=== PATIENT | female | born 1975 | race Caucasian/White ===

== ENCOUNTER 2017-08-07 12:17 | Emergency (ER) | payer SELFPAY ==
[~2017-08-07] VITALS: Ht 152.4 cm; Wt 47.2 kg
[2017-08-07 12:29] VITALS: BP 117/61
--- NOTE | 2017-08-07 12:35 | PHYS DOC ---
Adult General Chief Complaint Chief Complaint: BACK PAIN - NO INJURY HPI HPI Patient is a 41 year old female who presents with thoracic lumbar pain. She was riding a horse yesterday and got bucked off and landed on the ground. She states she started having pain in her back between her shoulder blades. She denies any numbness or tingling or weakness in her arms or legs. She's been taking Tylenol without any relief. Review of Systems Review of Systems Constitutional: Denies fever or chills [] Eyes: Denies change in visual acuity, redness, or eye pain [] HENT: Denies nasal congestion or sore throat [] Respiratory: Denies cough or shortness of breath [] Cardiovascular: No additional information not addressed in HPI [] GI: Denies abdominal pain, nausea, vomiting, bloody stools or diarrhea [] : Denies dysuria or hematuria [] Musculoskeletal: Positive for back pain, Denies joint pain [] Integument: Denies rash or skin lesions [] Neurologic: Denies headache, focal weakness or sensory changes [] Endocrine: Denies polyuria or polydipsia [] Physical Exam Physical Exam Constitutional: Well developed, well nourished, no acute distress, non-toxic appearance. [] HENT: Normocephalic, atraumatic, bilateral external ears normal, oropharynx moist, no oral exudates, nose normal. [] Eyes: PERRLA, EOMI, conjunctiva normal, no discharge. [] Neck: Normal range of motion, no tenderness, supple, no stridor. [] Cardiovascular:Heart rate regular rhythm, no murmur [] Lungs & Thorax: Bilateral breath sounds clear to auscultation [] Abdomen: Bowel sounds normal, soft, no tenderness, no masses, no pulsatile masses. [] Skin: Warm, dry, no erythema, no rash. [] Back: Mild tenderness palpation midline to the thoracic area, no step-offs noted , no CVA tenderness. [] Extremities: No tenderness, no cyanosis, no clubbing, ROM intact, no edema. [] Neurologic: Alert and oriented X 3, normal motor function, normal sensory function, no focal deficits noted. [] Psychologic: Affect normal, judgement normal, mood normal. [] EKG EKG [] Radiology/Procedures Radiology/Procedures [address] [id number] IMAGING REPORT Signed PATIENT: SIMON AZAR ACCOUNT: [id number] : 1975 LOCATION: ER AGE: 41 SEX: F EXAM STATUS: REG ER ORD. PHYSICIAN: JEFFRY DUNNE MD REASON: pain after fall PROCEDURE: THORACIC SPINE 3V Thoracic spine, 3 views, 08/07/2017: History: Fall, back pain There is a mild right convexity thoracic scoliosis. No fracture or bony abnormality is detected. The paraspinous soft tissues are unremarkable. IMPRESSION: 1. Mild thoracic scoliosis. 2. No acute bony abnormality is detected. DICTATED AND SIGNED BY: ESPERANZA CARR MD DATE: 08/07/17 1255 CC: JEFFRY DUNNE MD; PCP,NO ~ Impressions: Back strain Course & Med Decision Making Course & Med Decision Making Pertinent Labs and Imaging studies reviewed. (See chart for details) X-rays do not show any acute abnormalities of her thoracic back. Her pain is between her shoulder blades. She has no neurological deficits. She has baclofen refill that she can obtain. She used to be on 10 mg hydrocodone before she went to retirement. She has an appointment in 3-4 days with his surgeon. I've instructed her to use [place] as instructed not to drive or drink alcohol with it. She is agreeable plan being discharged in stable condition this time. Dragon Disclaimer Dragon Disclaimer This chart was dictated in whole or in part using Voice Recognition software in a busy, high-work load, and often noisy Emergency Department environment. It may contain unintended and wholly unrecognized errors or omissions. Departure Departure: Impression: Primary Impression: Back pain Disposition: 01 HOME, SELF-CARE Condition: STABLE Referrals: PCP,NO (PCP) Patient Instructions: Back Pain, Adult Additional Instructions: The x-rays your back did not show anything broken. Your being discharged home. You can use your baclofen as instructed for discomfort and pain. You can use [place] as instructed. Do not use these medicines together. Do not drive or taking these medicines or drink alcohol. Return the ER if you have worsening pain, numbness or weakness in your arms or legs or other concerns. Scripts Hydrocodone Bit/Acetaminophen (NORCO 5-325 TABLET) 1 Each Tablet 1-2 TAB PO PRN Q6HRS Y for PAIN, #10 TAB 0 Refills Prov: JEFFRY DUNNE MD 08/07/17 Problem Qualifiers Primary Impression: Back pain Back pain location: thoracic back pain Chronicity: acute Back pain laterality: midline Qualified Codes: M54.6 - Pain in thoracic spine JEFFRY DUNNE MD Aug 07, 2017 12:35
--- NOTE | 2017-08-07 12:59 | RAD ---
Thoracic spine, 3 views, 08/07/2017: History: Fall, back pain There is a mild right convexity thoracic scoliosis. No fracture or bony abnormality is detected. The paraspinous soft tissues are unremarkable. IMPRESSION: 1. Mild thoracic scoliosis. 2. No acute bony abnormality is detected.
[2017-08-07] MEDS ORDERED: HYDR-971 PO (13:21)
== END 2017-08-07 13:31 | disposition home or self-care (01) ==
LOC: ER 12:17
DX: S29.012A Strain of muscle and tendon of back wall of thorax, initial encounter (principal); M54.5 Low back pain; V80.010A Animal-rider injured by fall from or being thrown from horse in noncollision accident, initial encounter; Y93.52 Activity, horseback riding; Y99.8 Other external cause status; Y92.89 Other specified places as the place of occurrence of the external cause
CPT/HCPCS: 72072; 99284

== ENCOUNTER 2018-08-06 17:18 | Emergency (ER) | payer SELFPAY ==
[~2018-08-06] VITALS: Ht 152.4 cm; Wt 56.7 kg
[~2018-08-06 17:18] MED LIST: HYDR-971 PO
--- NOTE | 2018-08-06 18:36 | ED.ADGEN ---
Past History Past Medical History: Other Past Surgical History: Cholecystectomy, Tubal ligation, Other Alcohol Use: Rarely Drug Use: None Adult General Chief Complaint Chief Complaint "... I tripped over my chocolate Lab... he 's 9 month old...is name is Dian.. and I feel down 15 stairs.. nga hurt my entire right side..." HPI HPI Patient is a 42 year old female who presents with the above history and complaints of fall down stairs after tripping on her dog. Patient localizes pain and right shoulder, side and back. Patient is ambulatory. Patient has had extensive surgery on her lower back previously. Pain appears to be localized in rotator cuff area. Patient is able to hold arm extended on right. But does have some give way weakness with elevation above 90. Distal neurovascular intact. DTRs are +2 at patella and brachial. Patient denies any other injury. Review of Systems Review of Systems Constitutional: Denies fever or chills [] Eyes: Denies change in visual acuity, redness, or eye pain [] HENT: Denies nasal congestion or sore throat [] Respiratory: Denies cough or shortness of breath [] Cardiovascular: No additional information not addressed in HPI [] GI: Denies abdominal pain, nausea, vomiting, bloody stools or diarrhea [] : Denies dysuria or hematuria [] Musculoskeletal: Complaints of back pain and right shoulder joint pain Integument: Denies rash or skin lesions [] Neurologic: Denies headache, focal weakness or sensory changes [] Endocrine: Denies polyuria or polydipsia [] All other systems were reviewed and found to be within normal limits, except as documented in this note. Family History Family History Noncontributory Current Medications Current Medications Current Medications Medications (Trade) Dose Ordered Sig/Geovanny Start Time Stop Time Status Last Admin Dose Admin Oxycodone/ Acetaminophen (Percocet 5/325) 2 tab 1X ONCE 08/06/18 19:00 08/06/18 19:01 DC 08/06/18 19:02 2 TAB Allergies Allergies Allergies Coded Allergies Type Severity Reaction Last Updated Verified cyclobenzaprine Allergy Unknown 08/07/17 Yes meloxicam Allergy Unknown 08/07/17 Yes naproxen Allergy Unknown 08/07/17 Yes tramadol Allergy Unknown 08/07/17 Yes Physical Exam Physical Exam Constitutional: Moderately acute distress, non-toxic appearance. [] HENT: Normocephalic, atraumatic, bilateral external ears normal, oropharynx moist, no oral exudates, nose normal. [] Eyes: PERRLA, EOMI, conjunctiva normal, no discharge. [] Neck: Normal range of motion, no tenderness, supple, no stridor. [] Cardiovascular:Heart rate regular rhythm, no murmur [] Lungs & Thorax: Bilateral breath sounds equal at apexes with a few scattered wheezes auscultation [] Abdomen: Bowel sounds normal, soft, no liver or spleen tenderness, no masses, no pulsatile masses. [] Skin: Warm, dry, no erythema, no rash. [] Back: Some paraspinal muscle tenderness tenderness, no CVA tenderness. [Has old surgery scar in the thoracic and lumbar spine.] Extremities: No tenderness, no cyanosis, no clubbing, ROM intact, no edema. Right shoulder tenderness as per HPI Neurologic: Alert and oriented X 3, normal motor function, normal sensory function, no focal deficits noted. [] Psychologic: Affect chest, judgement normal, mood normal. [] Current Patient Data Vital Signs Vital Signs Date Time Temp Pulse Resp B/P (MAP) Pulse Ox O2 Delivery O2 Flow Rate FiO2 08/06/18 19:02 16 08/06/18 18:57 75 131/73 (92) 100 Room Air 08/06/18 17:30 98.2 EKG EKG [] Radiology/Procedures Radiology/Procedures My interpretation of thoracic film shows scoliosis. No obvious fracture dislocation. My interpretation of shoulder shows no obvious displaced fracture or dislocation. No obvious fracture clavicle. Lung portion film shows no obvious pneumothorax or acute cardiopulmonary changes. See formal report when available[] Course & Med Decision Making Course & Med Decision Making Pertinent Labs and Imaging studies reviewed. (See chart for details). Patient use ice packs as needed to contusions , back and shoulder. Patient may use a sling for comfort but allow passive range of motion of right shoulder. Follow-up primary care. Consider follow-up orthopedics. Take Tylenol for pain. . Return if any concerns. [] Final Impression Final Impression 1. Fall 2. Rt shoulder, clavicle and back contusion[] 3. Rt Rotator Cuff tear / Shoulder impaction Dragfarheen Disclaimer Dragon Disclaimer This electronic medical record was generated, in whole or in part, using a voice recognition dictation system. SHAWANDA MORALES MD Aug 06, 2018 18:36
[2018-08-06 18:57] VITALS: BP 131/73
[2018-08-06] MEDS ORDERED: oxyCODONE/APAP 5/325 1 TAB TABLET PO ONE (19:00)
--- NOTE | 2018-08-07 08:21 | RAD ---
SHOULDER 2+V RIGHT, CLAVICLE RIGHT, THORACIC SPINE 3V Clinical Indication: Fall last night. Right shoulder and clavicle pain, upper back pain. Comparison: Thoracic spine, 3 views, August 07, 2017. Findings: The paravertebral stripes are smooth. Visualized lungs are clear. Cholecystectomy clips. Cardiac size normal. The vertebral body height and alignment are maintained in the thoracic spine. Cervical spine alignment is maintained on the swimmer's view. There is no acute fracture or dislocation of the right shoulder. The joint spaces are maintained. No soft tissue swelling. No acute right rib abnormality. There is no acute fracture or dislocation of the right clavicle. IMPRESSION: No acute bone abnormality. Electronically signed by: Umesh Wellington MD (08/07/2018 8:18 AM) [id number]
== END 2018-08-06 19:05 | disposition home or self-care (01) ==
LOC: ER 17:18
DX: S40.011A Contusion of right shoulder, initial encounter (principal); S10.93XA Contusion of unspecified part of neck, initial encounter; S20.221A Contusion of right back wall of thorax, initial encounter; Z88.8 Allergy status to other drugs, medicaments and biological substances; W10.8XXA Fall (on) (from) other stairs and steps, initial encounter; Y93.89 Activity, other specified; Y92.89 Other specified places as the place of occurrence of the external cause; Y99.8 Other external cause status
CPT/HCPCS: 72072; 73000; 73030; 99284

== ENCOUNTER 2019-01-05 19:13 | Emergency (ER) | payer SELFPAY ==
[~2019-01-05] VITALS: Ht 152.4 cm; Wt 43.1 kg
[~2019-01-05 19:13] MED LIST changes: +HYDR-3165 PO; -HYDR-971 PO
--- NOTE | 2019-01-05 19:33 | ED.ADGEN ---
Past History Past Medical History: Other Past Surgical History: Cholecystectomy, Tubal ligation, Other Alcohol Use: Rarely Drug Use: None Adult General Chief Complaint Chief Complaint "... I was riding 'Snowball' .. this morning.. and she got spoked.. and threw me off... .I landed on my Rt shoulder....but I am still hurting... HPI HPI Patient is a 43 year old female who presents with above hx and complaints of pain after fall from her horse " Snowball". Patient fell onto her right side. Patient localizes her pain in right shoulder clavicle and scapular area. Does have some mild tenderness to right chest wall. Injury occurred this morning however discomfort is not resolved. Patient denies any other injury. Patient is right-hand dominant. Patient normally healthy. No history immunosuppression. No specific ill contacts.. Review of Systems Review of Systems Constitutional: Denies fever or chills [] Eyes: Denies change in visual acuity, redness, or eye pain [] HENT: Denies nasal congestion or sore throat [] Respiratory: Denies cough or shortness of breath [] Cardiovascular: No additional information not addressed in HPI [] GI: Denies abdominal pain, nausea, vomiting, bloody stools or diarrhea [] : Denies dysuria or hematuria [] Musculoskeletal: Complains of right shoulder, trapezius, clavicle, and scapular pain Integument: Denies rash or skin lesions [] Neurologic: Denies headache, focal weakness or sensory changes [] Endocrine: Denies polyuria or polydipsia [] All other systems were reviewed and found to be within normal limits, except as documented in this note. Family History Family History Noncontributory Current Medications Current Medications Current Medications Medications (Trade) Dose Ordered Sig/Geovanny Start Time Stop Time Status Last Admin Dose Admin Oxycodone/ Acetaminophen (Percocet 5/325) 2 tab 1X ONCE 01/05/19 20:00 01/05/19 20:06 DC 01/05/19 20:19 2 TAB Allergies Allergies Allergies Coded Allergies Type Severity Reaction Last Updated Verified cyclobenzaprine Allergy Unknown 08/07/17 Yes meloxicam Allergy Unknown 08/07/17 Yes naproxen Allergy Unknown 08/07/17 Yes tramadol Allergy Unknown 08/07/17 Yes Physical Exam Physical Exam Constitutional: Well developed, well nourished, [id number] distress, non- toxic appearance. [] HENT: Normocephalic, atraumatic, bilateral external ears normal, oropharynx moist, no oral exudates, nose normal. [] Eyes: PRRLA, EOMI, conjunctiva normal, no discharge. 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 [] Cardiovascular:Heart rate regular rhythm, no murmur [] Lungs & Thorax: Bilateral breath sounds equal at apexes with scattered wheezes on auscultation []Mild right chest wall tenderness. Abdomen: Bowel sounds normal, soft, no tenderness, no masses, no pulsatile masses. [] Old surgery scars. Skin: Warm, dry, no erythema, no rash. [] Back: No tenderness, no CVA tenderness. [] Extremities: No tenderness, no cyanosis, no clubbing, ROM intact, no edema. [] Except findings in right shoulder. Patient has deltoid sensation in right shoulder. Does have some weakness in right shoulder when held in extension. Has obvious right trapezius spasm. Distal neurovascular does however appear intact. Neurologic: Alert and oriented X 3, normal motor function, normal sensory function, no focal deficits noted. [] Psychologic: Affect normal, judgement normal, mood normal. [] Current Patient Data Vital Signs Vital Signs Date Time Temp Pulse Resp B/P (MAP) Pulse Ox O2 Delivery O2 Flow Rate FiO2 01/05/19 20:19 Room Air 01/05/19 19:35 98.2 69 18 98 EKG EKG [] Radiology/Procedures Radiology/Procedures My interpretation chest x-ray shows no acute cardiopulmonary findings. No pneumothorax. No obvious displaced rib fractures. No obvious clavicle fracture. Right shoulder shows no obvious dislocation or fracture. Does have findings of previous surgical clips in abdomen. See formal report when available[]. Course & Med Decision Making Course & Med Decision Making Pertinent Labs and Imaging studies reviewed. (See chart for details). Patient use ice packs as needed. Patient take Tylenol and ibuprofen as needed for pain. For marked pain may take Percocet up to 4 times a day. Patient to wear sling. Patient follow-up with primary and orthopedics. Patient take arm out of sling to do passive range of motion 4 times a day. Patient return if any concerns. Patient encouraged not to smoke. [] Final Impression Final Impression 1. Contusion Rt. shoulder 2. Partial Rt Rotator cu[ff and AC tear] Dragon Disclaimer Dragon Disclaimer This electronic medical record was generated, in whole or in part, using a voice recognition dictation system. Discharge Summary Visit Information Final Diagnosis Problems Medical Problems: (1) AC separation Status: Acute (2) Animal-rider injured by fall from or being thrown from horse in noncollision accident, sequela Status: Acute (3) Rotator cuff (capsule) sprain Status: Acute Brief Hospital Course Allergies Allergies Coded Allergies Type Severity Reaction Last Updated Verified cyclobenzaprine Allergy Unknown 08/07/17 Yes meloxicam Allergy Unknown 08/07/17 Yes naproxen Allergy Unknown 08/07/17 Yes tramadol Allergy Unknown 08/07/17 Yes Vital Signs Vital Signs Date Time Temp Pulse Resp B/P (MAP) Pulse Ox O2 Delivery O2 Flow Rate FiO2 01/05/19 20:19 Room Air 01/05/19 19:35 98.2 69 18 98 Brief Hospital Course Ms. Mancini is a 43 old female who presented with hx of fall from her horse " Snow ball". Suspect partial rotatory cuff tear and ac separation. Discharge Information Condition at Discharge: Improved, Stable Disposition/Orders: D/C to Home Dischare Medications Current Medications Oxycodone/ Acetaminophen (Percocet 5/325) 2 tab 1X ONCE PO Last administered on 01/05/19at 20:19; Admin Dose 2 TAB; Start 01/05/19 at 20:00; Stop 01/05/19 at 20:06; Status DC Active Scripts Active Percocet 5-325 Mg Tablet (Oxycodone Hcl/Acetaminophen) 1 Each Tablet 1 Tab PO PRN Q6HRS PRN Ipava 5-325 Tablet (Hydrocodone Bit/Acetaminophen) 1 Each Tablet 1-2 Tab PO PRN Q6HRS PRN Dragon Disclaimer This chart was dictated in whole or in part using Voice Recognition software in a busy, high-work load, and often noisy Emergency Department environment. It may contain unintended and wholly unrecognized errors or omissions. SHAWANDA MORALES MD Jan 05, 2019 19:33
[2019-01-05 19:35] VITALS: BP 127/52
[2019-01-05] MEDS ORDERED: oxyCODONE/APAP 5/325 1 TAB TABLET PO ONE (20:00)
[2019-01-05] MEDS ORDERED: OXYC1TAB15 PO (20:05)
--- NOTE | 2019-01-05 20:17 | RAD ---
SHOULDER 2+V RIGHT, CHEST PA LATERAL History: fall from horse, right shoulder pain Comparison: None. Findings: The cardiomediastinal silhouette is normal. Pulmonary vasculature is normal. The lungs are clear. No pleural effusion or pneumothorax is seen. There is no acute bone abnormality. Right upper quadrant surgical clips are present. Three-view right shoulder x-ray exam was performed. Joint spaces are normal. No fracture or bony destruction. Soft tissues are unremarkable. IMPRESSION: No acute cardiopulmonary process. If the bony thorax fracture is a persistent concern, consider further imaging assessment. Right shoulder is unremarkable. Electronically signed by: Chuy De La Garza MD (01/05/2019 8:14 PM) [facility]
== END 2019-01-05 20:50 | disposition home or self-care (01) ==
LOC: ER 19:13
DX: S43.101A Unspecified dislocation of right acromioclavicular joint, initial encounter (principal); S43.421A Sprain of right rotator cuff capsule, initial encounter; R07.89 Other chest pain; Z88.6 Allergy status to analgesic agent; Z88.8 Allergy status to other drugs, medicaments and biological substances; V80.010A Animal-rider injured by fall from or being thrown from horse in noncollision accident, initial encounter; Y93.29 Activity, other involving ice and snow; Y92.89 Other specified places as the place of occurrence of the external cause; Y99.8 Other external cause status
CPT/HCPCS: 71046; 73030; 99284

== ENCOUNTER 2019-01-27 20:15 | Emergency (ER) | payer SELFPAY ==
[~2019-01-27] VITALS: Ht 152.4 cm; Wt 45.4 kg
[~2019-01-27 20:15] MED LIST changes: +OXYC1TAB15 PO
--- NOTE | 2019-01-27 20:53 | PHYS DOC ---
Past History Past Medical History: No Pertinent History Past Surgical History: Cholecystectomy, Alcohol Use: None Drug Use: None Adult General Chief Complaint Chief Complaint: LOWER BACK PAIN OR INJURY HPI HPI Patient is a 43-year-old female who presents with complaint of lower back and tailbone pain after falling at work. Patient rates pain to be moderate. She states that pain is worsened with movement and with palpation of the affected areas. She denies any loss of bowel or bladder function and also denies saddle anesthesia. Review of Systems Review of Systems Constitutional: Denies fever or chills [] Respiratory: Denies cough or shortness of breath [] Cardiovascular: No additional information not addressed in HPI [] : Denies dysuria or hematuria [] Musculoskeletal: Positive lower back pain [] Integument: Denies rash or skin lesions [] Neurologic: Denies headache, focal weakness or sensory changes [] Current Medications Current Medications Current Medications Medications (Trade) Dose Ordered Sig/Geovanny Start Time Stop Time Status Last Admin Dose Admin Acetaminophen/ Codeine Phosphate (Tylenol #3) 1 tab 1X ONCE 01/27/19 21:00 01/27/19 21:01 01/27/19 20:49 1 TAB Allergies Allergies Allergies Coded Allergies Type Severity Reaction Last Updated Verified cyclobenzaprine Allergy Unknown 08/07/17 Yes meloxicam Allergy Unknown 08/07/17 Yes naproxen Allergy Unknown 08/07/17 Yes tramadol Allergy Unknown 08/07/17 Yes Physical Exam Physical Exam Constitutional: Well developed, well nourished, no acute distress, non-toxic appearance. [] Cardiovascular:Heart rate regular rhythm, no murmur [] Lungs & Thorax: Bilateral breath sounds clear to auscultation [] Skin: Warm, dry, no erythema, no rash. [] Back: She reports tenderness to palpation in the mid to lower paraspinal musculature. [] Current Patient Data Vital Signs Vital Signs Date Time Temp Pulse Resp B/P (MAP) Pulse Ox O2 Delivery O2 Flow Rate FiO2 01/27/19 20:49 16 01/27/19 20:20 98.8 68 99 Room Air EKG EKG [] Radiology/Procedures Radiology/Procedures [] Course & Med Decision Making Course & Med Decision Making Pertinent Labs and Imaging studies reviewed. (See chart for details) [] Dragon Disclaimer Dragon Disclaimer This electronic medical record was generated, in whole or in part, using a voice recognition dictation system. Departure Departure: Impression: Primary Impression: Low back strain Additional Impression: Coccyx contusion Disposition: 01 HOME, SELF-CARE Condition: STABLE Referrals: PCP,NO (PCP) Patient Instructions: Form - Excuse from Work, School, or Physical Activity, Lumbosacral Strain, Tailbone Injury Scripts Orphenadrine Citrate (ORPHENADRINE CITRATE) 100 Mg Tablet.er 1 TAB PO BID PRN for MUSCLE SPASMS, #14 TAB Prov: JESS JESSICA Jr. DO 01/27/19 Acetaminophen With Codeine (TYLENOL WITH CODEINE #3 TABLET) 1 Each Tablet 1 TAB PO Q6HRS PRN for PAIN, #12 TAB Prov: JESS JESSICA Jr. DO 01/27/19 Problem Qualifiers Primary Impression: Low back strain Encounter type: initial encounter Qualified Codes: S39.012A - Strain of muscle, fascia and tendon of lower back, initial encounter Additional Impression: Coccyx contusion Encounter type: initial encounter Qualified Codes: S30.0XXA - Contusion of lower back and pelvis, initial encounter JESS JESSICA Jr. DO Jan 27, 2019 20:53
[2019-01-27] MEDS ORDERED: ACETAMINOPHEN/CODEINE 300/30MG TABLET PO ONE (21:00)
[2019-01-27 21:25] VITALS: BP 110/56
[2019-01-27] MEDS ORDERED: ACET-704 PO (21:25)
[2019-01-27] MEDS ORDERED: ORPH-16 PO (21:25)
--- NOTE | 2019-01-28 08:16 | RAD ---
SACRUM COCCYX 3V, LUMBAR SPINE 2-3V Clinical Indication: fall, hit tail bone, low back pain. Comparison: Thoracic spine, 3 views, August 06, 2018. Findings: There is spinous process fusion hardware of L4-L5. Lumbar spine vertebral body height and alignment are maintained. There is disc space narrowing, vacuum disc phenomenon, and endplate spurring and sclerosis of L1/L2. 6 other disc spaces are maintained. The mineralization is normal. The sacroiliac joints are symmetric. No diastasis of symphysis pubis. The hip joints are intact. Sacrum and coccyx alignment is maintained on the lateral view. No acute fracture is seen. There are phleboliths in the pelvis. IMPRESSION: No acute fracture or malalignment. Electronically signed by: Umesh Wellington MD (01/28/2019 8:13 AM) [id number]
== END 2019-01-27 21:30 | disposition home or self-care (01) ==
LOC: ER 20:15
DX: S39.012A Strain of muscle, fascia and tendon of lower back, initial encounter (principal); Z90.49 Acquired absence of other specified parts of digestive tract; Z98.890 Other specified postprocedural states; Z88.6 Allergy status to analgesic agent; Z88.8 Allergy status to other drugs, medicaments and biological substances; W18.39XA Other fall on same level, initial encounter; Y93.89 Activity, other specified; Y92.89 Other specified places as the place of occurrence of the external cause; Y99.0 Civilian activity done for income or pay
CPT/HCPCS: 72100; 72220; 99284

== ENCOUNTER 2019-08-27 10:05 | Emergency (ER) | payer SELFPAY ==
[~2019-08-27] VITALS: Ht 152.4 cm; Wt 47.2 kg
[~2019-08-27 10:05] MED LIST changes: +ACET-704 PO; +ORPH-16 PO
[2019-08-27] MEDS ORDERED: IV NORMAL SALINE 1,000ML 1,000 ML IV ONE (10:45)
[2019-08-27] MEDS ORDERED: ONDANSETRON PF 4 MG/2 ML VIAL. IVP ONE (10:45)
--- NOTE | 2019-08-27 10:49 | PHYS DOC ---
Past History Past Medical History: Kidney Stones, Other Past Surgical History: Cholecystectomy, , Tubal ligation, Other Additional Past Surgical Histo: Left shoulder rotator cuff x 3, L-spine fusion, R eye prosthetic, Smoking: Less than 1pk/day Additional Smoking Information: 4-5 cigs a day Alcohol Use: None Drug Use: None Adult General Chief Complaint Chief Complaint: ABDOMINAL PAIN HPI HPI Patient is a 43 y/o female with a history of kidney stones, tubal ligation, and cholecystectomy presents to the ED with RLQ abdominal pain past 3 days. Associated nausea and vomiting. States that pain stated in her right groin and radiated to her right flank. Her last kidney stnoe was 1 year ago. Denies fever, dysuria, CP and SOB. Review of Systems Review of Systems Constitutional: Denies fever or chills Eyes: Denies redness or eye pain HENT: Denies nasal congestion or sore throat Respiratory: Denies cough or shortness of breath Cardiovascular: Denies chest pain or palpitations GI: Reports RLQ abdominal pain, nausea, or vomiting : Denies dysuria or hematuria Musculoskeletal: Reports right flank pain Integument: Denies rash or skin lesions Complete systems were reviewed and found to be within normal limits, except as documented in this note. Allergies Allergies Allergies Coded Allergies Type Severity Reaction Last Updated Verified cyclobenzaprine Allergy Unknown 08/07/17 Yes meloxicam Allergy Unknown 08/07/17 Yes naproxen Allergy Unknown 08/07/17 Yes tramadol Allergy Unknown 08/07/17 Yes Physical Exam Physical Exam Constitutional: Well developed, well nourished, no acute distress, non-toxic appearance HENT: Normocephalic, atraumatic, oropharynx moist Cardiovascular: Heart rate normal, regular rhythm Lungs & Thorax: Bilateral breath sounds clear to auscultation, no wheezing Abdomen: Right lower quadrant tenderness, pain in RLQ w/ R leg raising Skin: Warm, dry, no erythema, no rash Back: Right flank pain Extremities: No tenderness, ROM intact, no edema Neurologic: Alert and oriented X 3, normal motor function, normal sensory fun ction, no focal deficits noted Psychologic: Affect normal, judgement normal, mood normal Current Patient Data Vital Signs Vital Signs Date Time Temp Pulse Resp B/P (MAP) Pulse Ox O2 Delivery O2 Flow Rate FiO2 08/27/19 10:16 98.3 71 16 98 Room Air EKG EKG [] Radiology/Procedures Radiology/Procedures PROCEDURE: CT ABDOMEN PELVIS WO CONTRAST EXAM: CT ABDOMEN/PELVIS WITHOUT CONTRAST. HISTORY: Right flank pain and hematuria. TECHNIQUE: Computed tomography of the abdomen and pelvis was performed without intravenous contrast. COMPARISON: None. FINDINGS: Lung windows through the visualized portions of the bases reveal mild atelectasis. Bone windows reveal posterior interspinous fusion at L4-5. There are no suspicious lesions. A 7 mm hypoattenuating focus in hepatic segment 2 is most likely a benign cyst. The gallbladder is surgically absent. The pancreas, adrenal glands and spleen are unremarkable. There are no pathologically enlarged lymph nodes. There are no renal or ureteral calculi. There is at least mild right renal atrophy and some urothelial thickening along the renal pelvis. There is no hydronephrosis or focal cortical scarring. No focal renal lesions are appreciated without contrast. There are changes of pelvic floor relaxation. Changes of fallopian tube closure are noted. There is no evidence of appendicitis. There is no small bowel obstruction. IMPRESSION: 1. No renal or ureteral calculi. 2. Mild right renal atrophy. Right urothelial thickening suggests ascending infection or inflammation. No hydronephrosis. *One or more of the following individualized dose reduction techniques were utilized for this examination: 1. Automated exposure control. 2. Adjustment of the mA and/or kV according to patient size. 3. Use of iterative reconstruction technique. Electronically signed by: Doris Watt MD (08/27/2019 12:12 PM) [facility] Course & Med Decision Making Course & Med Decision Making Patient is a 43-year-old female with a history of kidney stones,tubal ligation who presents with right lower quadrant abdominal pain for past 3 days. Associated nausea and vomiting. Pt states this feels like her previous kidney stones. CT abdomen showed no renal or ureteral calculi, mild right renal atroph y, right urothelial thickening suggests ascending infection or inflammation, no hydronephrosis. Will discharge with Keflex and [place]. Patient stable for discharge with outpatient follow-up with PCP. Discussed findings and plan with patient and family, who acknowledge understanding and agreement. Dragon Disclaimer Dragon Disclaimer This electronic medical record was generated, in whole or in part, using a voice recognition dictation system. Departure Departure: Impression: Primary Impression: Pyelonephritis Disposition: 01 HOME, SELF-CARE Condition: STABLE Referrals: PCP,NO (PCP) Patient Instructions: Pyelonephritis, Adult, Humz-kk-Obat Scripts Cephalexin (KEFLEX) 500 Mg Capsule 1 CAP PO TID for Pyelonephritis for 7 Days, #21 CAP 0 Refills Prov: ALISHA FRANKLIN DO 08/27/19 Hydrocodone Bit/Acetaminophen (NORCO 5-325 TABLET) 1 Each Tablet 0.5-1 TAB PO Q6HRS PRN for PAIN, #6 TAB Prov: ALISHA FRANKLIN DO 08/27/19 ALISHA FRANKLIN DO Aug 27, 2019 10:49
[2019-08-27 10:53] LABS: BASO # 0.1 x10^3/uL (0.0-0.2); BASO % 1 % (0-3); EOS # 0.2 x10^3/uL (0.0-0.7); EOS % 2 % (0-3); HEMATOCRIT 44.3 % (36.0-47.0); HEMOGLOBIN 14.7 g/dL (12.0-15.5); LYMPH # 2.5 x10^3/uL (1.0-4.8); LYMPH % 22 % (24-48); MEAN CORPUSCULAR HEMOGLOBIN 30 pg (25-35); MEAN CORPUSCULAR HGB CONC 33 g/dL (31-37); MEAN CORPUSCULAR VOLUME 91 fL (79-100); MONO # 0.8 x10^3/uL (0.0-1.1); MONO % 7 % (0-9); NEUT # 7.5 x10^3uL (1.8-7.7); NEUT % 68 % (31-73); PLATELET COUNT 351 x10^3/uL (140-400); RED BLOOD COUNT 4.89 x10^6/uL (3.50-5.40); RED CELL DISTRIBUTION WIDTH 14.6 % (11.5-14.5); WHITE BLOOD COUNT 11.1 x10^3/uL (4.0-11.0)
[2019-08-27 11:05] LABS: BACTERIA,URINE FEW /HPF (0-FEW); BILIRUBIN,URINE NEG (NEG); CLARITY,URINE HAZY; COLOR,URINE YELLOW; GLUCOSE,URINE NEG (NEG); NITRITE,URINE NEG (NEG); UROBILINOGEN,URINE 0.2 mg/dL (0.2 mg/dL)
[2019-08-27 11:06] LABS: SQUAMOUS EPITHELIAL CELL,UR MOD /LPF
[2019-08-27 11:06] LABS: ALBUMIN 3.9 g/dL (3.4-5.0); ALBUMIN/GLOBULIN RATIO 0.9 (1.0-1.7); CALCIUM 9.3 mg/dL (8.5-10.1); CREATININE 0.7 mg/dL (0.6-1.0); GFR 90.5; MAGNESIUM 2.1 mg/dL (1.8-2.4); POTASSIUM 4.1 mmol/L (3.5-5.1); TOTAL BILIRUBIN 0.5 mg/dL (0.2-1.0); TOTAL PROTEIN 8.1 g/dL (6.4-8.2)
--- NOTE | 2019-08-27 12:15 | RAD ---
EXAM: CT ABDOMEN/PELVIS WITHOUT CONTRAST. HISTORY: Right flank pain and hematuria. TECHNIQUE: Computed tomography of the abdomen and pelvis was performed without intravenous contrast. COMPARISON: None. FINDINGS: Lung windows through the visualized portions of the bases reveal mild atelectasis. Bone windows reveal posterior interspinous fusion at L4-5. There are no suspicious lesions. A 7 mm hypoattenuating focus in hepatic segment 2 is most likely a benign cyst. The gallbladder is surgically absent. The pancreas, adrenal glands and spleen are unremarkable. There are no pathologically enlarged lymph nodes. There are no renal or ureteral calculi. There is at least mild right renal atrophy and some urothelial thickening along the renal pelvis. There is no hydronephrosis or focal cortical scarring. No focal renal lesions are appreciated without contrast. There are changes of pelvic floor relaxation. Changes of fallopian tube closure are noted. There is no evidence of appendicitis. There is no small bowel obstruction. IMPRESSION: 1. No renal or ureteral calculi. 2. Mild right renal atrophy. Right urothelial thickening suggests ascending infection or inflammation. No hydronephrosis. *One or more of the following individualized dose reduction techniques were utilized for this examination: 1. Automated exposure control. 2. Adjustment of the mA and/or kV according to patient size. 3. Use of iterative reconstruction technique. Electronically signed by: Doris Watt MD (08/27/2019 12:12 PM) [facility]
[2019-08-27] MEDS ORDERED: IV NORMAL SALINE 50ML 50 ML ONE (12:27)
[2019-08-27] MEDS ORDERED: cefTRIAXone SODIUM 1 GM VIAL ONE (12:27)
[2019-08-27] MEDS ORDERED: HYDROcodone/APAP 5/325MG 1 TAB TABLET PO ONE (12:30)
[2019-08-27] MEDS ORDERED: CEPH-264 PO (12:35)
[2019-08-27] MEDS ORDERED: HYDR-3165 PO (12:35)
[2019-08-27 13:00] VITALS: BP 116/75
== END 2019-08-27 13:03 | disposition home or self-care (01) ==
LOC: ER 10:05
DX: N12 Tubulo-interstitial nephritis, not specified as acute or chronic (principal); R11.2 Nausea with vomiting, unspecified; F17.210 Nicotine dependence, cigarettes, uncomplicated; Z87.442 Personal history of urinary calculi; Z90.49 Acquired absence of other specified parts of digestive tract; Z98.890 Other specified postprocedural states; Z98.51 Tubal ligation status; Z88.8 Allergy status to other drugs, medicaments and biological substances; Z88.6 Allergy status to analgesic agent
CPT/HCPCS: 36415; 74176; 80053; 81001; 83690; 83735; 85025; 87086; 96361; 96365; 96375; 99285; J0696; J2405; J3010; J7030

== ENCOUNTER 2019-09-06 19:33 | Emergency (ER) | payer SELFPAY ==
[~2019-09-06] VITALS: Ht 152.4 cm; Wt 51.3 kg
[~2019-09-06 19:33] MED LIST changes: +CEPH-264 PO
--- NOTE | 2019-09-06 19:48 | PHYS DOC ---
Past History Past Medical History: Kidney Stones, UTI, Other Past Surgical History: Cholecystectomy, , Tubal ligation, Other Additional Past Surgical Histo: Left shoulder rotator cuff x 3, L-spine fusion, R eye prosthetic, Smoking: Less than 1pk/day Alcohol Use: None Drug Use: None Adult General Chief Complaint Chief Complaint: "... I was here a week or 2 ago and diagnosed with pyelonephritis. I have been taking my Keflex but I still having some pain...' [facility] HPI Patient is a 43 year old female who presents with above hx and complaints of pyelonephritis. Patient seen on [address] that showed right pyelonephritis. No renal stone or obstruction. Patient was discharged on Keflex 500 mg 3 times a day. Patient returns with having continued right flank tenderness. Patient does have a history of kidney stones. Does have occasional nausea. No active vomiting currently. Patient denies any fever or chills. No recent travel. No history immunosuppression. Review of CT on 1120 showed no renal or ureteral calculi. Right renal atrophy, but did have right ureter thickening suggestive of pyelonephritis. Review of Systems Review of Systems Constitutional: Denies fever or chills [] Eyes: Denies change in visual acuity, redness, or eye pain [] HENT: Denies nasal congestion or sore throat [] Respiratory: Denies cough or shortness of breath [] Cardiovascular: No additional information not addressed in HPI [] GI: Complaints of right flank abdominal pain, nausea.. Denies vomiting, bloody stools or diarrhea [] : Denies dysuria or hematuria [] Musculoskeletal: Denies back pain or joint pain [] Integument: Denies rash or skin lesions [] Neurologic: Denies headache, focal weakness or sensory changes [] Endocrine: Denies polyuria or polydipsia [] All other systems were reviewed and found to be within normal limits, except as documented in this note. Family History Family History Noncontributory Current Medications Current Medications He nursing for home meds Allergies Allergies Allergies Coded Allergies Type Severity Reaction Last Updated Verified cyclobenzaprine Allergy Unknown 08/07/17 Yes meloxicam Allergy Unknown 08/07/17 Yes naproxen Allergy Unknown 08/07/17 Yes tramadol Allergy Unknown 08/07/17 Yes Physical Exam Physical Exam Constitutional: Mild acute distress, non-toxic appearance. [] HENT: Normocephalic, atraumatic, bilateral external ears normal, oropharynx moist, no oral exudates, nose normal. [] Eyes: Lt eye pupil reactive to light and EOMI. Rt. eye is glass, , conjunctiva normal, no discharge. [] Neck: Normal range of motion, no tenderness, supple, no stridor. [] Cardiovascular:Heart rate regular rhythm, no murmur [] Lungs & Thorax: Bilateral breath sounds equal at apex with few scattered wheezes on auscultation [] Abdomen: Bowel sounds decreased,, soft, right flank tenderness, no masses, no pulsatile masses. []Old surgery scars . Mild rebound to right flank. Distended. Skin: Warm, dry, no erythema, no rash. [] Back: No tenderness, right CVA tenderness. [] Extremities: No tenderness, no cyanosis, no clubbing, ROM intact, no edema. No psoas sign. Neurologic: Alert and oriented X 3, normal motor function, normal sensory function, no focal deficits noted. [] Psychologic: Affect anxious, judgement normal, mood normal. [] EKG EKG [] Radiology/Procedures Radiology/Procedures [][place] [id number] IMAGING REPORT Signed PATIENT: SIMON AZAR ACCOUNT: [id number] : 1975 LOCATION: ER AGE: 43 SEX: F EXAM STATUS: REG ER ORD. PHYSICIAN: SHAWANDA MORALES MD REASON: abdomen pain,X 2 WEEKS, H/O DOREEN. L-SPINE SURGERY-YEARS AGO PROCEDURE: ACUTE ABDOMEN SERIES PA chest and AP upright supine abdomen x-rays HISTORY: Abdominal pain, cholecystectomy. COMPARISON: CT abdomen August 27, 2019. FINDINGS: Heart and mediastinum are unremarkable. No pulmonary opacities or pleural effusions. Cholecystectomy clips. Spinous process fusion hardware L4-L5. Moderate volume of stool. No dilated small bowel loops. No abnormal air-fluid levels in the bowel. Pelvic phleboliths. IMPRESSION: Constipation with a moderate volume of stool. No small bowel obstruction. No acute process in the chest. Electronically signed by: Lola Mo MD (09/06/2019 8:17 PM) [facility] DICTATED AND SIGNED BY: LOLA MO MD DATE: 09/06/192016 CC: SHAWANDA MORALES MD; PCP,SANTANA ~ Course & Med Decision Making Course & Med Decision Making Pertinent Labs and Imaging studies reviewed. (See chart for details) Impression: 1. Rt. Flank Abd. Pain- Renal Colic 2. Out Pt. Tx. Failure 3. Pyelonephrosis/ itis 4. Leukocytosis 5. Hx UTI 6. Constipation Pt. admitted, but before transport up the [place], decided she want discharge. Risks discussed with pt. Exhibit [employer] capacity. Will discharge on Keflex and Flagyl. Pt. informed may return at any time if she elects to be admitted. [] Dragon Disclaimer Dragon Disclaimer This electronic medical record was generated, in whole or in part, using a voice recognition dictation system. Departure Departure: Disposition: 01 HOME/RESIDENCE PRIOR TO ADM Condition: STABLE Referrals: PCP,SANTANA (PCP) Scripts Metronidazole (FLAGYL) 500 Mg Tablet 500 MG PO TID for pyleonephitis for 10 Days, #30 TAB Prov: SHAWANDA MORALES MD 09/06/19 Cephalexin (KEFLEX) 500 Mg Capsule 500 MG PO TID for pyelonephritis for 10 Days, BOTTLE Prov: SHAWANDA MORALES MD 09/06/19 Dragon Disclaimer This chart was dictated in whole or in part using Voice Recognition software in a busy, high-work load, and often noisy Emergency Department environment. It may contain unintended and wholly unrecognized errors or omissions. Dragon Disclaimer This chart was dictated in whole or in part using Voice Recognition software in a busy, high-work load, and often noisy Emergency Department environment. It may contain unintended and wholly unrecognized errors or omissions. SHAWANDA MORALES MD Sep 06, 2019 19:48
[2019-09-06] MEDS ORDERED: IV RINGERS SOLUTION,LACTATED 1,000 ML IV ONE (20:00)
[2019-09-06 20:13] LABS: BARBITURATES NEG (NEG); BENZODIAZEPINES NEG (NEG); CANNABINOIDS NEG (NEG); COCAINE NEG (NEG); METHADONE NEG (NEG); OPIATES POS (NEG); PHENCYCLIDINE NEG (NEG)
[2019-09-06 20:14] LABS: BILIRUBIN,URINE NEG (NEG); CLARITY,URINE CLEAR; COLOR,URINE YELLOW; GLUCOSE,URINE NEG (NEG); NITRITE,URINE NEG (NEG); UROBILINOGEN,URINE 2 mg/dL (0.2 mg/dL)
[2019-09-06 20:15] LABS: BACTERIA,URINE FEW /HPF (0-FEW); RBC,URINE OCC /HPF (0-2); SQUAMOUS EPITHELIAL CELL,UR MOD /LPF; WBC,URINE RARE /HPF (0-4)
[2019-09-06] MEDS ORDERED: KETOROLAC 30 MG/ML VIAL. IVP ONE (20:15)
[2019-09-06 20:18] LABS: AMPHETAMINE/METHAMPHETAMINE NEG (NEG)
--- NOTE | 2019-09-06 20:20 | RAD ---
PA chest and AP upright supine abdomen x-rays HISTORY: Abdominal pain, cholecystectomy. COMPARISON: CT abdomen August 27, 2019. FINDINGS: Heart and mediastinum are unremarkable. No pulmonary opacities or pleural effusions. Cholecystectomy clips. Spinous process fusion hardware L4-L5. Moderate volume of stool. No dilated small bowel loops. No abnormal air-fluid levels in the bowel. Pelvic phleboliths. IMPRESSION: Constipation with a moderate volume of stool. No small bowel obstruction. No acute process in the chest. Electronically signed by: Adin Riley MD (09/06/2019 8:17 PM) [facility]
[2019-09-06] MEDS ORDERED: IV NORMAL SALINE 100ML 100 ML ONE (20:21)
[2019-09-06 20:34] LABS: BASO # 0.1 x10^3/uL (0.0-0.2); BASO % 1 % (0-3); EOS # 0.2 x10^3/uL (0.0-0.7); EOS % 2 % (0-3); HEMATOCRIT 38.2 % (36.0-47.0); HEMOGLOBIN 12.8 g/dL (12.0-15.5); LYMPH # 2.8 x10^3/uL (1.0-4.8); LYMPH % 28 % (24-48); MEAN CORPUSCULAR HEMOGLOBIN 30 pg (25-35); MEAN CORPUSCULAR HGB CONC 34 g/dL (31-37); MEAN CORPUSCULAR VOLUME 90 fL (79-100); MONO # 1.1 x10^3/uL (0.0-1.1); MONO % 11 % (0-9); NEUT # 5.7 x10^3uL (1.8-7.7); NEUT % 58 % (31-73); PLATELET COUNT 365 x10^3/uL (140-400); RED BLOOD COUNT 4.26 x10^6/uL (3.50-5.40); RED CELL DISTRIBUTION WIDTH 14.3 % (11.5-14.5); WHITE BLOOD COUNT 9.8 x10^3/uL (4.0-11.0)
[2019-09-06 20:50] LABS: ALBUMIN 3.5 g/dL (3.4-5.0); ALBUMIN/GLOBULIN RATIO 0.9 (1.0-1.7); C REACTIVE PROTEIN 34.3 mg/L (0-3.3); CREATININE 0.8 mg/dL (0.6-1.0); GFR 77.6; POTASSIUM 3.6 mmol/L (3.5-5.1); TOTAL BILIRUBIN 0.7 mg/dL (0.2-1.0); TOTAL PROTEIN 7.4 g/dL (6.4-8.2)
[2019-09-06] MEDS ORDERED: ACETAMINOPHEN 325 MG TABLET PO PRN (21:15)
[2019-09-06] MEDS ORDERED: KETOROLAC 15 MG/ML VIAL. IVP PRN (21:15)
[2019-09-06] MEDS ORDERED: ONDANSETRON PF 4 MG/2 ML VIAL. IV PRN (21:15)
[2019-09-06 21:36] LABS: SEDIMENTATION RATE 35 (0-25)
[2019-09-06 22:16] VITALS: BP 105/64
[2019-09-06] MEDS ORDERED: METR500T PO (22:35)
[2019-09-06] MEDS ORDERED: CEPH-264 PO (22:35)
[2019-09-06] MEDS ORDERED: MAGNESIUM HYDROXIDE 2,400 MG/30 ML ORAL.SUSP. ONE (22:40)
[2019-09-06] MEDS ORDERED: MAGNESIUM HYDROXIDE 2,400 MG/30 ML ORAL.SUSP. PO ONE (22:45)
[2019-09-07] MEDS ORDERED: IV RINGERS SOLUTION,LACTATED 1,000 ML IV SCH (06:00)
[2019-09-07] MEDS ORDERED: IPRATRPIUM/ALBUTEROL 0.5/2.5MG 3 ML NEBU. NEB SCH (08:00)
== END 2019-09-06 22:42 | disposition home or self-care (01) ==
LOC: ER 19:33
DX: N23 Unspecified renal colic (principal); N12 Tubulo-interstitial nephritis, not specified as acute or chronic; D72.829 Elevated white blood cell count, unspecified; K59.00 Constipation, unspecified; Z87.440 Personal history of urinary (tract) infections; Z87.442 Personal history of urinary calculi; Z90.49 Acquired absence of other specified parts of digestive tract; Z98.890 Other specified postprocedural states; Z98.51 Tubal ligation status; F17.200 Nicotine dependence, unspecified, uncomplicated; Z88.8 Allergy status to other drugs, medicaments and biological substances; Z88.6 Allergy status to analgesic agent
CPT/HCPCS: 36415; 74022; 80048; 80053; 80307; 81001; 82150; 83690; 84702; 85025; 85610; 85651; 85730; 86140; 87040; 87086; 96365; 96367; 96375; 99285; J0696; J1885; J3490; J7120

== ENCOUNTER 2019-09-10 10:46 | Emergency (ER) | payer SELFPAY ==
[~2019-09-10] VITALS: Ht 152.4 cm; Wt 47.2 kg
[~2019-09-10 10:46] MED LIST changes: +METR500T PO
[2019-09-10] MEDS ORDERED: IV NORMAL SALINE 1,000ML 1,000 ML IV SCH (11:14)
[2019-09-10 11:26] LABS: BASO # 0.1 x10^3/uL (0.0-0.2); BASO % 1 % (0-3); EOS # 0.2 x10^3/uL (0.0-0.7); EOS % 2 % (0-3); HEMATOCRIT 41.7 % (36.0-47.0); HEMOGLOBIN 13.9 g/dL (12.0-15.5); LYMPH # 2.5 x10^3/uL (1.0-4.8); LYMPH % 24 % (24-48); MEAN CORPUSCULAR HEMOGLOBIN 30 pg (25-35); MEAN CORPUSCULAR HGB CONC 33 g/dL (31-37); MEAN CORPUSCULAR VOLUME 90 fL (79-100); MONO # 0.7 x10^3/uL (0.0-1.1); MONO % 7 % (0-9); NEUT # 7.2 x10^3uL (1.8-7.7); NEUT % 68 % (31-73); PLATELET COUNT 405 x10^3/uL (140-400); RED BLOOD COUNT 4.65 x10^6/uL (3.50-5.40); RED CELL DISTRIBUTION WIDTH 14.2 % (11.5-14.5); WHITE BLOOD COUNT 10.7 x10^3/uL (4.0-11.0)
--- NOTE | 2019-09-10 11:26 | PHYS DOC ---
Past History Past Medical History: Kidney Stones, UTI, Other Additional Past Medical Histor: BACK PROBLEMS Past Surgical History: Cholecystectomy, , Tubal ligation, Other Additional Past Surgical Histo: Left shoulder rotator cuff x 3, L-spine fusion, R eye prosthetic, Smoking: Less than 1pk/day Alcohol Use: Rarely Drug Use: None Adult General Chief Complaint Chief Complaint: ABDOMINAL PAIN HPI HPI Patient is a 43-year-old female who presents to the emergency department for evaluation. She states for the past 2 weeks, she has had some right-sided flank and abdominal pain, and was diagnosed with pyelonephritis during 2 prior ER visits on the and 06 of September. She did have a CT scan on her first visit, and her urine tests and lab tests have been reviewed, as have the ER notes, and her CT report. Her urine cultures did not grow any bacteria. She states that she has had persistent pain. She took the course of Keflex, but did not fill the Bactrim that was prescribed on her last visit she states. She states that she has continued to have pain, and has been getting worse, with increasing pain, and persistent vomiting for the past few days. She denies any diarrhea, or dysuria, but does report some generalized decreased urine output. She has reported some intermittent low-grade fevers. There are no other alleviating or exacerbating factors to her symptoms. She denies any dysuria, urinary frequency or hesitancy. Denies vaginal discharge, or concern for STD. Review of Systems Review of Systems Constitutional: Denies fever or chills [] Eyes: Denies change in visual acuity, redness, or eye pain [] HENT: Denies nasal congestion or sore throat [] Respiratory: Denies cough or shortness of breath [] Cardiovascular: The patient denies any shortness of breath, chest pain, palpitations, or orthopnea[] GI: As per history of present illness[] : Denies dysuria or hematuria [] Musculoskeletal: Denies back pain or joint pain [] Integument: Denies rash or skin lesions [] Neurologic: Denies headache, focal weakness or sensory changes [] Endocrine: Denies polyuria or polydipsia [] All other systems were reviewed and found to be within normal limits, except as documented in this note. Current Medications Current Medications Current Medications Medications (Trade) Dose Ordered Sig/Geovanny Start Time Stop Time Status Last Admin Dose Admin Sodium Chloride 1,000 ml @ 1,000 mls/hr Q1H 09/10/19 11:14 09/10/19 12:13 UNV Allergies Allergies Allergies Coded Allergies Type Severity Reaction Last Updated Verified cyclobenzaprine Allergy Unknown 08/07/17 Yes meloxicam Allergy Unknown 08/07/17 Yes naproxen Allergy Unknown 08/07/17 Yes tramadol Allergy Unknown 08/07/17 Yes Physical Exam Physical Exam PHYSICAL EXAM: CONSTITUTIONAL: Well developed, well nourished HEAD: normocephalic, atraumatic EENT: PERRL, EOMI. Conjunctivae normal color, sclerae non-icteric; moist mucous membranes. NECK: Supple, non-tender; no meningismus. LUNGS: Lungs CTA, breathing even and unlabored. Normal air movement. HEART: Regular rate and rhythm, no murmur CHEST: No deformity; non-tender ABDOMEN: The abdomen is soft, there is diffuse right lower quadrant tenderness to palpation, the remainder of the abdomen is soft and non-tender, no masses or bruits. EXTREM: Normal ROM; no deformity, no calf tenderness. Normal pulses palpable in all extremities. There is no pedal edema. SKIN: No rash; no diaphoresis NEURO: Alert; normal speech and cognition; CN's grossly intact; strength grossly intact without focal deficit. BACK: There is very mild right-sided CVA tenderness to palpation, there is no left-sided CVA TTP. Current Patient Data Vital Signs Vital Signs Date Time Temp Pulse Resp B/P (MAP) Pulse Ox O2 Delivery O2 Flow Rate FiO2 09/10/19 10:55 99.3 82 18 96 Room Air Lab Results Laboratory Tests Test 09/10/19 10:57 09/10/19 11:23 White Blood Count 10.7 x10^3/uL Red Blood Count 4.65 x10^6/uL Hemoglobin 13.9 g/dL Hematocrit 41.7 % Mean Corpuscular Volume 90 fL Mean Corpuscular Hemoglobin 30 pg Mean Corpuscular Hemoglobin Concent 33 g/dL Red Cell Distribution Width 14.2 % Platelet Count 405 x10^3/uL Neutrophils (%) (Auto) 68 % Lymphocytes (%) (Auto) 24 % Monocytes (%) (Auto) 7 % Eosinophils (%) (Auto) 2 % Basophils (%) (Auto) 1 % Neutrophils # (Auto) 7.2 x10^3uL Lymphocytes # (Auto) 2.5 x10^3/uL Monocytes # (Auto) 0.7 x10^3/uL Eosinophils # (Auto) 0.2 x10^3/uL Basophils # (Auto) 0.1 x10^3/uL Sodium Level 142 mmol/L Potassium Level 3.8 mmol/L Chloride Level 105 mmol/L Carbon Dioxide Level 25 mmol/L Anion Gap 12 Blood Urea Nitrogen 9 mg/dL Creatinine 0.7 mg/dL Estimated GFR (Cockcroft-Gault) 90.5 BUN/Creatinine Ratio 13 Glucose Level 103 mg/dL Calcium Level 9.4 mg/dL Total Bilirubin 0.5 mg/dL Aspartate Amino Transf (AST/SGOT) 22 U/L Alanine Aminotransferase (ALT/SGPT) 37 U/L Alkaline Phosphatase 152 U/L Total Protein 7.6 g/dL Albumin 3.6 g/dL Albumin/Globulin Ratio 0.9 Lipase 86 U/L Urine Collection Type Unknown Urine Color Yellow Urine Clarity Hazy Urine pH 5.5 Urine Specific [place] 1.025 Urine Protein Neg Urine Glucose (UA) Neg mg/dL Urine Ketones (Stick) Neg mg/dL Urine Blood Neg Urine Nitrite Neg Urine Bilirubin Neg Urine Urobilinogen Dipstick 0.2 mg/dL Urine Leukocyte Esterase Neg Urine RBC Occ /HPF Urine WBC Occ /HPF Urine Squamous Epithelial Cells Mod /LPF Urine Bacteria 0 /HPF Urine Mucus Mod /LPF Urine Yeast Present /HPF Urine Test Negative Current Medications Medications (Trade) Dose Ordered Sig/Geovanny Route PRN Reason Start Time Stop Time Status Last Admin Dose Admin Sodium Chloride 1,000 ml @ 1,000 mls/hr Q1H IV 09/10/19 11:14 09/10/19 12:13 DC 09/10/19 11:14 Iohexol (Omnipaque 300 Mg/ml) 75 ml 1X ONCE IV 09/10/19 11:45 09/10/19 11:46 DC 09/10/19 11:43 Ondansetron HCl (Zofran) 4 mg 1X ONCE IVP 09/10/19 12:15 09/10/19 12:16 DC 09/10/19 12:08 EKG EKG [] Radiology/Procedures Radiology/Procedures PROCEDURE: CT ABD PELV W/ IV CONTRST ONLY Axial CT of the abdomen and pelvis were obtained after the administration of 70 cc Isovue 370. Coronal and sagittal reformats are also available. Exposure: One or more of the following individualized dose reduction techniques were utilized for this examination: 1. Automated exposure control 2. Adjustment of the mA and/or kV according to patient size 3. Use of iterative reconstruction technique Indication: Right-sided abdominal pain. Comparison: None. Findings: The heart is not enlarged. The lung bases are clear. Patient is status post cholecystectomy. There is a small cystic lesion in segment 4A of the liver, likely benign cyst or hemangioma. Spleen, adrenals, kidneys and pancreas are unremarkable in appearance. The stomach, small and large bowel are nondistended. No evidence of pathologic wall thickening. The appendix is visualized and is unremarkable in appearance. No radiologically significant retroperitoneal or mesenteric lymphadenopathy is identified. No free air or fluid. Abdominal aorta has a few focal areas of calcification. There is posterior fusion of L4-5. Bony structures are otherwise unremarkable in appearance. IMPRESSION: 1. Patient status post cholecystectomy. Also spinous process fusion of L4-5. Examination is otherwise unremarkable.[] Course & Med Decision Making Course & Med Decision Making Pertinent Labs and Imaging studies reviewed. (See chart for details) []Patient remains stable. I discussed test results, the need for close follow- up, and return precautions. Discussed the need for possible GI follow-up for further evaluation. Dragon Disclaimer Dragon Disclaimer This electronic medical record was generated, in whole or in part, using a voice recognition dictation system. Departure Departure: Impression: Primary Impression: Flank pain Additional Impression: Nausea & vomiting Disposition: 01 HOME, SELF-CARE Condition: STABLE Referrals: ALISHA BALLESTEROS MD Patient Instructions: Abdominal Pain, Flank Pain, Nausea and Vomiting Additional Instructions: Ibuprofen 400-600 mg every 6 hours may help improve your symptoms. Applying a heating pad to the affected area may help improve your symptoms. Scripts Ondansetron (ONDANSETRON ODT) 4 Mg Tab.rapdis 1 TAB PO PRN Q6-8HRS for N/V, #15 TAB Prov: REYNA SZYMANSKI MD 09/10/19 Problem Qualifiers REYNA SZYMANSKI MD Sep 10, 2019 11:26
[2019-09-10 11:33] LABS: ALBUMIN 3.6 g/dL (3.4-5.0); ALBUMIN/GLOBULIN RATIO 0.9 (1.0-1.7); CALCIUM 9.4 mg/dL (8.5-10.1); CREATININE 0.7 mg/dL (0.6-1.0); GFR 90.5; POTASSIUM 3.8 mmol/L (3.5-5.1); TOTAL BILIRUBIN 0.5 mg/dL (0.2-1.0); TOTAL PROTEIN 7.6 g/dL (6.4-8.2)
[2019-09-10] MEDS ORDERED: IOHEXOL 300 MG/ML 75 ML VIAL. IV ONE (11:45)
[2019-09-10 12:06] LABS: BACTERIA,URINE 0 /HPF (0-FEW); BILIRUBIN,URINE NEG (NEG); CLARITY,URINE HAZY; COLOR,URINE YELLOW; GLUCOSE,URINE NEG (NEG); NITRITE,URINE NEG (NEG); RBC,URINE OCC /HPF (0-2); SQUAMOUS EPITHELIAL CELL,UR MOD /LPF; UROBILINOGEN,URINE 0.2 mg/dL (0.2 mg/dL); WBC,URINE OCC /HPF (0-4)
[2019-09-10 12:07] LABS: U PREG PATIENT NEGATIVE (NEG); YEAST,URINE PRESENT /HPF
[2019-09-10] MEDS ORDERED: ONDANSETRON PF 4 MG/2 ML VIAL. IVP ONE (12:15)
--- NOTE | 2019-09-10 12:43 | RAD ---
Axial CT of the abdomen and pelvis were obtained after the administration of 70 cc Isovue 370. Coronal and sagittal reformats are also available. Exposure: One or more of the following individualized dose reduction techniques were utilized for this examination: 1. Automated exposure control 2. Adjustment of the mA and/or kV according to patient size 3. Use of iterative reconstruction technique Indication: Right-sided abdominal pain. Comparison: None. Findings: The heart is not enlarged. The lung bases are clear. Patient is status post cholecystectomy. There is a small cystic lesion in segment 4A of the liver, likely benign cyst or hemangioma. Spleen, adrenals, kidneys and pancreas are unremarkable in appearance. The stomach, small and large bowel are nondistended. No evidence of pathologic wall thickening. The appendix is visualized and is unremarkable in appearance. No radiologically significant retroperitoneal or mesenteric lymphadenopathy is identified. No free air or fluid. Abdominal aorta has a few focal areas of calcification. There is posterior fusion of L4-5. Bony structures are otherwise unremarkable in appearance. IMPRESSION: 1. Patient status post cholecystectomy. Also spinous process fusion of L4-5. Examination is otherwise unremarkable. Electronically signed by: Devin Luu MD (09/10/2019 12:40 PM) [facility]
[2019-09-10 12:45] VITALS: BP 128/70
[2019-09-10] MEDS ORDERED: ONDA4TAB12 PO (12:47)
[2019-09-10 13:43] LABS: % ATYL 5 % (0-0); % BANDS 1 % (0-9); % BASOS 1 % (0-3); % LYMPHS 15 % (24-48); % MONOS 8 % (0-10); % SEGS 70 % (35-66)
[2019-09-10 13:45] LABS: PLT ESTIMATE INCREASED (ADEQUATE)
== END 2019-09-10 13:00 | disposition home or self-care (01) ==
LOC: ER 10:46
DX: R10.31 Right lower quadrant pain (principal); R11.2 Nausea with vomiting, unspecified; F17.200 Nicotine dependence, unspecified, uncomplicated; Z87.442 Personal history of urinary calculi; Z87.440 Personal history of urinary (tract) infections; Z90.49 Acquired absence of other specified parts of digestive tract; Z98.890 Other specified postprocedural states; Z98.51 Tubal ligation status; Z88.8 Allergy status to other drugs, medicaments and biological substances; Z88.6 Allergy status to analgesic agent
CPT/HCPCS: 36415; 74177; 80053; 81001; 81025; 83690; 85007; 85025; 96361; 96374; 99285; J2405; Q9967; J7030

== ENCOUNTER 2019-09-11 16:04 | Emergency (ER) | payer SELFPAY ==
[~2019-09-11] VITALS: Ht 152.4 cm; Wt 47.2 kg
[~2019-09-11 16:04] MED LIST changes: +ONDA4TAB12 PO
[2019-09-11 16:08] VITALS: BP 109/62
[2019-09-11] MEDS ORDERED: IV NORMAL SALINE 1,000ML 1,000 ML IV SCH (16:13)
[2019-09-11] MEDS ORDERED: ASPIRIN 81 MG TAB.CHEW PO ONE (16:15)
--- NOTE | 2019-09-11 16:20 | PHYS DOC ---
Past History Past Medical History: Kidney Stones, UTI, Other Additional Past Medical Histor: BACK PROBLEMS Past Surgical History: Cholecystectomy, , Tubal ligation, Other Additional Past Surgical Histo: Left shoulder rotator cuff x 3, L-spine fusion, R eye prosthetic, Smoking: Less than 1pk/day Alcohol Use: Rarely Drug Use: None Adult General Chief Complaint Chief Complaint: CHEST PAIN HPI HPI Patient is a 43-year-old female, who is familiar to me from an ER visit yesterday, who presents to the emergency department via EMS. She states that since 3 AM this morning, she has had constant sharp and pressure chest pain, it radiates to her back intrascapular area. She is somewhat tearful, because she is fearful that her mother had heart problems in the past, and of a heart attack. She denies any significant shortness of breath, but states that palpation of her chest and back, as well as movement and deep breathing also worsen her symptoms. She denies any shortness of breath. She does admit to a cough, which exacerbates her chest pain, and admits that she has had similar chest discomfort in the past with a cough. She has not had any dizziness or lightheadedness, numbness, or focal weakness. Other than as stated above, there are no alleviating or exacerbating factors to her symptoms. Patient was apparently at [facility] this morning for chest pain as well, and was discharged at about noon today. Assuming a negative troponin, her HEART score would be a 2. Review of Systems Review of Systems Constitutional: Denies fever or chills [] Eyes: Denies change in visual acuity, redness, or eye pain [] HENT: Denies nasal congestion or sore throat [] Respiratory: Denies shortness of breath. Reports cough and pleuritic pain. [] Cardiovascular: No additional information not addressed in HPI [] GI: Denies abdominal pain, nausea, vomiting, bloody stools or diarrhea [] : Denies dysuria or hematuria [] Musculoskeletal: Denies back pain or joint pain [] Integument: Denies rash or skin lesions [] Neurologic: Denies headache, focal weakness or sensory changes [] Endocrine: Denies polyuria or polydipsia [] All other systems were reviewed and found to be within normal limits, except as documented in this note. Current Medications Current Medications Current Medications Medications (Trade) Dose Ordered Sig/Geovanny Start Time Stop Time Status Last Admin Dose Admin Aspirin (Children'S Aspirin) 324 mg 1X ONCE 09/11/19 16:15 09/11/19 16:17 DC Sodium Chloride 1,000 ml @ 1,000 mls/hr Q1H 09/11/19 16:13 09/11/19 17:12 Allergies Allergies Allergies Coded Allergies Type Severity Reaction Last Updated Verified cyclobenzaprine Allergy Unknown 09/11/19 Yes meloxicam Allergy Unknown 09/11/19 Yes naproxen Allergy Unknown 09/11/19 Yes tramadol Allergy Unknown 09/11/19 Yes Physical Exam Physical Exam PHYSICAL EXAM: CONSTITUTIONAL: Well developed, well nourished HEAD: normocephalic, atraumatic EENT: Prosthetic right eye, Conjunctivae normal color, sclerae non-icteric; moist mucous membranes. NECK: Supple, non-tender; no meningismus. LUNGS: Lungs CTA, breathing even and unlabored. Normal air movement. HEART: Regular rate and rhythm, no murmur CHEST: No deformity; there is tenderness to palpation of the anterior chest wall. This reproduces the patient's pain. ABDOMEN: The abdomen is soft, and non-tender, no masses or bruits. EXTREM: Normal ROM; no deformity, no calf tenderness. Normal pulses palpable in all extremities. There is no pedal edema. SKIN: No rash; no diaphoresis NEURO: Alert; normal speech and cognition; CN's grossly intact; strength grossly intact without focal deficit. BACK: No CVA TTP. There is tenderness to palpation to the left parascapular muscles of the thoracic spine, there is no midline bony tenderness to palpation of the thoracic or lumbar spine. PSYCHIATRIC: The patient appears to have a moderately anxious affect. EKG EKG [] Radiology/Procedures Radiology/Procedures [] Course & Med Decision Making Course & Med Decision Making 4:30 PM: I have requested records from [facility], and requested authorization from the patient. A few minutes after this, the patient informed the staff that she wishes to be discharged from this hospital, and will sign out AGAINST MEDICAL ADVICE. Although no testing, not even an EKG, has been performed, clinical suspicion that there is acute pathology causing the patient's pain is very low. I did review her [employer] history, and she does have a history of several opiate prescriptions from different providers scattered over the past year, although not particularly egregious amount. Dragon Disclaimer Dragon Disclaimer This electronic medical record was generated, in whole or in part, using a voice recognition dictation system. Departure Departure: Impression: Primary Impression: Chest pain Disposition: 07 AGAINST MEDICAL ADVICE Condition: STABLE Referrals: PCP,NO (PCP) Patient Instructions: Chest Pain (Nonspecific) REYNA SZYMANSKI MD Sep 11, 2019 16:20
== END 2019-09-11 16:49 | disposition left against medical advice (07) ==
LOC: ER 16:04
DX: R07.89 Other chest pain (principal); F17.200 Nicotine dependence, unspecified, uncomplicated; Z87.442 Personal history of urinary calculi; Z87.440 Personal history of urinary (tract) infections; Z88.8 Allergy status to other drugs, medicaments and biological substances; Z88.6 Allergy status to analgesic agent
CPT/HCPCS: 99283

== ENCOUNTER 2019-09-25 12:47 | Emergency (ER) | payer SELFPAY ==
[~2019-09-25] VITALS: Ht 152.4 cm; Wt 49.9 kg
[2019-09-25] MEDS ORDERED: ORPH-16 PO (13:18)
--- NOTE | 2019-09-25 13:19 | PHYS DOC ---
Past History Past Medical History: Kidney Stones, UTI, Other Additional Past Medical Histor: BACK PROBLEMS Past Surgical History: Cholecystectomy, Tubal ligation, Other Additional Past Surgical Histo: Left shoulder rotator cuff x 3, L-spine fusion, R eye prosthetic, Smoking: Less than 1pk/day Alcohol Use: Rarely Drug Use: None Adult General Chief Complaint Chief Complaint: SHOULDER INJURY HPI HPI Patient is a 43-year-old female presents complaining of right shoulder discomfort. At approximately 2:00 this morning patient tripped over some cats at home. No head injury. No loss of consciousness. Increased pain with movement. She is right-hand dominant. No new numbness or tingling. No relief with home pain measures. Pain is moderate to severe in intensity.[] Review of Systems Review of Systems Constitutional: Denies fever or chills [] Eyes: Denies change in visual acuity, redness, or eye pain [] HENT: Denies nasal congestion or sore throat [] Respiratory: Denies cough or shortness of breath [] Cardiovascular: No chest pain or palpitations[] GI: Denies abdominal pain, nausea, vomiting, bloody stools or diarrhea [] : Denies dysuria or hematuria [] Musculoskeletal: Denies back pain, see history of present illness[] Integument: Denies rash or skin lesions [] Neurologic: Denies headache, focal weakness or sensory changes [] Endocrine: Denies polyuria or polydipsia [] All other systems were reviewed and found to be within normal limits, except as documented in this note. Allergies Allergies Allergies Coded Allergies Type Severity Reaction Last Updated Verified cyclobenzaprine Allergy Unknown 09/25/19 Yes meloxicam Allergy Unknown 09/25/19 Yes naproxen Allergy Unknown 09/25/19 Yes tramadol Allergy Unknown 09/25/19 Yes Physical Exam Physical Exam Constitutional: Well developed, well nourished, no acute distress, non-toxic appearance. [] HENT: Normocephalic, atraumatic, bilateral external ears normal, oropharynx moist, no oral exudates, nose normal. [] Eyes: PERRLA, EOMI, conjunctiva normal, no discharge. [] Neck: Normal range of motion, no tenderness, supple, no stridor. [] Cardiovascular:Heart rate regular rhythm, no murmur [] Lungs & Thorax: Bilateral breath sounds clear to auscultation [] Abdomen: Not examined[] Skin: Warm, dry, no erythema, no rash. [] Back: No tenderness, no CVA tenderness. [] Extremities: Right shoulder has tenderness to palpation along the trapezius. Full range of motion of the right shoulder. No pain along the clavicle. There is no step-off or crepitus in the shoulder. A joint above and joined below were evaluated and were normal. She is distally neurovascularly intact. The other 3 extremities show: No tenderness, no cyanosis, no clubbing, ROM intact, no edema. [] Neurologic: Alert and oriented X 3, normal motor function, normal sensory function, no focal deficits noted. [] Psychologic: Affect normal, judgement normal, mood normal. [] Current Patient Data Vital Signs Vital Signs Date Time Temp Pulse Resp B/P (MAP) Pulse Ox O2 Delivery O2 Flow Rate FiO2 09/25/19 12:56 98.4 86 18 100 Room Air EKG EKG [] Radiology/Procedures Radiology/Procedures [] Course & Med Decision Making Course & Med Decision Making Pertinent Labs and Imaging studies reviewed. (See chart for details) Medical decision making: There is no evidence of a fracture or dislocation based on physical exam. No evidence of neurologic or vascular compromise. ED course: Patient arrived, was placed in bed, and tolerated exam well. Findings and plan were discussed with the patient voiced understanding. All questions were answered. She was discharged in improved condition.[] Dragon Disclaimer Dragon Disclaimer This electronic medical record was generated, in whole or in part, using a voice recognition dictation system. Departure Departure: Impression: Primary Impression: Trapezius strain Disposition: 01 HOME, SELF-CARE Condition: IMPROVED Referrals: PCP,NO (PCP) Patient Instructions: Muscle Strain Additional Instructions: Follow-up with your regular doctor in 2 days. If you do not have a regular doctor list of local clinics will be provided. Take the medication as prescribed. Return to the ER if worsening pain, weakness, or any other concerns. Scripts Orphenadrine Citrate (ORPHENADRINE CITRATE) 100 Mg Tablet.er 100 MG PO BID for shoulder pain, #20 TAB.SR Prov: WANDY PATEL 09/25/19 Problem Qualifiers Primary Impression: Trapezius strain Encounter type: initial encounter Laterality: right Qualified Codes: S46.811A - Strain of other muscles, fascia and tendons at shoulder and upper arm level, right arm, initial encounter WANDY PATEL DO Sep 25, 2019 13:19
[2019-09-25 13:22] VITALS: BP 121/75
== END 2019-09-25 13:22 | disposition home or self-care (01) ==
LOC: ER 12:47
DX: S46.811A Strain of other muscles, fascia and tendons at shoulder and upper arm level, right arm, initial encounter (principal); F17.200 Nicotine dependence, unspecified, uncomplicated; Z87.442 Personal history of urinary calculi; Z87.440 Personal history of urinary (tract) infections; Z88.6 Allergy status to analgesic agent; Z88.8 Allergy status to other drugs, medicaments and biological substances; W18.49XA Other slipping, tripping and stumbling without falling, initial encounter; Y93.89 Activity, other specified; Y92.098 Other place in other non-institutional residence as the place of occurrence of the external cause; Y99.8 Other external cause status
CPT/HCPCS: 99283

== ENCOUNTER 2019-10-26 11:26 | Emergency (ER) | payer SELFPAY ==
[2019-10-26 11:38] VITALS: BP 130/80
[2019-10-26] MEDS ORDERED: IV NORMAL SALINE 1,000ML 1,000 ML IV SCH (11:48)
[2019-10-26] MEDS ORDERED: ONDANSETRON PF 4 MG/2 ML VIAL. IVP ONE (12:00)
[2019-10-26 12:17] LABS: BACTERIA,URINE MANY /HPF (0-FEW); BILIRUBIN,URINE NEG (NEG); CLARITY,URINE TURBID; COLOR,URINE YELLOW; GLUCOSE,URINE NEG (NEG); NITRITE,URINE NEG (NEG); RBC,URINE >40 /HPF (0-2); UROBILINOGEN,URINE 0.2 mg/dL (0.2 mg/dL); WBC,URINE 20-40 /HPF (0-4)
[2019-10-26 12:18] LABS: SQUAMOUS EPITHELIAL CELL,UR MOD /LPF
[2019-10-26 12:20] LABS: BASO # 0.1 x10^3/uL (0.0-0.2); BASO % 1 % (0-3); EOS # 0.1 x10^3/uL (0.0-0.7); EOS % 1 % (0-3); HEMATOCRIT 40.8 % (36.0-47.0); HEMOGLOBIN 13.6 g/dL (12.0-15.5); LYMPH # 1.8 x10^3/uL (1.0-4.8); LYMPH % 20 % (24-48); MEAN CORPUSCULAR HEMOGLOBIN 29 pg (25-35); MEAN CORPUSCULAR HGB CONC 33 g/dL (31-37); MEAN CORPUSCULAR VOLUME 88 fL (79-100); MONO # 0.5 x10^3/uL (0.0-1.1); MONO % 5 % (0-9); NEUT # 6.7 x10^3uL (1.8-7.7); NEUT % 73 % (31-73); PLATELET COUNT 385 x10^3/uL (140-400); RED BLOOD COUNT 4.63 x10^6/uL (3.50-5.40); RED CELL DISTRIBUTION WIDTH 14.2 % (11.5-14.5); WHITE BLOOD COUNT 9.2 x10^3/uL (4.0-11.0)
[2019-10-26 12:30] LABS: CREATININE 0.7 mg/dL (0.6-1.0); GFR 90.5; POTASSIUM 4.2 mmol/L (3.5-5.1)
[2019-10-26 12:33] LABS: ALBUMIN 3.5 g/dL (3.4-5.0); ALBUMIN/GLOBULIN RATIO 0.9 (1.0-1.7); TOTAL BILIRUBIN 0.4 mg/dL (0.2-1.0); TOTAL PROTEIN 7.4 g/dL (6.4-8.2)
[2019-10-26] MEDS ORDERED: IOHEXOL 300 MG/ML 75 ML VIAL. IV ONE (13:15)
--- NOTE | 2019-10-26 13:32 | RAD ---
CT scan of the abdomen and pelvis with contrast 10/26/2019 CLINICAL HISTORY: Right lower quadrant abdominal pain for 2 to 3 days. TECHNIQUE: After the intravenous administration of 75 cc of Omnipaque 300 only, contiguous, 5 mm axial sections were obtained through the abdomen and pelvis. One or more of the following individualized dose reduction techniques were utilized for this study: 1. Automated exposure control. 2. Adjustment of the mA and/or kV according to patient size. 3. Use of iterative reconstruction technique. FINDINGS: Images through the lung bases demonstrate minimal dependent subsegmental atelectasis bilaterally. A 5 mm low-attenuation lesion is seen involving the left lobe of the liver. This likely represents a hepatic cyst. The spleen, pancreas, adrenal glands and kidneys are within normal limits. The abdominal aorta tapers normally. Scattered atherosclerotic calcification of the abdominal aorta is seen. The abdominal aorta tapers normally. Surgical clips are seen within the gallbladder fossa consistent with a cholecystectomy. Air and stool are seen throughout the colon. The appendix is well-visualized and is within normal limits. No free fluid or free air is seen within the abdomen. Images through the pelvis demonstrate the urinary bladder distended with urine. Calcifications are seen within the pelvis consistent with phleboliths. No adnexal mass is seen. No free fluid is noted. Minimal S-shaped curvature of the thoracolumbar spine is seen. A interspinous process stabilizing device is seen at L4-5. Degenerative changes are seen involving the lower thoracic and scattered throughout the lumbar disc spaces. IMPRESSION: No acute abnormality is seen. Electronically signed by: Aguilar Yadav MD (10/26/2019 1:29 PM) [facility]
[2019-10-26] MEDS ORDERED: DICY20TA3 PO (13:45)
[2019-10-26] MEDS ORDERED: ONDA4TAB12 PO (13:45)
--- NOTE | 2019-10-26 13:45 | PHYS DOC ---
Past History Past Medical History: UTI, Other Additional Past Medical Histor: kidney stone Past Surgical History: Cholecystectomy, Tubal ligation Additional Past Surgical Histo: Left shoulder rotator cuff x 3, L-spine fusion, R eye prosthetic, Smoking: Less than 1pk/day Alcohol Use: None Drug Use: None Adult General Chief Complaint Chief Complaint: ABDOMINAL PAIN HPI HPI Patient is a 43-year-old female who presents with complaint of right lower quadrant abdominal pain that started on Tomas. Patient states that she has had some nausea and vomiting since onset of symptoms. She states that pain is progressively worsening over time and she rates pain at a 7 to an 8 out of 10. Patient states the pain is worsened with movement. She also indicates that she has decreased appetite since onset of pain. She denies any diarrhea. She also denies any fever. Patient denies any vaginal discharge.[] Review of Systems Review of Systems Constitutional: Denies fever or chills [] Respiratory: Denies cough or shortness of breath [] Cardiovascular: No additional information not addressed in HPI [] GI: Positive abdominal pain with nausea and vomiting. Denies diarrhea [] Integument: Denies rash or skin lesions [] Neurologic: Denies headache, focal weakness or sensory changes [] All other systems were reviewed and found to be within normal limits, except as documented in this note. Current Medications Current Medications Current Medications Medications (Trade) Dose Ordered Sig/Geovanny Start Time Stop Time Status Last Admin Dose Admin Fentanyl Citrate (Fentanyl 2ml Vial) 25 mcg PRN Q15MIN PRN 10/26/19 12:00 10/27/19 11:59 10/26/19 12:03 25 MCG Iohexol (Omnipaque 300 Mg/ml) 75 ml 1X ONCE 10/26/19 13:15 10/26/19 13:16 DC Ondansetron HCl (Zofran) 4 mg 1X ONCE 10/26/19 12:00 10/26/19 12:01 DC 10/26/19 12:03 4 MG Sodium Chloride 1,000 ml @ 1,000 mls/hr Q1H 10/26/19 11:48 10/26/19 12:47 DC 10/26/19 12:01 1,000 MLS/HR Allergies Allergies Allergies Coded Allergies Type Severity Reaction Last Updated Verified cyclobenzaprine Allergy Unknown 09/25/19 Yes meloxicam Allergy Unknown 09/25/19 Yes naproxen Allergy Unknown 09/25/19 Yes tramadol Allergy Unknown 09/25/19 Yes Physical Exam Physical Exam Constitutional: Well developed, well nourished, no acute distress, non-toxic appearance. [] HENT: Normocephalic, atraumatic, bilateral external ears normal, oropharynx moist, no oral exudates, nose normal. [] Eyes: PERRLA, EOMI, conjunctiva normal, no discharge. [] Neck: Normal range of motion, no tenderness, supple, no stridor. [] Cardiovascular:Heart rate regular rhythm, no murmur [] Lungs & Thorax: Bilateral breath sounds clear to auscultation [] Abdomen: Bowel sounds normal, soft, with right lower quadrant tenderness. [] Skin: Warm, dry, no erythema, no rash. [] Extremities: No tenderness, no cyanosis, no clubbing, ROM intact, no edema. [] Neurologic: Alert and oriented X 3, no focal deficits noted. [] Current Patient Data Vital Signs Vital Signs Date Time Temp Pulse Resp B/P (MAP) Pulse Ox O2 Delivery O2 Flow Rate FiO2 10/26/19 11:38 98.4 78 18 94 Room Air Lab Results Laboratory Tests Test 10/26/19 11:54 10/26/19 12:04 Urine Collection Type Unknown Urine Color Yellow Urine Clarity Turbid Urine pH 5.5 Urine Specific [place] 1.020 Urine Protein Neg (NEG-TRACE) Urine Glucose (UA) Neg mg/dL (NEG) Urine Ketones (Stick) Neg mg/dL (NEG) Urine Blood Large (NEG) Urine Nitrite Neg (NEG) Urine Bilirubin Neg (NEG) Urine Urobilinogen Dipstick 0.2 mg/dL (0.2 mg/dL) Urine Leukocyte Esterase Small (NEG) Urine RBC >40 /HPF (0-2) Urine WBC 20-40 /HPF (0-4) Urine Squamous Epithelial Cells Mod /LPF Urine Bacteria Many /HPF (0-FEW) Urine Mucus Mod /LPF White Blood Count 9.2 x10^3/uL (4.0-11.0) Red Blood Count 4.63 x10^6/uL (3.50-5.40) Hemoglobin 13.6 g/dL (12.0-15.5) Hematocrit 40.8 % (36.0-47.0) Mean Corpuscular Volume 88 fL (79-100) Mean Corpuscular Hemoglobin 29 pg (25-35) Mean Corpuscular Hemoglobin Concent 33 g/dL (31-37) Red Cell Distribution Width 14.2 % (11.5-14.5) Platelet Count 385 x10^3/uL (140-400) Neutrophils (%) (Auto) 73 % (31-73) Lymphocytes (%) (Auto) 20 % (24-48) L Monocytes (%) (Auto) 5 % (0-9) Eosinophils (%) (Auto) 1 % (0-3) Basophils (%) (Auto) 1 % (0-3) Neutrophils # (Auto) 6.7 x10^3uL (1.8-7.7) Lymphocytes # (Auto) 1.8 x10^3/uL (1.0-4.8) Monocytes # (Auto) 0.5 x10^3/uL (0.0-1.1) Eosinophils # (Auto) 0.1 x10^3/uL (0.0-0.7) Basophils # (Auto) 0.1 x10^3/uL (0.0-0.2) Sodium Level 141 mmol/L (136-145) Potassium Level 4.2 mmol/L (3.5-5.1) Chloride Level 105 mmol/L (98-107) Carbon Dioxide Level 26 mmol/L (21-32) Anion Gap 10 (6-14) Blood Urea Nitrogen 9 mg/dL (7-20) Creatinine 0.7 mg/dL (0.6-1.0) Estimated GFR (Cockcroft-Gault) 90.5 BUN/Creatinine Ratio 13 (6-20) Glucose Level 94 mg/dL (70-99) Calcium Level 9.0 mg/dL (8.5-10.1) Total Bilirubin 0.4 mg/dL (0.2-1.0) Aspartate Amino Transferase (AST) 19 U/L (15-37) Alanine Aminotransferase (ALT) 29 U/L (14-59) Alkaline Phosphatase 144 U/L (46-116) H Total Protein 7.4 g/dL (6.4-8.2) Albumin 3.5 g/dL (3.4-5.0) Albumin/Globulin Ratio 0.9 (1.0-1.7) L Lipase 65 U/L (73-393) L EKG EKG [] Radiology/Procedures Radiology/Procedures [] Impressions: PROCEDURE: CT ABD PELV W/ IV CONTRST ONLY CT scan of the abdomen and pelvis with contrast 10/26/2019 CLINICAL HISTORY: Right lower quadrant abdominal pain for 2 to 3 days. TECHNIQUE: After the intravenous administration of 75 cc of Omnipaque 300 only, contiguous, 5 mm axial sections were obtained through the abdomen and pelvis. One or more of the following individualized dose reduction techniques were utilized for this study: 1. Automated exposure control. 2. Adjustment of the mA and/or kV according to patient size. 3. Use of iterative reconstruction technique. FINDINGS: Images through the lung bases demonstrate minimal dependent subsegmental atelectasis bilaterally. A 5 mm low-attenuation lesion is seen involving the left lobe of the liver. This likely represents a hepatic cyst. The spleen, pancreas, adrenal glands and kidneys are within normal limits. The abdominal aorta tapers normally. Scattered atherosclerotic calcification of the abdominal aorta is seen. The abdominal aorta tapers normally. Surgical clips are seen within the gallbladder fossa consistent with a cholecystectomy. Air and stool are seen throughout the colon. The appendix is well-visualized and is within normal limits. No free fluid or free air is seen within the abdomen. Images through the pelvis demonstrate the urinary bladder distended with urine. Calcifications are seen within the pelvis consistent with phleboliths. No adnexal mass is seen. No free fluid is noted. Minimal S-shaped curvature of the thoracolumbar spine is seen. A interspinous process stabilizing device is seen at L4-5. Degenerative changes are seen involving the lower thoracic and scattered throughout the lumbar disc spaces. IMPRESSION: No acute abnormality is seen. Electronically signed by: Aguilar Yadav MD (10/26/2019 1:29 PM) [facility] Course & Med Decision Making Course & Med Decision Making Pertinent Labs and Imaging studies reviewed. (See chart for details) [] Dragon Disclaimer Dragon Disclaimer This electronic medical record was generated, in whole or in part, using a voice recognition dictation system. Departure Departure: Impression: Primary Impression: Right lower quadrant abdominal pain Disposition: 01 HOME, SELF-CARE Condition: STABLE Referrals: PCP,NO (PCP) Patient Instructions: Abdominal Pain Scripts Ondansetron (ONDANSETRON ODT) 4 Mg Tab.rapdis 1 TAB PO PRN Q6-8HRS PRN for NAUSEA, #12 TAB Prov: JESS JESSICA Jr. DO 10/26/19 Dicyclomine Hcl (DICYCLOMINE HCL) 20 Mg Tablet 1 TAB PO TID PRN for abdominal pain, #30 TAB Prov: JESS JESSICA Jr. DO 10/26/19 JESS JESSICA Jr. DO Oct 26, 2019 13:45
== END 2019-10-26 13:53 | disposition home or self-care (01) ==
LOC: ER 11:26
DX: R10.31 Right lower quadrant pain (principal); R11.2 Nausea with vomiting, unspecified; F17.200 Nicotine dependence, unspecified, uncomplicated; Z87.440 Personal history of urinary (tract) infections; Z87.442 Personal history of urinary calculi; Z90.49 Acquired absence of other specified parts of digestive tract; Z98.51 Tubal ligation status; Z88.8 Allergy status to other drugs, medicaments and biological substances; Z88.6 Allergy status to analgesic agent
CPT/HCPCS: 36415; 74177; 80053; 81001; 83690; 85025; 87086; 96361; 96374; 96375; 99285; J2405; J3010; J7030

== ENCOUNTER 2019-12-12 13:35 | Emergency (ER) | payer SELFPAY ==
[~2019-12-12] VITALS: Ht 152.4 cm; Wt 49.9 kg
[2019-12-12 13:35] VITALS: BP 105/52
[~2019-12-12 13:35] MED LIST changes: +DICY20TA3 PO
--- NOTE | 2019-12-12 14:21 | PHYS DOC ---
Past History Past Medical History: UTI, Other Additional Past Medical Histor: kidney stone Past Surgical History: Cholecystectomy, Tubal ligation Additional Past Surgical Histo: Left shoulder rotator cuff x 3, L-spine fusion, R eye prosthetic, Smoking: Cigarettes, Less than 1pk/day Alcohol Use: None Drug Use: None Adult General Chief Complaint Chief Complaint: WRIST PAIN HPI HPI 44-year-old female presents with report of right wrist pain primarily to radial aspect which is worse with range of motion about the thumb. Patient reports has had pain there before. Denies known trauma. Reports history of prior fracture to same hand. Denies fever or chills. Denies swelling. Denies numbness or tingling. Review of Systems Review of Systems Constitutional: Denies fever or chills Eyes: Denies redness or eye pain HENT: Denies nasal congestion or sore throat Respiratory: Denies cough or shortness of breath Cardiovascular: Denies chest pain or palpitations GI: Denies abdominal pain, nausea, or vomiting : Denies dysuria or hematuria Musculoskeletal: Reports right wrist pain Integument: Denies rash or skin lesions Neurologic: Denies headache, focal weakness or sensory changes Complete systems were reviewed and found to be within normal limits, except as documented in this note. Allergies Allergies Allergies Coded Allergies Type Severity Reaction Last Updated Verified cyclobenzaprine Allergy Unknown 09/25/19 Yes meloxicam Allergy Unknown 09/25/19 Yes naproxen Allergy Unknown 09/25/19 Yes tramadol Allergy Unknown 09/25/19 Yes Physical Exam Physical Exam Constitutional: Well developed, well nourished, no acute distress, non-toxic appearance HENT: Normocephalic, atraumatic, oropharynx moist Eyes: Conjunctiva normal, no discharge Neck: Normal range of motion, no tenderness, supple Cardiovascular: Heart rate normal, regular rhythm Lungs & Thorax: Bilateral breath sounds clear to auscultation, no wheezing Skin: Warm, dry, no erythema, no rash Extremities: Positive Lyla test, no deformity, right wrist with ROM intac t, no edema Neurologic: Alert and oriented X 3, no focal deficits noted Psychologic: Affect normal, judgment normal EKG EKG [] Radiology/Procedures Radiology/Procedures [] Course & Med Decision Making Course & Med Decision Making Patient presents with HPI and physical exam concerning for de Quervain's tenosynovitis. Patient advised with history of prior fracture to hand may require x-ray imaging. Patient advised would prescribe steroids to help with the inflammatory process and would provide wrist splint. [facility] report obtained. Last controlled substance filled on 12/08/19 for 12 tabs. Patient had requested pain medication. Patient self-pay insurance. Registration discussed need for co-pay for continuation of care past [facility] per [facility] guidelines. Patient elected to leave against medical advise. Patient advised to follow closely with her PCP/urgent care/free clinics/orthopedic surgeon. Dragon Disclaimer Dragon Disclaimer This electronic medical record was generated, in whole or in part, using a voice recognition dictation system. Departure Departure: Impression: Primary Impression: Right wrist pain Disposition: AGAINST MEDICAL ADVICE Condition: STABLE Referrals: PCP,SANTANA (PCP) ANDIE RUTH MD Patient Instructions: De Queral's Tenosynovitis-SportsMed, Discharge Against Medical Advice ALISHA FRANKLIN DO Dec 12, 2019 14:21
== END 2019-12-12 14:25 | disposition left against medical advice (07) ==
LOC: ER 13:35
DX: M25.531 Pain in right wrist (principal); F17.210 Nicotine dependence, cigarettes, uncomplicated; Z87.440 Personal history of urinary (tract) infections; Z87.442 Personal history of urinary calculi; Z88.6 Allergy status to analgesic agent; Z88.8 Allergy status to other drugs, medicaments and biological substances
CPT/HCPCS: 99281

== ENCOUNTER 2020-01-14 11:46 | Emergency (ER) | payer SELFPAY ==
[~2020-01-14] VITALS: Ht 152.4 cm; Wt 47.4 kg
[2020-01-14 11:46] VITALS: BP 112/43
[2020-01-14 12:21] LABS: BASO # 0.1 x10^3/uL (0.0-0.2); BASO % 1 % (0-3); EOS # 0.2 x10^3/uL (0.0-0.7); EOS % 2 % (0-3); HEMATOCRIT 41.3 % (36.0-47.0); HEMOGLOBIN 13.7 g/dL (12.0-15.5); LYMPH # 2.5 x10^3/uL (1.0-4.8); LYMPH % 26 % (24-48); MEAN CORPUSCULAR HEMOGLOBIN 30 pg (25-35); MEAN CORPUSCULAR HGB CONC 33 g/dL (31-37); MEAN CORPUSCULAR VOLUME 89 fL (79-100); MONO # 0.6 x10^3/uL (0.0-1.1); MONO % 6 % (0-9); NEUT # 6.3 x10^3uL (1.8-7.7); NEUT % 66 % (31-73); PLATELET COUNT 443 x10^3/uL (140-400); RED BLOOD COUNT 4.64 x10^6/uL (3.50-5.40); RED CELL DISTRIBUTION WIDTH 16.2 % (11.5-14.5); WHITE BLOOD COUNT 9.7 x10^3/uL (4.0-11.0)
[2020-01-14 12:31] LABS: CALCIUM 9.4 mg/dL (8.5-10.1); CREATININE 0.8 mg/dL (0.6-1.0); GFR 77.2; POTASSIUM 3.8 mmol/L (3.5-5.1)
[2020-01-14 12:38] LABS: ALBUMIN 3.8 g/dL (3.4-5.0); ALBUMIN/GLOBULIN RATIO 1.1 (1.0-1.7); TOTAL BILIRUBIN 0.4 mg/dL (0.2-1.0); TOTAL PROTEIN 7.4 g/dL (6.4-8.2)
--- NOTE | 2020-01-14 12:46 | PHYS DOC ---
Past History Past Medical History: Kidney Stones, UTI, Other Additional Past Medical Histor: low back pain Past Surgical History: Cholecystectomy, Tubal ligation Additional Past Surgical Histo: Left shoulder rotator cuff x 3, L-spine fusion, R eye prosthetic, Smoking: Cigarettes, Less than 1pk/day Alcohol Use: Occasionally Drug Use: None Adult General Chief Complaint Chief Complaint: FLANK PAIN HPI HPI Patient is a 44 year old female who presents with complaint of right-sided abdominal and flank pain. Patient states her symptoms started yesterday evening and have been persistent throughout the night into this morning. States that she has history of kidney stones and thinks that she may have another kidney stone causing her symptoms currently. Has had nausea but no vomiting. Denies fever, shortness of breath, cough, or diarrhea. Has not taken anything today for her symptoms. States that she noted what she thought was hematuria yesterday. Denies any dysuria or increased urinary frequency today. Review of Systems Review of Systems Constitutional: Denies fever or chills [] Eyes: Denies change in visual acuity, redness, or eye pain [] HENT: Denies nasal congestion or sore throat [] Respiratory: Denies cough or shortness of breath [] Cardiovascular: Denies chest pain or edema [] GI: Abdominal pain, right flank pain, nausea, denies vomiting, bloody stools or diarrhea [] : Denies dysuria or hematuria [] Musculoskeletal: Denies back pain or joint pain [] Integument: Denies rash or skin lesions [] Neurologic: Denies headache, focal weakness or sensory changes [] All other systems were reviewed and found to be within normal limits, except as documented in this note. Current Medications Current Medications Current Medications Medications (Trade) Dose Ordered Sig/Geovanny Start Time Stop Time Status Last Admin Dose Admin Fentanyl Citrate (Fentanyl 2ml Vial) 50 mcg 1X ONCE 01/14/20 12:15 01/14/20 12:16 DC Ondansetron HCl (Zofran) 4 mg 1X ONCE 01/14/20 12:15 01/14/20 12:16 DC Sodium Chloride 1,000 ml @ 1,000 mls/hr Q1H 01/14/20 12:07 01/14/20 13:06 Allergies Allergies Allergies Coded Allergies Type Severity Reaction Last Updated Verified cyclobenzaprine Allergy Unknown 09/25/19 Yes meloxicam Allergy Unknown 09/25/19 Yes naproxen Allergy Unknown 09/25/19 Yes tramadol Allergy Unknown 09/25/19 Yes Physical Exam Physical Exam Constitutional: Alert, afebrile, appears him mild to moderate discomfort. [] HENT: Normocephalic, atraumatic, bilateral external ears normal, oropharynx moist, no oral exudates, nose normal. [] Eyes: PERRLA, EOMI, conjunctiva normal, no discharge. [] Neck: Normal range of motion, no tenderness, supple, no stridor. [] Cardiovascular:Heart rate regular rhythm, no murmur [] Lungs & Thorax: Bilateral breath sounds clear to auscultation [] Abdomen: Bowel sounds normal, soft, suprapubic and right lower quadrant tenderness to palpation, no masses, no pulsatile masses. [] Skin: Warm, dry, no erythema, no rash. [] Back: No midline or CVA tenderness, right lower lumbar paraspinous muscle tenderness to palpation. [] Extremities: No tenderness, no cyanosis, no clubbing, ROM intact, no edema. [] Neurologic: Alert and oriented X 3, normal motor function, normal sensory function, no focal deficits noted. [] Current Patient Data Vital Signs Vital Signs Date Time Temp Pulse Resp B/P (MAP) Pulse Ox O2 Delivery O2 Flow Rate FiO2 01/14/20 11:46 97.9 71 18 112/43 (66) 98 Room Air Lab Results Laboratory Tests Test 01/14/20 12:00 White Blood Count 9.7 x10^3/uL (4.0-11.0) Red Blood Count 4.64 x10^6/uL (3.50-5.40) Hemoglobin 13.7 g/dL (12.0-15.5) Hematocrit 41.3 % (36.0-47.0) Mean Corpuscular Volume 89 fL (79-100) Mean Corpuscular Hemoglobin 30 pg (25-35) Mean Corpuscular Hemoglobin Concent 33 g/dL (31-37) Red Cell Distribution Width 16.2 % (11.5-14.5) H Platelet Count 443 x10^3/uL (140-400) H Neutrophils (%) (Auto) 66 % (31-73) Lymphocytes (%) (Auto) 26 % (24-48) Monocytes (%) (Auto) 6 % (0-9) Eosinophils (%) (Auto) 2 % (0-3) Basophils (%) (Auto) 1 % (0-3) Neutrophils # (Auto) 6.3 x10^3uL (1.8-7.7) Lymphocytes # (Auto) 2.5 x10^3/uL (1.0-4.8) Monocytes # (Auto) 0.6 x10^3/uL (0.0-1.1) Eosinophils # (Auto) 0.2 x10^3/uL (0.0-0.7) Basophils # (Auto) 0.1 x10^3/uL (0.0-0.2) Sodium Level 139 mmol/L (136-145) Potassium Level 3.8 mmol/L (3.5-5.1) Chloride Level 103 mmol/L (98-107) Carbon Dioxide Level 26 mmol/L (21-32) Anion Gap 10 (6-14) Blood Urea Nitrogen 7 mg/dL (7-20) Creatinine 0.8 mg/dL (0.6-1.0) Estimated GFR (Cockcroft-Gault) 77.2 BUN/Creatinine Ratio 9 (6-20) Glucose Level 102 mg/dL (70-99) H Calcium Level 9.4 mg/dL (8.5-10.1) Total Bilirubin 0.4 mg/dL (0.2-1.0) Aspartate Amino Transferase (AST) 33 U/L (15-37) Alanine Aminotransferase (ALT) 59 U/L (14-59) Alkaline Phosphatase 198 U/L (46-116) H Total Protein 7.4 g/dL (6.4-8.2) Albumin 3.8 g/dL (3.4-5.0) Albumin/Globulin Ratio 1.1 (1.0-1.7) Lipase 103 U/L (73-393) EKG EKG Not performed [] Radiology/Procedures Radiology/Procedures CT of the abdomen and pelvis without IV contrast interpreted by Sushant Pearles MD, radiologist: No renal calculi or hydronephrosis noted. Normal-appearing appendix. Multilevel degenerative disc disease and central stenosis most notab le at L4-L5 [] Course & Med Decision Making Course & Med Decision Making Pertinent Labs and Imaging studies reviewed. (See chart for details) CT imaging negative for renal calculus or appendicitis. Treated with fentanyl, Zofran, and IV fluids. Suspect acute exacerbation of low back pain. Lower abdominal symptoms may be related to source of back pain complaint. Prescribed small course of hydrocodone for outpatient treatment with recommended follow-up in 2 days with primary doctor for reevaluation. Advised return to the emergency department for any worsening symptoms. Patient voiced understanding and agreement with treatment plan. [] Dragon Disclaimer Dragon Disclaimer This electronic medical record was generated, in whole or in part, using a voice recognition dictation system. Departure Departure: Impression: Primary Impression: Acute exacerbation of chronic low back pain Additional Impression: Abdominal pain Disposition: HOME, SELF-CARE Condition: IMPROVED Referrals: PCP,SANTANA (PCP) Patient Instructions: Abdominal Pain (Nonspecific), Back Pain, Adult Additional Instructions: Follow-up with your primary doctor in the next 2 days for reevaluation. Return to the emergency department for any worsening symptoms. Scripts Hydrocodone Bit/Acetaminophen (NORCO 5-325 TABLET) 1 Each Tablet 1 TAB PO Q4-6HRS PRN for PAIN, #15 TAB Prov: ELIGIO STAUFFER MD 01/14/20 Problem Qualifiers Additional Impression: Abdominal pain Abdominal location: lower abdomen, unspecified Qualified Codes: R10.30 - Lower abdominal pain, unspecified ELIGIO STAUFFER MD Jan 14, 2020 12:46
[2020-01-14 13:02] LABS: BACTERIA,URINE 0 /HPF (0-FEW); BILIRUBIN,URINE NEG (NEG); CLARITY,URINE CLEAR; COLOR,URINE STRAW; GLUCOSE,URINE NEG (NEG); NITRITE,URINE NEG (NEG); RBC,URINE 0 /HPF (0-2); SQUAMOUS EPITHELIAL CELL,UR MOD /LPF; UROBILINOGEN,URINE 0.2 mg/dL (0.2 mg/dL); WBC,URINE OCC /HPF (0-4)
[2020-01-14] MEDS: ONDANSETRON PF 4 MG/2 ML VIAL. IVP ONE (13:10)
[2020-01-14] MEDS: IV NORMAL SALINE 1,000ML 1,000 ML IV SCH (13:10)
[2020-01-14] MEDS ORDERED: HYDR-3165 PO (13:12)
--- NOTE | 2020-01-14 15:10 | RAD ---
CT abdomen and pelvis without contrast History: Right abdomen pain, renal calculi, Technique: Computed tomographic images of abdomen and pelvis were performed. No IV contrast administered: CC PQRS Compliance Statement: One or more of the following individualized dose reduction techniques were utilized for this examination: 1. Automated exposure control 2. Adjustment of the mA and/or kV according to patient size 3. Use of iterative reconstruction technique Comparison: October 26, 2019 FINDINGS: Pleural-based tiny nodules seen along the pleural surface of the medial inferior aspect right middle lobe image #10 unchanged. Liver appears stable considering differences in technique. Gallbladder surgically absent Adrenal glands unremarkable Pancreas unremarkable Spleen unremarkable Left kidney appears dominant. No renal calculi. No hydronephrosis. Atherosclerotic calcific disease is noted. Bilateral fallopian tube clips are noted. The ovaries and uterus otherwise appears unremarkable. Bladder unremarkable. Normal-appearing appendix is noted. Posterior spinal process vertebral flecks type hardware device is seen at L4-5. There is a prominent L4-5 bulging disc that causes moderate central stenosis. Milder bulging discs at L2-3 and L5-S1 causing mild or central stenosis. And there is probably even milder disc disease seen at other levels in the visualized thoracolumbar spine. IMPRESSION: No renal calculi or hydronephrosis noted. Normal-appearing appendix Multilevel degenerative disc disease and central stenosis most notable at L4-5 Electronically signed by: Sushant Perales MD (01/14/2020 12:35 PM) [id number]
== END 2020-01-14 14:05 | disposition home or self-care (01) ==
LOC: ER 11:46
DX: G89.29 Other chronic pain (principal); M54.5 Low back pain; R10.31 Right lower quadrant pain; F17.210 Nicotine dependence, cigarettes, uncomplicated; Z87.442 Personal history of urinary calculi; Z87.440 Personal history of urinary (tract) infections; Z90.49 Acquired absence of other specified parts of digestive tract; Z98.51 Tubal ligation status; Z88.6 Allergy status to analgesic agent; Z88.8 Allergy status to other drugs, medicaments and biological substances
CPT/HCPCS: 36415; 74176; 80053; 81001; 83690; 85025; 87086; 96374; 96375; 99284; J2405; J3010; J7030

== ENCOUNTER 2020-01-19 15:38 | Emergency (ER) | payer SELFPAY ==
[~2020-01-19] VITALS: Ht 152.4 cm; Wt 47.4 kg
[2020-01-19] MEDS ORDERED: ALPR0.5T6 PO ×2 (15:58→16:00)
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
[2020-01-19 16:08] VITALS: BP 119/65
--- NOTE | 2020-01-19 16:48 | EKG ---
[address] [address] Test Date: 2020-01-19 Test Time: 15:44:05 Pat Name: SIMON AZAR Department: Room: Gender: F Boardmarker: : 1975 Requested By: LIVIER LINTON Order Number: [id number] Reading MD: William Petty Measurements Intervals [place] Rate: 71 P: 32 CO: 156 QRS: 45 QRSD: 66 T: 21 QT: 326 QTc: 354 Interpretive Statements SINUS RHYTHM Electronically Signed On 01-20-2020 11:16:58 CDT by William Petty
== END 2020-01-19 16:09 | disposition home or self-care (01) ==
LOC: ER 15:38
DX: F41.9 Anxiety disorder, unspecified (principal); R00.2 Palpitations; F17.210 Nicotine dependence, cigarettes, uncomplicated; Z87.440 Personal history of urinary (tract) infections; Z87.442 Personal history of urinary calculi; Z88.6 Allergy status to analgesic agent; Z88.8 Allergy status to other drugs, medicaments and biological substances
CPT/HCPCS: 93005; 99283

== ENCOUNTER 2020-04-07 12:01 | Emergency (ER) | payer SELFPAY ==
[~2020-04-07] VITALS: Ht 152.4 cm; Wt 47.6 kg
[~2020-04-07 12:01] MED LIST changes: +ALPR0.5T6 PO
[2020-04-07 12:05] VITALS: BP 124/84
--- NOTE | 2020-04-07 12:27 | PHYS DOC ---
Past History Past Medical History: Kidney Stones, UTI, Other Additional Past Medical Histor: low back pain Past Surgical History: Appendectomy, Cholecystectomy, Tubal ligation Additional Past Surgical Histo: Left shoulder rotator cuff x 3, L-spine fusion, R eye prosthetic, Smoking: Cigarettes, Less than 1pk/day Alcohol Use: Occasionally Drug Use: None General Adult EDM: Chief Complaint: WRIST PAIN HPI: HPI: Patient is a 44-year-old female who presents to the emergency department for evaluation of right wrist pain. She states that she has broken her scaphoid about a month ago after a fall on an outstretched hand, and was seen in [facility]. She states she was put in the splint and followed up and had her splint removed, and was told to use her wrist normal. She states she was using her wrist to help move boxes about 2 days ago, and felt something pop and had an increase in pain. She denies any numbness, weakness, or any other injuries. The patient was seen in this emergency department in December, and did have a similar story also of a prior wrist fracture. I did review her [employer] history as well. Review of Systems: Review of Systems: Constitutional: Denies fever or chills : Denies dysuria Musculoskeletal: Denies back pain or joint pain, other than as noted in the HPI Integument: Denies rash Neurologic: Denies headache, focal weakness or sensory changes Heart Score: Risk Factors: Risk Factors: DM, Current or recent (<one month) smoker, HTN, HLP, family history of CAD, obesity. Risk Scores: Score 0 - 3: 2.5% MACE over next 6 weeks - Discharge Home Score 4 - 6: 20.3% MACE over next 6 weeks - Admit for Clinical Observation Score 7 - 10: 72.7% MACE over next 6 weeks - Early Invasive Strategies Allergies: Allergies: Allergies Coded Allergies Type Severity Reaction Last Updated Verified cyclobenzaprine Allergy Unknown 04/07/20 Yes meloxicam Allergy Unknown 04/07/20 Yes naproxen Allergy Unknown 04/07/20 Yes tramadol Allergy Unknown 04/07/20 Yes Physical Exam: PE: PHYSICAL EXAM: HEENT: Atruamatic NECK: Supple, normal ROM, non-tender. CARDIAC: Regular Rate and Rhythm LUNGS: Clear Bilaterally EXTREMITIES: There is some diffuse tenderness to palpation of the right wrist in the area of the base of the right thumb, and the first metacarpal. There is no deformity or significant soft tissue swelling. Distal sensation, motor function, and range of motion of all digits is normal. The remainder the extremities are unremarkable. Current Patient Data: Vital Signs: Vital Signs Date Time Temp Pulse Resp B/P (MAP) Pulse Ox O2 Delivery O2 Flow Rate FiO2 04/07/20 12:05 98.1 66 18 124/84 (97) 98 Room Air EKG: EKG: [] Radiology/Procedures: Radiology/Procedures: PROCEDURE: WRIST 3V RIGHT Study: CR WRIST 3V RIGHT Indication: Wrist pain. Provided history of a prior scaphoid fracture. Comparison: 02/08/2020 Findings: No acute fracture. Normal scapholunate interval. Overall carpal alignment is within normal limits. Maintained joint spaces. Normal osseous mineralization. Impression: No acute osseous abnormality. No significant degenerative change or carpal malalignment. [] Course & Med Decision Making: Course & Med Decision Making Pertinent Imaging studies reviewed. (See chart for details) [] Patient remains stable. I discussed test results, the need for close follow- up, and return precautions. The patient states she has an Adonis wrap at home. Discussed use of NSAIDs and Tylenol for pain. I discussed importance of follow- up with her previously established orthopedics physician. Adry Disclaimer: Adry Disclaimer: This electronic medical record was generated, in whole or in part, using a voice recognition dictation system. Departure Departure: Impression: Primary Impression: Wrist sprain Disposition: 01 HOME/RESIDENCE PRIOR TO ADM Condition: STABLE Patient Instructions: RICE - Routine Care for Injuries, Wrist Pain Additional Instructions: Ibuprofen 400-600 mg every 6 hours may help improve your symptoms. Applying a heating pad to the affected area may help improve your symptoms. Follow-up with your previously established orthopedic physician. Justification of Admission: Justification of Admission: Justification of Admission Dx: N/A REYNA SZYMANSKI MD Apr 07, 2020 12:27
--- NOTE | 2020-04-07 12:39 | RAD ---
Study: CR WRIST 3V RIGHT Indication: Wrist pain. Provided history of a prior scaphoid fracture. Comparison: 02/08/2020 Findings: No acute fracture. Normal scapholunate interval. Overall carpal alignment is within normal limits. Maintained joint spaces. Normal osseous mineralization. Impression: No acute osseous abnormality. No significant degenerative change or carpal malalignment. Electronically signed by: KRAIG SHEA MD (04/07/2020 12:36 PM) [id number]
== END 2020-04-07 13:07 | disposition home or self-care (01) ==
LOC: ER 12:01
DX: S63.501A Unspecified sprain of right wrist, initial encounter (principal); F17.210 Nicotine dependence, cigarettes, uncomplicated; Z87.442 Personal history of urinary calculi; Z87.440 Personal history of urinary (tract) infections; Z88.6 Allergy status to analgesic agent; Z88.8 Allergy status to other drugs, medicaments and biological substances; X50.9XXA Other and unspecified overexertion or strenuous movements or postures, initial encounter; Y93.89 Activity, other specified; Y92.89 Other specified places as the place of occurrence of the external cause; Y99.8 Other external cause status
CPT/HCPCS: 73110; 99283

== ENCOUNTER 2021-02-14 21:07 | Emergency (ER) | payer SELFPAY ==
[~2021-02-14] VITALS: Ht 152.4 cm; Wt 47.6 kg
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
[2021-02-14] MEDS ORDERED: MORPHINE SULFATE 2 MG/ML DISP.SYRIN. IV ONE (22:30)
[2021-02-14] MEDS ORDERED: ONDANSETRON PF 4 MG/2 ML VIAL. IVP ONE (22:30)
[2021-02-14 22:38] LABS: BASO # 0.1 x10^3/uL (0.0-0.2); BASO % 1 % (0-3); EOS # 0.1 x10^3/uL (0.0-0.7); EOS % 1 % (0-3); HEMATOCRIT 37.8 % (36.0-47.0); HEMOGLOBIN 12.6 g/dL (12.0-15.5); LYMPH # 2.6 x10^3/uL (1.0-4.8); LYMPH % 18 % (24-48); MEAN CORPUSCULAR HEMOGLOBIN 30 pg (25-35); MEAN CORPUSCULAR HGB CONC 33 g/dL (31-37); MEAN CORPUSCULAR VOLUME 90 fL (79-100); MONO # 0.8 x10^3/uL (0.0-1.1); MONO % 6 % (0-9); NEUT # 10.3 x10^3uL (1.8-7.7); NEUT % 74 % (31-73); PLATELET COUNT 373 x10^3/uL (140-400); RED BLOOD COUNT 4.18 x10^6/uL (3.50-5.40); RED CELL DISTRIBUTION WIDTH 13.3 % (11.5-14.5); WHITE BLOOD COUNT 13.9 x10^3/uL (4.0-11.0)
[2021-02-14 22:44] LABS: CALCIUM 9.3 mg/dL (8.5-10.1); CREATININE 0.8 mg/dL (0.6-1.0); GFR 76.9; POTASSIUM 4.1 mmol/L (3.5-5.1)
[2021-02-14 22:54] LABS: ALBUMIN 4.2 g/dL (3.4-5.0); ALBUMIN/GLOBULIN RATIO 1.2 (1.0-1.7); TOTAL BILIRUBIN 0.6 mg/dL (0.2-1.0); TOTAL PROTEIN 7.7 g/dL (6.4-8.2)
--- NOTE | 2021-02-14 23:02 | RAD ---
XR CHEST 1V Clinical Indication: Reason: CHEST PAIN / Spl. Instructions: / History: Comparison: Two-view chest January 05, 2019. Findings: The cardiomediastinal silhouette is normal. Lungs are clear. There is no pneumothorax. No pleural eff usion is appreciated. No acute bone abnormality. Cholecystectomy clips. IMPRESSION: No acute cardiopulmonary process. Electronically signed by: Umesh Wellington MD (02/14/2021 10:59 PM) [facility]
[2021-02-14 23:22] LABS: BARBITURATES NEG (NEG); BENZODIAZEPINES NEG (NEG); CANNABINOIDS NEG (NEG); COCAINE NEG (NEG); METHADONE NEG (NEG); OPIATES POS (NEG); PHENCYCLIDINE NEG (NEG)
[2021-02-14 23:27] LABS: BILIRUBIN,URINE NEG (NEG); CLARITY,URINE HAZY; COLOR,URINE YELLOW; GLUCOSE,URINE NEG (NEG); NITRITE,URINE NEG (NEG); UROBILINOGEN,URINE 0.2 mg/dL (0.2 mg/dL)
[2021-02-14 23:28] LABS: BACTERIA,URINE FEW /HPF (0-FEW); RBC,URINE 0 /HPF (0-2); SQUAMOUS EPITHELIAL CELL,UR FEW /LPF
--- NOTE | 2021-02-14 23:31 | EKG ---
[address] [address] Test Date: 2021-02-14 Test Time: 21:19:45 Pat Name: SIMON AZAR Department: Room: Gender: F Rotor Winder: : 1975 Requested By: JERI OLIVAREZ Order Number: [id number] Reading MD: Measurements Intervals [place] Rate: 79 P: 41 MS: 152 QRS: 43 QRSD: 68 T: 23 QT: 324 QTc: 372 Interpretive Statements SINUS RHYTHM NORMAL ECG RI6.02 No previous ECG available for comparison
[2021-02-14 23:34] LABS: AMPHETAMINE/METHAMPHETAMINE NEG (NEG)
[2021-02-14 23:48] VITALS: BP 103/53
[2021-02-15] MEDS ORDERED: IV NORMAL SALINE 50ML 0 ML ONE (00:01)
[2021-02-15] MEDS ORDERED: NITR100C62 PO (00:02)
[2021-02-15] MEDS ORDERED: cefTRIAXone SODIUM 1 GM VIAL ONE (00:02)
[2021-02-15] MEDS ORDERED: NITROFURANTOIN MONOHYD/M-CRYST 100 MG CAPSULE. PO ONE (00:30)
== END 2021-02-15 00:10 | disposition home or self-care (01) ==
LOC: ER 21:07
DX: R07.89 Other chest pain (principal); N39.0 Urinary tract infection, site not specified; M54.5 Low back pain; Z90.49 Acquired absence of other specified parts of digestive tract; Z88.5 Allergy status to narcotic agent; Z88.6 Allergy status to analgesic agent; Z98.51 Tubal ligation status; Z87.442 Personal history of urinary calculi
CPT/HCPCS: 36415; 71045; 80053; 80307; 81001; 84484; 85025; 87086; 93005; 96374; 96375; 99285; J2270; J2405

== ENCOUNTER 2021-03-06 12:17 | Emergency (ER) | payer SELFPAY ==
[~2021-03-06] VITALS: Ht 152.4 cm; Wt 46.3 kg
[~2021-03-06 12:17] MED LIST changes: +NITR100C62 PO
[2021-03-06 12:46] VITALS: BP 112/55
[2021-03-06] MEDS: HYDROcodone/APAP 5/325MG 1 TAB TABLET PO ONE (12:56)
--- NOTE | 2021-03-06 12:56 | PHYS DOC ---
Past History Past Medical History: No Pertinent History Additional Past Medical Histor: low back pain (KALEB ARELLANO APRN) Past Surgical History: Appendectomy, Cholecystectomy, Tubal ligation Additional Past Surgical Histo: Left shoulder rotator cuff x 3, L-spine fusion, R eye prosthetic, (KALEB ARELLANO APRN) Smoking: Cigarettes, Less than 1pk/day Alcohol Use: Occasionally Drug Use: None (KALEB ARELLANO APRN) General Adult EDM: Chief Complaint: MECHANICAL FALL HPI: HPI: Patient is a 45-year-old female presents after a fall down 6 stairs at home. Patient denies is in consciousness or hitting her head. Patient is complaining of right wrist pain and right knee pain. Patient denies taking anything for pain prior to arrival. Patient is able to ambulate on her own. Patient denies health history. (KALEB ARELLANO APRN) Review of Systems: Review of Systems: Constitutional: Denies fever or chills Eyes: Denies change in visual acuity HENT: Denies nasal congestion or sore throat Respiratory: Denies cough or shortness of breath Cardiovascular: Denies chest pain or edema GI: Denies abdominal pain, nausea, vomiting, bloody stools or diarrhea : Denies dysuria Musculoskeletal: Reports lower back pain or joint pain Integument: Denies rash Neurologic: Denies headache, focal weakness or sensory changes Endocrine: Denies polyuria or polydipsia Lymphatic: Denies swollen glands Psychiatric: Denies depression or anxiety (KALEB ARELLANO APRN) Allergies: Allergies: Allergies Coded Allergies Type Severity Reaction Last Updated Verified cyclobenzaprine Allergy Unknown 04/07/20 Yes meloxicam Allergy Unknown 04/07/20 Yes naproxen Allergy Unknown 04/07/20 Yes tramadol Allergy Unknown 04/07/20 Yes (KALEB ARELLANO APRN) Physical Exam: PE: Constitutional: Well developed, well nourished, no acute distress, non-toxic appearance. [] HENT: Normocephalic, atraumatic, bilateral external ears normal, oropharynx moist, no oral exudates, nose normal. [] Eyes: PERRLA, EOMI, conjunctiva normal, no discharge. [] Neck: Normal range of motion, no tenderness, supple, no stridor. [] Cardiovascular:Heart rate regular rhythm, no murmur [] Lungs & Thorax: Bilateral breath sounds clear to auscultation [] Abdomen: Bowel sounds normal, soft, no tenderness, no masses, no pulsatile masses. [] Skin: Warm, dry, no erythema, no rash. [] Back: Lower back tenderness, no CVA tenderness. [] Extremities: Right wrist tenderness, denies no cyanosis, no clubbing, ROM intact, no edema. [] Neurologic: Alert and oriented X 3, normal motor function, normal sensory function, no focal deficits noted. [] Psychologic: Affect normal, judgement normal, mood normal. [] (KALEB ARELLANO APRN) Current Patient Data: Vital Signs: Vital Signs Date Time Temp Pulse Resp B/P (MAP) Pulse Ox O2 Delivery O2 Flow Rate FiO2 03/06/21 12:46 99.7 86 20 112/55 (74) Room Air (KALEB ARELLANO APRN) EKG: EKG: [] (KALEB ARELLANO APRN) Radiology/Procedures: Radiology/Procedures: [] XR RT WRIST 3VIEWS DATE: 03/06/2021 1:13 PM INDICATION: RIGHT WRIST PAIN COMPARISON: None. FINDINGS: Bones: There is no evidence of acute fracture or dislocation. Joints: The joint spaces are normal. Miscellaneous: None. IMPRESSION: No evidence of acute fracture. Electronically signed by: Jurgen Melgar MD (03/06/2021 1:31 PM) [id number] XR KNEE 4 VIEWS WITH PATELLA_RT DATE: 03/06/2021 1:13 PM INDICATION: PAIN COMPARISON: None. FINDINGS: Bones: There is no evidence of acute fracture or dislocation. Joints: The joint spaces are normal. There is no joint effusion. Miscellaneous: None. IMPRESSION: No evidence of acute fracture. Electronically signed by: Jurgen Melgar MD (03/06/2021 1:30 PM) [id number] (KALEB ARELLANO APRN) Heart Score: C/O Chest Pain: No Risk Factors: Risk Factors: DM, Current or recent (<one month) smoker, HTN, HLP, family history of CAD, obesity. Risk Scores: Score 0 - 3: 2.5% MACE over next 6 weeks - Discharge Home Score 4 - 6: 20.3% MACE over next 6 weeks - Admit for Clinical Observation Score 7 - 10: 72.7% MACE over next 6 weeks - Early Invasive Strategies (KALEB ARELLANO APRN) Course & Med Decision Making: Course & Med Decision Making Pertinent Labs and Imaging studies reviewed. (See chart for details) [] 45-year-old female presents after a fall down 6 stairs at home. Patient's pain of right wrist and right knee pain. X-ray of right wrist and knee ordered. Patient given hydrocodone for pain. Radial pulse, neurovascular intact. Wrist and knee x-ray was negative for fracture. Patient is having snuffbox tenderness. Injury still suspicious for scaphoid fracture. Spica splint placed. Instructed patient to follow-up with Ortho to have repeat Wrist and scaphoid X-rays to assess for fracture. Patient given hydrocodone for pain. Patient instructed to take Tylenol and ibuprofen at home for discomfort. Rice instructions given. (KALEB ARELLANO APRN) Dragon Disclaimer: Dragon Disclaimer: This electronic medical record was generated, in whole or in part, using a voice recognition dictation system. (KALEB ARELLANO APRN) Attending Co-Sign The patient was seen and interviewed as well as examined at the bedside. The chart was reviewed. The case was discussed. Agree with the plan of care. (JERI OLIVAREZ DO) Departure Departure: Impression: Primary Impression: Wrist pain, acute Qualified Codes: M25.531 - Pain in right wrist Additional Impression: Fall Qualified Codes: W19.XXXA - Unspecified fall, initial encounter Disposition: HOME / SELF CARE / HOMELESS Condition: STABLE Referrals: PCP,NO (PCP) Patient Instructions: Wrist Pain, [id number] Additional Instructions: Seen emergency room after a fall. Your wrist and knee x-ray were both negative for fracture. You need to follow-up with Ortho on Sunday to have repeat x-rays of your wrist. You can take ibuprofen and Tylenol at home for discomfort. I am giving a prescription for a few hydrocodone's until you are able to get to orthopedics. EMERGENCY DEPARTMENT GENERAL DISCHARGE INSTRUCTIONS Thank you for coming to [facility] (ED) today and trusting us with you care. We trust that you had a positivie experience in our Emergency Department. If you wish to speak to the department management, you may call the director at [phone]. YOUR FOLLOW UP INSTRUCTIONS ARE FOLLOWS: 1. Do you have a private Doctor? If you do not have a private doctor, please ask for a resource list of physicians or clinics that may be able to assist you with follow up care. 2. The Emergency Physician has interpreted your x-rays. The X-Ray specialist will also review them. If there is a change in the findings, you will be notified in 48 hours when at all possible. 3. A lab test or culture has been done, your results will be reviewed and you will be notified if you need a change in treatment. ADDITIONAL INSTRUCTIONS AND INFORMATION: 1. Your care today has been supervised by a physician who is specially trained in emergency care. Many problems require more than one evaluation for a complete diagnosis and treatment. We recommend that you schedule your follow up appointment as recommended to ensure complete treatment of you illness or injury. If you are unable to obtain follow up care and continue to have a problem, or if your condition worsens, we recommend that you return to the ED. 2. We are not able to safely determine your condition over the phone nor are we able to give sound medical advice over the phone. For these safety reasons, if you call for medical advice we will ask you to come to the ED for further evaluation. 3. If you have any questions regarding these discharge instructions please call the ED at [phone]. SAFETY INFORMATION: In the interest of safety, wellness, and injury prevention; we encourage you to wear your sealbelt, if you smoke; quite smoking, and we encourage family to use a protective helmet for bicycling and other sporting events that present an increased risk for head injury. IF YOUR SYMPTOMS WORSEN OR NEW SYMPTOMS DEVELOP, OR YOU HAVE CONCERNS ABOUT YOUR CONDITION; OR IF YOUR CONDITION WORSENS WHILE YOU ARE WAITING FOR YOUR FOLLOW UP APPOINTMENT; EITHER CONTACT YOUR PRIMARY CARE DOCTOR, THE PHYSICIAN WHOSE NAME AND NUMBER YOU WERE GIVEN, OR RETURN TO THE ED IMMEDIATELY. Scripts Hydrocodone Bit/Acetaminophen (HYDROCODONE-APAP 5-325 ) 1 Each Tablet 1 TAB PO PRN Q6HRS PRN for PAIN for 3 Days, #12 TAB 0 Refills Prov: KALEB ARELLANO APRN 03/06/21 KALEB ARELLANO APRN March 06, 2021 12:56 JERI OLIVAREZ DO Mar 08, 2021 18:33
--- NOTE | 2021-03-06 13:32 | RAD ---
XR KNEE 4 VIEWS WITH PATELLA_RT DATE: 03/06/2021 1:13 PM INDICATION: PAIN COMPARISON: None. FINDINGS: Bones: There is no evidence of acute fracture or dislocation. Joints: The joint spaces are normal. There is no joint effusion. Miscellaneous: None. IMPRESSION: No evidence of acute fracture. Electronically signed by: Jurgen Melgar MD (03/06/2021 1:30 PM) [id number]
--- NOTE | 2021-03-06 13:33 | RAD ---
XR RT WRIST 3VIEWS DATE: 03/06/2021 1:13 PM INDICATION: RIGHT WRIST PAIN COMPARISON: None. FINDINGS: Bones: There is no evidence of acute fracture or dislocation. Joints: The joint spaces are normal. Miscellaneous: None. IMPRESSION: No evidence of acute fracture. Electronically signed by: Jurgen Melgar MD (03/06/2021 1:31 PM) [id number]
[2021-03-06] MEDS ORDERED: HYDR-2155 PO (13:56)
== END 2021-03-06 13:59 | disposition home or self-care (01) ==
LOC: ER 12:17
DX: M25.531 Pain in right wrist (principal); M25.561 Pain in right knee; M54.5 Low back pain; F17.210 Nicotine dependence, cigarettes, uncomplicated; Z88.8 Allergy status to other drugs, medicaments and biological substances; W10.8XXA Fall (on) (from) other stairs and steps, initial encounter; Y93.89 Activity, other specified; Y92.89 Other specified places as the place of occurrence of the external cause; Y99.8 Other external cause status
CPT/HCPCS: 29125; 73110; 73564; 99284

== ENCOUNTER 2021-03-16 13:28 | Emergency (ER) | payer SELFPAY ==
[~2021-03-16] VITALS: Ht 152.4 cm; Wt 46.5 kg
[~2021-03-16 13:28] MED LIST changes: +HYDR-2155 PO
[2021-03-16] MEDS ORDERED: ONDANSETRON PF 4 MG/2 ML VIAL. IVP ONE (14:30)
[2021-03-16] MEDS ORDERED: MORPHINE SULFATE 4 MG/ML DISP.SYRIN. IV ONE (14:30)
[2021-03-16 14:44] LABS: BASO # 0.1 x10^3/uL (0.0-0.2); BASO % 1 % (0-3); EOS # 0.1 x10^3/uL (0.0-0.7); EOS % 1 % (0-3); HEMATOCRIT 37.6 % (36.0-47.0); HEMOGLOBIN 12.6 g/dL (12.0-15.5); LYMPH # 1.9 x10^3/uL (1.0-4.8); LYMPH % 20 % (24-48); MEAN CORPUSCULAR HEMOGLOBIN 30 pg (25-35); MEAN CORPUSCULAR HGB CONC 34 g/dL (31-37); MEAN CORPUSCULAR VOLUME 89 fL (79-100); MONO # 0.5 x10^3/uL (0.0-1.1); MONO % 6 % (0-9); NEUT # 7.1 x10^3uL (1.8-7.7); NEUT % 73 % (31-73); PLATELET COUNT 308 x10^3/uL (140-400); RED BLOOD COUNT 4.24 x10^6/uL (3.50-5.40); RED CELL DISTRIBUTION WIDTH 13.4 % (11.5-14.5); WHITE BLOOD COUNT 9.6 x10^3/uL (4.0-11.0)
[2021-03-16 15:00] LABS: CREATININE 0.7 mg/dL (0.6-1.0); GFR 89.7; POTASSIUM 3.7 mmol/L (3.5-5.1)
[2021-03-16 15:07] LABS: ALBUMIN 3.7 g/dL (3.4-5.0); TOTAL BILIRUBIN 0.4 mg/dL (0.2-1.0); TOTAL PROTEIN 7.3 g/dL (6.4-8.2)
--- NOTE | 2021-03-16 15:21 | PHYS DOC ---
Past History Past Medical History: Kidney Stones Additional Past Medical Histor: low back pain Past Surgical History: Appendectomy, Cholecystectomy, Tubal ligation Additional Past Surgical Histo: Left shoulder rotator cuff x 3, L-spine fusion, R eye prosthetic, Smoking: Cigarettes, Less than 1pk/day Alcohol Use: Rarely Drug Use: None Adult General Chief Complaint Chief Complaint: FLANK PAIN [facility] HPI Patient is a 45-year-old female who presents to the emergency department with complaints of a sudden onset of right flank pain yesterday afternoon that she states is consistent with her previous kidney stone onset. Patient reports her last kidney stone exacerbation was approximately 1 year ago. Patient reports right sided flank pain which is where she always has her kidney stones. Patient currently reports her pain at a 7 out of 10. Patient also reports seeing blood in her urine, does complain of pressure with urination however denies burning, urinary frequency, vaginal discharge, or rashes of the vaginal area. Patient denies STI concerns. Patient states she is postmenopausal and has not had a period for years, reports a past surgical history of appendectomy, cholecystectomy, tubal ligation. Patient reports an allergy to tramadol, naproxen, meloxicam, Advil, and cyclobenzaprine. Patient states she takes no prescription medications at home. Patient reports she does not have a primary care physician because she cannot afford 1 related to no insurance. Patient denies illicit drug use, denies drinking alcohol, states she quit smoking cigarettes 2 months ago. Patient denies nausea, vomiting, diarrhea, or abdominal pain. Or pelvic pain. Patient denies chest pains, rashes of the skin, headaches, patient denies any other physical complaints or physical concerns. Review of Systems Review of Systems 14 body systems of review of systems have been reviewed. See HPI for pertinent positives and negative responses, otherwise all other systems are negative, nonpertinent or noncontributory. Current Medications Current Medications Current Medications Medications (Trade) Dose Ordered Sig/Geovanny Start Time Stop Time Status Last Admin Dose Admin Morphine Sulfate (Morphine 4mg Syringe) 4 mg 1X ONCE 03/16/21 14:30 03/16/21 14:31 DC 03/16/21 14:43 4 MG Ondansetron HCl (Zofran) 4 mg 1X ONCE 03/16/21 14:30 03/16/21 14:31 DC 03/16/21 14:40 4 MG Allergies Allergies Allergies Coded Allergies Type Severity Reaction Last Updated Verified cyclobenzaprine Allergy Unknown 03/16/21 Yes meloxicam Allergy Unknown 03/16/21 Yes naproxen Allergy Unknown 03/16/21 Yes tramadol Allergy Unknown 03/16/21 Yes Physical Exam Physical Exam Constitutional: Well developed, well nourished, no acute distress, non-toxic appearance. 45-year-old female in no apparent distress. HENT: Normocephalic, atraumatic, bilateral external ears normal, oropharynx moist, no oral exudates, nose normal. Eyes: PERRLA, EOMI, conjunctiva normal, no discharge. Neck: Normal range of motion, no tenderness, supple, no stridor. Cardiovascular:Heart rate regular rhythm, no murmur, heart sounds S1-S2 to auscultation. Lungs & Thorax: Bilateral breath sounds clear to auscultation no adventitious lung sounds appreciated. Abdomen: Bowel sounds normal, soft, no tenderness, no masses, no pulsatile masses. No bruising of the abdomen appreciated, no areas of ecchymosis, old surgical scars present. Skin: Warm, dry, no erythema, no rash. Back: No midline spinal tenderness, no left-sided CVA tenderness, positive right-sided CVA tenderness. No bruising or deformities or rashes of the back. Extremities: No tenderness, no cyanosis, no clubbing, ROM intact, no edema. Neurologic: Alert and oriented X 3, normal motor function, normal sensory function, no focal deficits noted. Psychologic: Affect normal, judgement normal, mood normal. Current Patient Data Vital Signs Vital Signs Date Time Temp Pulse Resp B/P (MAP) Pulse Ox O2 Delivery O2 Flow Rate FiO2 03/16/21 14:43 16 97 03/16/21 13:37 98.3 75 123/89 (100) Room Air Lab Results Laboratory Tests Test 03/16/21 14:30 White Blood Count 9.6 x10^3/uL (4.0-11.0) Red Blood Count 4.24 x10^6/uL (3.50-5.40) Hemoglobin 12.6 g/dL (12.0-15.5) Hematocrit 37.6 % (36.0-47.0) Mean Corpuscular Volume 89 fL (79-100) Mean Corpuscular Hemoglobin 30 pg (25-35) Mean Corpuscular Hemoglobin Concent 34 g/dL (31-37) Red Cell Distribution Width 13.4 % (11.5-14.5) Platelet Count 308 x10^3/uL (140-400) Neutrophils (%) (Auto) 73 % (31-73) Lymphocytes (%) (Auto) 20 % (24-48) L Monocytes (%) (Auto) 6 % (0-9) Eosinophils (%) (Auto) 1 % (0-3) Basophils (%) (Auto) 1 % (0-3) Neutrophils # (Auto) 7.1 x10^3uL (1.8-7.7) Lymphocytes # (Auto) 1.9 x10^3/uL (1.0-4.8) Monocytes # (Auto) 0.5 x10^3/uL (0.0-1.1) Eosinophils # (Auto) 0.1 x10^3/uL (0.0-0.7) Basophils # (Auto) 0.1 x10^3/uL (0.0-0.2) EKG EKG [] Radiology/Procedures Radiology/Procedures PATIENT: SIMON AZAR ACCOUNT: [id number] : 1975 LOCATION: ER AGE: 45 SEX: F EXAM STATUS: REG ER ORD. PHYSICIAN: ALISHA ROSEN APRN REASON: RT FLANK PAIN, HEMATURIA, STONE STUDY PROCEDURE: CT ABDOMEN PELVIS WO CONTRAST EXAM: CT Abdomen and Pelvis without IV contrast CLINICAL HISTORY: Reason: RT FLANK PAIN, HEMATURIA, STONE STUDY / Spl. Instructions: / History: . COMPARISON: none TECHNIQUE: Helical CT of the abdomen and pelvis without intravenous contrast. Axial, coronal and sagittal reformatted images were generated. PQRS compliance statement - One or more of the following individualized dose reduction techniques were utilized for this study: 1. Automated exposure control 2. Adjustment of the mA and/or kV according to patient size 3. Use of iterative reconstruction technique FINDINGS: Lack of intravenous contrast limits evaluation of solid organs, vasculature, and lymph nodes. Lower chest: Lung bases are clear. Abdomen and Pelvis: Left hepatic lobe cyst is seen. Cholecystectomy clips are seen. No biliary duct dilatation. Pancreas is normal in appearance. Spleen is unremarkable. Adrenal glands are normal. No focal renal lesion. No renal tract calculus. No hydronephrosis. No hydroureter. Bladder is unremarkable. Moderate colonic stool content is seen. Appendix is not seen. No pericecal inflammatory change. No small or large bowel dilatation. No bowel obstruction. There is a segment of thickened colon in the left upper quadrant/splenic flexure, recommend correlation with colonoscopy if not previously performed to exclude underlying mass. No abdominal or pelvic ascites. No abdominal or pelvic lymphadenopathy. Bones: No aggressive osseous lesion is seen. Postsurgical changes lower lumbar spine. Degenerative changes L1-2. IMPRESSION: No renal tract calculus. No hydronephrosis or hydroureter. Bladder is unremarkable. Segment of the colon at the splenic flexure appears thickened. Although this may be related to focal contraction, underlying mass is not excluded and should be further assessed by colonoscopy. Electronically signed by: Maximo Dasilva MD (03/16/2021 3:30 PM) [facility] [place] DICTATED AND SIGNED BY: MAXIMO DASILVA MD DATE: 03/16/21 0812 CC: ALISHA ROSEN APRN; EMERGENCY,DEPARTMENT; PCP,NO ~MTH0 0 Heart Score C/O Chest Pain: No Risk Factors: Risk Factors: DM, Current or recent (<one month) smoker, HTN, HLP, family history of CAD, obesity. Risk Scores: Risk Factors: DM, Current or recent (<one month) smoker, HTN, HLP, family history of CAD, obesity. Course & Med Decision Making Course & Med Decision Making Pertinent Labs and Imaging studies reviewed. (See chart for details) 45-year-old female, vital signs reviewed, presents emergency department with complaints of kidney stone pain on the right side. Patient reports sudden onset right-sided kidney stone pain yesterday afternoon, she was unsure of exactly what time,, states she was unable to make it to the emergency department because she could not find a ride. Patient states she has a long history of kidney stones and they always seem to be on the right side. Patient's urine pink- tinged will send for urinalysis assay, start IV saline lock, 1 L normal saline, give 4 mg of morphine for pain. We will also give 4 mg Zofran for prophylaxis of nausea. Patient's primary registered nurse states that the patient was just here on 06 Mar 2021 and received 30 tablets of hydrocodone. Reviewed patient on [facility] site, patient had actually received 12 tablets from her emergency room visit here on March 062020, however patient has received a total of 58 prescriptions from 40 to separate providers from 34 separate area pharmacies, in the past month has received 4 separate prescriptions for hydrocodone and one prescription for morphine sulfate extended release. Patient has no primary care provider, it appears she is being seen at area emergency departments and having emergency room providers write her prescriptions. Patient CT abdomen pelvis nonconcerning for kidney stone, however shows abnormality in splenic flexure and recommends follow-up for colonoscopy. Will give recommendation of GI for colonoscopy. Will give recommendation of urology for abnormal urination and hematuria. The patient's urine was not infected, had red blood cells only. The patient serum lab work unremarkable. The patient's urine was not infected. Upon reevaluation of the patient, discussed findings with patient, patient states that she has had no pain relief from the morphine and is asking for a prescription for hydrocodone pills. Discussed [employer] findings with patient, patient responded could she have 6 tablets only, discussed with patient how many times she has been seen at different facilities and received narcotic medications, patient responded could she get only 3 tablets of hydrocodone. Discussed with patient we will not give any narcotic medication here in the emergency department, will recommend a follow-up care family physician for primary care to be evaluated for pain management. Patient gave verbal understanding of discharge home instructions, follow-up with GI for abnormal CT, follow-up with urology for hematuria, follow-up with primary care for ongoing pain management, return to ER precautions and concerns, patient had no further questions or concerns and was discharged home without incident. Dragon Disclaimer Dragon Disclaimer This electronic medical record was generated, in whole or in part, using a voice recognition dictation system. Departure Departure: Impression: Primary Impression: Right flank pain Additional Impressions: Hematuria Abnormal abdominal CT scan Disposition: HOME / SELF CARE / HOMELESS Condition: GOOD Referrals: PCP,NO (PCP) Additional Instructions: You are seen in the emergency department for complaints of right flank pain, the CT scan did not suggest any stone or recent stone, however there was an abnormality in your sigmoid colon that was recommended follow-up with colonoscopy, I am providing you a GI specialist to follow-up with. [facility] telephone number [phone]. You had blood in your urine without a urinary tract infection, I recommend you follow-up with a urologist. [facility] at phone number [phone]. For primary care for your ongoing pain management you may choose to use any one of the physicians or healthcare providers at the [facility], phone number . Please return to the emergency department for worsening symptoms or other concerns. EMERGENCY DEPARTMENT GENERAL DISCHARGE INSTRUCTIONS Thank you for coming to [facility] (ED) today and trusting us with you care. We trust that you had a positivie experience in our Emergency Department. If you wish to speak to the department management, you may call the director at [phone]. YOUR FOLLOW UP INSTRUCTIONS ARE FOLLOWS: 1. Do you have a private Doctor? If you do not have a private doctor, please ask for a resource list of physicians or clinics that may be able to assist you with follow up care. 2. The Emergency Physician has interpreted your x-rays. The X-Ray specialist will also review them. If there is a change in the findings, you will be notified in 48 hours when at all possible. 3. A lab test or culture has been done, your results will be reviewed and you will be notified if you need a change in treatment. ADDITIONAL INSTRUCTIONS AND INFORMATION: 1. Your care today has been supervised by a physician who is specially trained in emergency care. Many problems require more than one evaluation for a complete diagnosis and treatment. We recommend that you schedule your follow up appointment as recom mended to ensure complete treatment of you illness or injury. If you are unable to obtain follow up care and continue to have a problem, or if your condition worsens, we recommend that you return to the ED. 2. We are not able to safely determine your condition over the phone nor are we able to give sound medical advice over the phone. For these safety reasons, if you call for medical advice we will ask you to come to the ED for further evaluation. 3. If you have any questions regarding these discharge instructions please call the ED at [phone]. SAFETY INFORMATION: In the interest of safety, wellness, and injury prevention; we encourage you to wear your sealbelt, if you smoke; quite smoking, and we encourage family to use a protective helmet for bicycling and other sporting events that present an increased risk for head injury. IF YOUR SYMPTOMS WORSEN OR NEW SYMPTOMS DEVELOP, OR YOU HAVE CONCERNS ABOUT YOUR CONDITION; OR IF YOUR CONDITION WORSENS WHILE YOU ARE WAITING FOR YOUR FOLLOW UP APPOINTMENT; EITHER CONTACT YOUR PRIMARY CARE DOCTOR, THE PHYSICIAN WHOSE NAME AND NUMBER YOU WERE GIVEN, OR RETURN TO THE ED IMMEDIATELY. Problem Qualifiers Additional Impressions: Hematuria Hematuria type: unspecified type Qualified Codes: R31.9 - Hematuria, unspecified ALISHA ROSEN POST OFFICE CLERK Mar 16, 2021 15:21
--- NOTE | 2021-03-16 15:32 | RAD ---
EXAM: CT Abdomen and Pelvis without IV contrast CLINICAL HISTORY: Reason: RT FLANK PAIN, HEMATURIA, STONE STUDY / Spl. Instructions: / History: . COMPARISON: none TECHNIQUE: Helical CT of the abdomen and pelvis without intravenous contrast. Axial, coronal and sagi ttal reformatted images were generated. PQRS compliance statement - One or more of the following individualized dose reduction techniques wer e utilized for this study: 1. Automated exposure control 2. Adjustment of the mA and/or kV according to patient size 3. Use of iterative reconstruction technique FINDINGS: Lack of intravenous contrast limits evaluation of solid organs, vasculature, and lymph nodes. Lower chest: Lung bases are clear. Abdomen and Pelvis: Left hepatic lobe cyst is seen. Cholecystectomy clips are seen. No biliary duct dilatation. Pancreas is normal in appearance. Spleen is unremarkable. Adrenal glands are normal. No focal renal lesion. No renal tract calculus. No hydronephrosis. No hydroureter. Bladder is unremarkable. Moderate colonic stool content is seen. Appendix is not seen. No pericecal inflammatory change. No sm all or large bowel dilatation. No bowel obstruction. There is a segment of thickened colon in the lef t upper quadrant/splenic flexure, recommend correlation with colonoscopy if not previously performed to exclude underlying mass. No abdominal or pelvic ascites. No abdominal or pelvic lymphadenopathy. Bones: No aggressive osseous lesion is seen. Postsurgical changes lower lumbar spine. Degenerative changes L 1-2. IMPRESSION: No renal tract calculus. No hydronephrosis or hydroureter. Bladder is unremarkable. Segment of the colon at the splenic flexure appears thickened. Although this may be related to focal contraction, underlying mass is not excluded and should be further assessed by colonoscopy. Electronically signed by: Maximo Dasilva MD (03/16/2021 3:30 PM) [facility]
[2021-03-16 16:05] LABS: BILIRUBIN,URINE NEG (NEG); CLARITY,URINE HAZY; COLOR,URINE PINK; GLUCOSE,URINE NEG (NEG); NITRITE,URINE NEG (NEG); UROBILINOGEN,URINE 0.2 mg/dL (0.2 mg/dL)
[2021-03-16 16:06] LABS: BACTERIA,URINE 0 /HPF (0-FEW); RBC,URINE >40 /HPF (0-2); SQUAMOUS EPITHELIAL CELL,UR OCC /LPF; WBC,URINE 0 /HPF (0-4)
[2021-03-16 16:40] VITALS: BP 119/55
== END 2021-03-16 16:45 | disposition home or self-care (01) ==
LOC: ER 13:28
DX: R10.9 Unspecified abdominal pain (principal); R31.9 Hematuria, unspecified; R93.5 Abnormal findings on diagnostic imaging of other abdominal regions, including retroperitoneum; F17.210 Nicotine dependence, cigarettes, uncomplicated; Z87.442 Personal history of urinary calculi; Z90.49 Acquired absence of other specified parts of digestive tract; Z90.89 Acquired absence of other organs; Z98.51 Tubal ligation status; Z88.8 Allergy status to other drugs, medicaments and biological substances; Z88.6 Allergy status to analgesic agent
CPT/HCPCS: 36415; 74176; 80053; 81001; 85025; 96374; 96375; 99284; J2270; J2405

== ENCOUNTER 2021-04-09 18:41 | Emergency (ER) | payer SELFPAY ==
[~2021-04-09] VITALS: Ht 152.4 cm; Wt 46.5 kg
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
[2021-04-09 18:51] VITALS: BP 119/55
[2021-04-09] MEDS ORDERED: HYDROcodon/IBUPROFEN 7.5/200MG 1 TAB TABLET ONE (19:00)
[2021-04-09] MEDS: HYDROcodon/IBUPROFEN 7.5/200MG 1 TAB TABLET PO ONE (19:02)
[2021-04-09] MEDS ORDERED: HYDR-1179 PO (19:02)
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
== END 2021-04-09 19:23 | disposition home or self-care (01) ==
LOC: ER 18:41
DX: S80.01XA Contusion of right knee, initial encounter (principal); F17.210 Nicotine dependence, cigarettes, uncomplicated; Z88.5 Allergy status to narcotic agent; Z90.49 Acquired absence of other specified parts of digestive tract; Z98.51 Tubal ligation status; Z87.442 Personal history of urinary calculi; Z88.6 Allergy status to analgesic agent; V43.52XA Car driver injured in collision with other type car in traffic accident, initial encounter; Y93.89 Activity, other specified; Y92.89 Other specified places as the place of occurrence of the external cause; Y99.8 Other external cause status
CPT/HCPCS: 73564; 99283-25

== ENCOUNTER 2021-05-06 20:07 | Emergency (ER) | payer SELFPAY ==
[~2021-05-06] VITALS: Ht 152.4 cm; Wt 46.5 kg
[~2021-05-06 20:07] MED LIST changes: +HYDR-1179 PO
[2021-05-06] MEDS ORDERED: IV NORMAL SALINE 1,000ML 1,000 ML IV ONE (20:30)
[2021-05-06] MEDS ORDERED: ONDANSETRON PF 4 MG/2 ML VIAL. IVP ONE (20:30)
[2021-05-06] MEDS ORDERED: ONDANSETRON PF 4 MG/2 ML VIAL. ONE (20:30)
--- NOTE | 2021-05-06 20:30 | PHYS DOC ---
Past History Past Medical History: Kidney Stones Additional Past Medical Histor: low back pain (JANELL VERA APRN) Past Surgical History: Appendectomy, Cholecystectomy, Tubal ligation Additional Past Surgical Histo: Left shoulder rotator cuff x 3, L-spine fusion, R eye prosthetic, (JANELL VERA APRN) Smoking: Cigarettes, Less than 1pk/day, Quit Less Than 1 Year Alcohol Use: Rarely Drug Use: None (JANELL VERA APRN) General Adult EDM: Chief Complaint: ABDOMINAL PAIN HPI: HPI: Patient is a 45-year-old female being seen in the ER today for right lower quadrant pain that radiates into her flank and a sore throat for 3 days. Patient rates pain 8 out of 10. No treatment prior to arrival. Patient reports history of kidney stones. Patient denies dysuria, hematuria, frequency/urgency, vomiting, diarrhea, cough, shortness of breath, fever, loss of taste or smell. Patient is not vaccinated for COVID-19. (JANELL VERA APRN) Review of Systems: Review of Systems: 14 body systems of the review of systems have been reviewed. See HPI for pertinent positive and negative responses, otherwise all other systems are negative, nonpertinent or noncontributory (JANELL VERA APRN) Allergies: Allergies: Allergies Coded Allergies Type Severity Reaction Last Updated Verified cyclobenzaprine Allergy Unknown 03/16/21 Yes meloxicam Allergy Unknown 03/16/21 Yes naproxen Allergy Unknown 03/16/21 Yes tramadol Allergy Unknown 03/16/21 Yes (JANELL VERA APRN) Physical Exam: PE: Constitutional: Well developed, well nourished, no acute distress, non-toxic appearance. [] HENT: Normocephalic, atraumatic, bilateral external ears normal, oropharynx moist, no pharyngeal erythema, no tonsillar enlargement, no oral exudates, nose normal. [] Eyes: PERRL, conjunctiva normal, no discharge. [] Neck: Normal range of motion, no stridor, no cervical lymphadenopathy Cardiovascular:Heart rate regular rhythm, no murmur [] Lungs & Thorax: Bilateral breath sounds clear to auscultation [] Abdomen: Bowel sounds normal, soft, no masses, no pulsatile masses, right lower quadrant pain with palpation, no rebound tenderness. [] Skin: Warm, dry, no erythema, no rash. [] Back: Normal range of motion, right sided CVA tenderness. [] Extremities: No tenderness, no cyanosis, no clubbing, ROM intact, no edema. [] Neurologic: Alert and oriented X 3, normal motor function, normal sensory function, no focal deficits noted. [] Psychologic: Affect normal, judgement normal, mood normal. [] (JANELL VERA APRN) Current Patient Data: Vital Signs: Vital Signs Date Time Temp Pulse Resp B/P (MAP) Pulse Ox O2 Delivery O2 Flow Rate FiO2 05/06/21 20:21 99.7 74 16 115/41 97 Room Air (JANELL VERA APRN) EKG: EKG: [] (JANELL VERA APRN) Radiology/Procedures: Radiology/Procedures: PROCEDURE: CT ABDOMEN PELVIS WO CONTRAST Exam: CT of abdomen and pelvis without contrast INDICATION: Right-sided abdominal and flank pain TECHNIQUE: Sequential axial images through the abdomen and pelvis obtained without IV contrast. Sagittal and coronal reformatted images were reconstructed from the axial data and reviewed. Exposure: One or more of the following in the visualized dose reduction techniques were utilized for this examination: 1. Automated exposure control 2. Adjustment of the MA and/or KV according to patient size 3. Use of iterative of reconstructive technique Comparisons: 03/16/2021 FINDINGS: Heart size is normal. No pericardial effusion. Visualized lung bases are clear. No pleural effusion. Evaluation solid organs limited secondary to noncontrast technique. Liver, spleen, pancreas, and adrenals are unremarkable. Gallbladder surgically absent. No perinephric inflammation or hydronephrosis. No renal or ureteral calculi id entified. Bladder is decompressed not well evaluated. Uterus is nonenlarged. No abnormal adnexal mass. Large and small bowel are unremarkable. Appendix is is not identified. No free intra-abdominal air or fluid. No obstruction. Abdominal aorta has a normal course and caliber. No enlarged abdominal lymph nodes are identified. IMPRESSION: No renal or ureteral calculi. No evidence for obstructive uropathy. Electronically signed by: Ying Williamson MD (05/06/2021 8:59 PM) [facility] DICTATED AND SIGNED BY: IYNG WILLIAMSON MD DATE: 05/06/212054 CC: JANELL VERA APRN; PCP,NO ~MTH0 0 [] (JANELL VERA APRN) Heart Score: C/O Chest Pain: No Risk Factors: Risk Factors: DM, Current or recent (<one month) smoker, HTN, HLP, family history of CAD, obesity. Risk Scores: Score 0 - 3: 2.5% MACE over next 6 weeks - Discharge Home Score 4 - 6: 20.3% MACE over next 6 weeks - Admit for Clinical Observation Score 7 - 10: 72.7% MACE over next 6 weeks - Early Invasive Strategies (JANELL VERA APRN) Course & Med Decision Making: Course & Med Decision Making Pertinent Labs and Imaging studies reviewed. (See chart for details) [] Patient is a 45-year-old female being seen in the ER today for right lower quadrant pain that radiates to her right flank. Patient has a history of kidney stones and she reports that this feels like a kidney stone. Work-up in the ER consisted of blood work, UA, CT scan of abdomen. Patient was treated in the ER with saline, nausea medication, pain medication. Blood work unremarkable. CT scan of abdomen unremarkable. UA positive for UTI. Patient treated with an antibiotic. Patient given first dose in the ER and discharged home with prescription. Patient was Covid tested in the ER. She will be notified of these results when they become available. I discussed with patient all findings and diagnostic testing as well as the need to follow-up with PCP for further evaluation and treatment or return to the ER if any new or worsening symptoms. Strict return precautions were also discussed at length. Patient voiced understanding and agreement with the plan. Patient is hemodynamically stable at the time of disposition. (JANELL VERA APRN) Dragon Disclaimer: Dragon Disclaimer: This electronic medical record was generated, in whole or in part, using a voice recognition dictation system. (JANELL VERA APRN) Attending Co-Sign The patient was seen and interviewed as well as examined at the bedside. The chart was reviewed. The case was discussed. Agree with the plan of care. (JERI OLIVAREZ DO) Departure Departure: Impression: Primary Impression: Urinary tract infection Qualified Codes: N30.01 - Acute cystitis with hematuria Disposition: HOME / SELF CARE / HOMELESS Condition: GOOD Referrals: PCP,SANTANA (PCP) Patient Instructions: Urinary Tract Infection Additional Instructions: You were seen in the ER today for right lower abdominal pain that radiated to your back. Your blood work was unremarkable. CT scan of your abdomen was unremarkable. You were tested for COVID-19 in the ER today. You will receive your results in 24 to 48 hours. Please self isolate until you receive these results. Your urinalysis was positive for urinary tract infection. This is treated with an antibiotic. You were given your first dose in the ER. Please start and finish the antibiotic completely. He can take Tylenol or ibuprofen for your pain. Increase your fluids. Avoid bladder irritants like caffeine, alcohol, sugary beverages. Follow-up with your primary care provider tomorrow or soon as possible regarding your ER visit. If you develop uncontrollable nausea or vomiting, high fevers, chest pain, shortness of breath, severe abdominal pain return to the ER. EMERGENCY DEPARTMENT GENERAL DISCHARGE INSTRUCTIONS Thank you for coming to [facility] (ED) today and trusting us with you care. We trust that you had a positivie experience in our Emergency Department. If you wish to speak to the department management, you may call the director at [phone]. YOUR FOLLOW UP INSTRUCTIONS ARE FOLLOWS: 1. Do you have a private Doctor? If you do not have a private doctor, please ask for a resource list of physicians or clinics that may be able to assist you with foll ow up care. 2. The Emergency Physician has interpreted your x-rays. The X-Ray specialist will also review them. If there is a change in the findings, you will be notified in 48 hours when at all possible. 3. A lab test or culture has been done, your results will be reviewed and you will be notified if you need a change in treatment. ADDITIONAL INSTRUCTIONS AND INFORMATION: 1. Your care today has been supervised by a physician who is specially trained in emergency care. Many problems require more than one evaluation for a complete diagnosis and treatment. We recommend that you schedule your follow up appointment as re commended to ensure complete treatment of you illness or injury. If you are unable to obtain follow up care and continue to have a problem, or if your condition worsens, we recommend that you return to the ED. 2. We are not able to safely determine your condition over the phone nor are we able to give sound medical advice over the phone. For these safety reasons, if you call for medical advice we will ask you to come to the ED for further evaluation. 3. If you have any questions regarding these discharge instructions please call the ED at [phone]. SAFETY INFORMATION: In the interest of safety, wellness, and injury prevention; we encourage you to wear your sealbelt, if you smoke; quite smoking, and we encourage family to use a protective helmet for bicycling and other sporting events that present an increased risk for head injury. IF YOUR SYMPTOMS WORSEN OR NEW SYMPTOMS DEVELOP, OR YOU HAVE CONCERNS ABOUT YOUR CONDITION; OR IF YOUR CONDITION WORSENS WHILE YOU ARE WAITING FOR YOUR FOLLOW UP APPOINTMENT; EITHER CONTACT YOUR PRIMARY CARE DOCTOR, THE PHYSICIAN WHOSE NAME AND NUMBER YOU WERE GIVEN, OR RETURN TO THE ED IMMEDIATELY. Scripts Cephalexin (CEPHALEXIN) 500 Mg Tablet 1 TAB PO BID for uti for 7 Days, #14 TAB 0 Refills Prov: JANELL VERA APRN 05/06/21 JANELL VERA APRN May 06, 2021 20:30 JERI OLIVAREZ DO May 08, 2021 05:34
[2021-05-06 21:02] LABS: BASO # 0.1 x10^3/uL (0.0-0.2); BASO % 1 % (0-3); EOS # 0.3 x10^3/uL (0.0-0.7); EOS % 3 % (0-3); HEMATOCRIT 36.4 % (36.0-47.0); LYMPH # 3.4 x10^3/uL (1.0-4.8); LYMPH % 34 % (24-48); MEAN CORPUSCULAR HEMOGLOBIN 29 pg (25-35); MEAN CORPUSCULAR HGB CONC 33 g/dL (31-37); MEAN CORPUSCULAR VOLUME 88 fL (79-100); MONO # 0.8 x10^3/uL (0.0-1.1); MONO % 8 % (0-9); NEUT # 5.4 x10^3uL (1.8-7.7); NEUT % 54 % (31-73); PLATELET COUNT 344 x10^3/uL (140-400); RED BLOOD COUNT 4.14 x10^6/uL (3.50-5.40); RED CELL DISTRIBUTION WIDTH 14.9 % (11.5-14.5)
--- NOTE | 2021-05-06 21:02 | RAD ---
Exam: CT of abdomen and pelvis without contrast INDICATION: Right-sided abdominal and flank pain TECHNIQUE: Sequential axial images through the abdomen and pelvis obtained without IV contrast. Sagit mathew and coronal reformatted images were reconstructed from the axial data and reviewed. Exposure: One or more of the following in the visualized dose reduction techniques were utilized for this examination: 1. Automated exposure control 2. Adjustment of the MA and/or KV according to patient size 3. Use of iterative of reconstructive technique Comparisons: 03/16/2021 FINDINGS: Heart size is normal. No pericardial effusion. Visualized lung bases are clear. No pleural effusion. Evaluation solid organs limited secondary to noncontrast technique. Liver, spleen, pancreas, and adrenals are unremarkable. Gallbladder surgically absent. No perinephric inflammation or hydronephrosis. No renal or ureteral calculi identified. Bladder is decompressed not well evaluated. Uterus is nonenlarged. No abnormal adnexal mass. Large and small bowel are unremarkable. Appendix is is not identified. No free intra-abdominal air or fluid. No obstruction. Abdominal aorta has a normal course and caliber. No enlarged abdominal lymph nodes are identified. IMPRESSION: No renal or ureteral calculi. No evidence for obstructive uropathy. Electronically signed by: Ying Neumann MD (05/06/2021 8:59 PM) [facility]
[2021-05-06 21:13] LABS: CALCIUM 8.9 mg/dL (8.5-10.1); CREATININE 0.8 mg/dL (0.6-1.0); GFR 76.9; POTASSIUM 3.8 mmol/L (3.5-5.1)
[2021-05-06 21:19] LABS: ALBUMIN 3.5 g/dL (3.4-5.0); ALBUMIN/GLOBULIN RATIO 0.9 (1.0-1.7); TOTAL BILIRUBIN 0.3 mg/dL (0.2-1.0); TOTAL PROTEIN 7.2 g/dL (6.4-8.2)
[2021-05-06 21:32] LABS: BILIRUBIN,URINE NEG (NEG); CLARITY,URINE HAZY; COLOR,URINE YELLOW; GLUCOSE,URINE NEG (NEG); NITRITE,URINE NEG (NEG)
[2021-05-06 21:33] LABS: BACTERIA,URINE 0 /HPF (0-FEW); SQUAMOUS EPITHELIAL CELL,UR OCC /LPF
[2021-05-06] MEDS ORDERED: CEPH500T PO (21:41)
[2021-05-06 21:57] VITALS: BP 105/52
[2021-05-06] MEDS ORDERED: CEPHALEXIN 250 MG CAPSULE PO ONE (22:00)
== END 2021-05-06 21:58 | disposition home or self-care (01) ==
LOC: ER 20:07
DX: N30.01 Acute cystitis with hematuria (principal); Z20.822 Contact with and (suspected) exposure to COVID-19; Z87.442 Personal history of urinary calculi; Z87.891 Personal history of nicotine dependence; Z90.89 Acquired absence of other organs; Z90.49 Acquired absence of other specified parts of digestive tract; Z98.51 Tubal ligation status; Z88.8 Allergy status to other drugs, medicaments and biological substances
CPT/HCPCS: 36415; 74176; 80053; 81001; 83690; 85025; 87086; 96361; 96374; 96375; 99284; C9803; J2405; J3010; J7030; U0003

== ENCOUNTER 2021-05-10 18:32 | Emergency (ER) | payer SELFPAY ==
[~2021-05-10] VITALS: Ht 152.4 cm; Wt 46.5 kg
[~2021-05-10 18:32] MED LIST changes: +CEPH500T PO
[2021-05-10 20:00] VITALS: BP 126/59
[2021-05-10] MEDS ORDERED: HYDROcodone/APAP 5/325MG 1 TAB TABLET PO ONE (20:15)
--- NOTE | 2021-05-10 20:19 | PHYS DOC ---
Past History Past Medical History: Kidney Stones Additional Past Medical Histor: low back pain Past Surgical History: Appendectomy, Cholecystectomy, Tubal ligation Additional Past Surgical Histo: Left shoulder rotator cuff x 3, L-spine fusion, R eye prosthetic, Smoking: Cigarettes, Less than 1pk/day, Quit Less Than 1 Year Alcohol Use: Rarely Drug Use: None General Adult EDM: Chief Complaint: ABDOMINAL PAIN HPI: HPI: Patient is a [age] year old [sex] who presents with [] 45-year-old woman presents to the emergency department complaining of several weeks to months of right lower quadrant and right pelvic pain, the patient has a reported history of kidney stones, seen in the ED several days ago and diagnosed with a UTI, had a CT of the abdomen pelvis that was negative at that time, she also believes she may have an ovarian cyst although has not had any primary care in several months, the patient denies any fever, chills, no vaginal bleeding or discharge, no nausea/vomiting or diarrhea, she has already had her appendix and gallbladder removed. Review of Systems: Review of Systems: General: no fevers , no chills, no general weakness Eyes: no blurred vision, no diplopia Skin: no rashes Neck: no swelling, no neck stiffness, no neck pain Heme: no bleeding, no lymph node enlargement Ear/Nose/Throat: No sore throat, no runny nose, no hearing loss, no difficulty swallowing Cardiovascular: no Chest pain, no palpitations Respiratory: No dyspnea, no cough, no hemoptysis Gastrointestinal: +abdominal pain, no nausea, no vomiting, no diarrhea, no blood in stool Genitourinary: no dysuria, no hematuria Musculoskeletal: no back pain, no leg pain, no arm pain, no arthralgia Neurologic: no headaches, no dizziness, no focal numbness/tingling, no focal weakness Psych: no depression, no anxiety, no SI/HI *All review of systems are negative other than what is noted above Current Medications: Current Meds: Current Medications Medications (Trade) Dose Ordered Sig/Geovanny Start Time Stop Time Status Last Admin Dose Admin Acetaminophen/ Hydrocodone Bitart (Lortab 5/325) 1 tab 1X ONCE 05/10/21 20:15 05/10/21 20:16 UNV Allergies: Allergies: Allergies Coded Allergies Type Severity Reaction Last Updated Verified cyclobenzaprine Allergy Unknown 03/16/21 Yes meloxicam Allergy Unknown 03/16/21 Yes naproxen Allergy Unknown 03/16/21 Yes tramadol Allergy Unknown 03/16/21 Yes Physical Exam: PE: Gen-well appearing, no acute distress Head: Normocephalic/Atraumatic ENT: atraumatic, PERRLA, EOMI, oropharynx clear Neck: supple, full ROM/strength, no JVD, no nuchal rigidity Lungs: no distress, speaks in full sentences, Clear to auscultation bilaterally CV: reg rate, rhythm, no murmus/rubs/gallops, peripheral pulses equal in all extremities Abdomen: soft/nontender, no guarding/rebound tenderness, no rigidity, non distended, normoactive bowel sounds Musculoskeletal: full ROM/strength in all extremities, atraumatic, no swelling Back: full range of motion/strength Skin: intact, no rashes Lymph: no gross GOMEZ Neuro: alert and oriented x 4, CN 2-12 grossly intact, Motor strength is 5/5 in all extremities, no focal sensory deficits, no focal ataxia, ambulatory with steady gait Psych: normal mood/affect EKG: EKG: [] Radiology/Procedures: Radiology/Procedures: [] Heart Score: C/O Chest Pain: No Risk Factors: Risk Factors: DM, Current or recent (<one month) smoker, HTN, HLP, family history of CAD, obesity. Risk Scores: Score 0 - 3: 2.5% MACE over next 6 weeks - Discharge Home Score 4 - 6: 20.3% MACE over next 6 weeks - Admit for Clinical Observation Score 7 - 10: 72.7% MACE over next 6 weeks - Early Invasive Strategies Course & Med Decision Making: Course & Med Decision Making Pertinent Labs and Imaging studies reviewed. (See chart for details) [] 45-year-old female comes to the emergency department complaining of right lower quadrant abdominal pain that appears to be subacute in nature although she was here recently and had labs and a negative CT, was put on antibiotics for presumed UTI, per differential diagnosis in this patient could be not limited to a UTI/pyelonephritis, kidney stone, myofascial strain, ovarian cyst, she has had her appendix and gallbladder removed, unlikely AAA, SBO, ectopic , ovarian torsion, TOA, mesenteric ischemia unlikely, unlikely any incarcerated hernia, plan at this time is to check urine, labs, abdominal x-ray and also transvaginal ultrasound, I did advise this to the patient especially to rule out any sinister conditions like ovarian torsion, ectopic or any tubo-ovarian abscess, she stated to me that she did not wish to wait for this but will accept us doing some lab work and urine test and an x-ray, was requesting pain medicine, will reevaluate exam the patient admits of work-up and determine the best course of action is a data becomes available Reevaluation 9:08 PM: She does have mild leukocytosis, some red blood cells in the urine, nontender at time of exam, x-ray negative, I did again recommend an ultrasound but she refused and wanted to go home, believe she is stable for discharge but will need close outpatient primary care follow-up Patient was seen in the ED for several weeks of abdominal pain that improved in the emergency department, there is no apparent evidence of any emergency medical pathology at this time, patient was advised follow-up with a primary care provider /physician in the next 24 hours, she does not have 1 so I did refer to Dr. Soler, and to return to the ED before then if any new or worsening / concerning symptoms had developed. All questions and concerns were addressed at time of disposition Adry Disclaimer: Adry Disclaimer: This electronic medical record was generated, in whole or in part, using a voice recognition dictation system. Departure Departure: Impression: Primary Impression: Abdominal pain Qualified Codes: R10.9 - Unspecified abdominal pain Disposition: HOME / SELF CARE / HOMELESS Condition: IMPROVED Referrals: TANJA SOLER Patient Instructions: Abdominal Pain, Pelvic Pain, Female Additional Instructions: The good news is your test you are okay, I do want you to follow-up with a primary care doctor/provider in the next 24 to 48 hours I do recommend they do a pelvic ultrasound, please return to the nearest emergency room before this if any new or worsening/concerning symptoms develop TRACY KLEIN MD May 10, 2021 20:19
[2021-05-10 20:30] LABS: U PREG PATIENT NEGATIVE (NEG)
[2021-05-10 20:42] LABS: BASO # 0.1 x10^3/uL (0.0-0.2); BASO % 1 % (0-3); EOS # 0.3 x10^3/uL (0.0-0.7); EOS % 2 % (0-3); HEMATOCRIT 36.3 % (36.0-47.0); HEMOGLOBIN 11.8 g/dL (12.0-15.5); LYMPH # 3.2 x10^3/uL (1.0-4.8); LYMPH % 24 % (24-48); MEAN CORPUSCULAR HEMOGLOBIN 29 pg (25-35); MEAN CORPUSCULAR HGB CONC 33 g/dL (31-37); MEAN CORPUSCULAR VOLUME 88 fL (79-100); MONO # 0.9 x10^3/uL (0.0-1.1); MONO % 6 % (0-9); NEUT % 67 % (31-73); PLATELET COUNT 354 x10^3/uL (140-400); RED BLOOD COUNT 4.12 x10^6/uL (3.50-5.40); RED CELL DISTRIBUTION WIDTH 15.2 % (11.5-14.5); WHITE BLOOD COUNT 13.5 x10^3/uL (4.0-11.0)
[2021-05-10 20:51] LABS: BACTERIA,URINE 0 /HPF (0-FEW); BILIRUBIN,URINE NEG (NEG); CLARITY,URINE CLOUDY; COLOR,URINE YELLOW; GLUCOSE,URINE NEG (NEG); NITRITE,URINE NEG (NEG); RBC,URINE >40 /HPF (0-2); UROBILINOGEN,URINE 0.2 mg/dL (0.2 mg/dL); WBC,URINE 0 /HPF (0-4)
[2021-05-10 20:52] LABS: SQUAMOUS EPITHELIAL CELL,UR FEW /LPF
[2021-05-10 20:55] LABS: CALCIUM 9.2 mg/dL (8.5-10.1); CREATININE 0.7 mg/dL (0.6-1.0); GFR 89.7; POTASSIUM 4.1 mmol/L (3.5-5.1)
--- NOTE | 2021-05-10 21:00 | RAD ---
XR ABDOMEN 1V History: Reason: Abdomen pain, hx renal calculi, cholecystectomy, hysterectomy / Spl. Instructions: / History: Technique: Supine view the abdomen. Comparison: CT May 06, 2021 Findings: Minimal small bowel gas. Air and stool throughout the colon. Surgical clips right upper quadrant. Pos top changes lumbar spine. Phleboliths projecting over the pelvis. Impression: 1. Nonobstructed bowel gas pattern. Electronically signed by: Jakob Vega DO (05/10/2021 8:58 PM) [facility] [place]
[2021-05-10 21:01] LABS: ALBUMIN 3.5 g/dL (3.4-5.0); ALBUMIN/GLOBULIN RATIO 0.9 (1.0-1.7); TOTAL BILIRUBIN 0.3 mg/dL (0.2-1.0); TOTAL PROTEIN 7.2 g/dL (6.4-8.2)
== END 2021-05-10 21:10 | disposition home or self-care (01) ==
LOC: ER 18:32
DX: R10.31 Right lower quadrant pain (principal); R10.2 Pelvic and perineal pain; Z87.442 Personal history of urinary calculi; Z87.440 Personal history of urinary (tract) infections; Z87.891 Personal history of nicotine dependence; Z90.89 Acquired absence of other organs; Z90.49 Acquired absence of other specified parts of digestive tract; Z98.51 Tubal ligation status; Z88.8 Allergy status to other drugs, medicaments and biological substances
CPT/HCPCS: 36415; 74018; 80053; 81001; 81025; 85025; 87086; 99284

== ENCOUNTER 2021-07-04 18:33 | Emergency (ER) | payer SELFPAY ==
[~2021-07-04] VITALS: Ht 152.4 cm; Wt 46.5 kg
--- NOTE | 2021-07-04 20:35 | PHYS DOC ---
Past History Past Medical History: Anxiety, Arthritis, Bronchitis, Kidney Stones, Sciatica Additional Past Medical Histor: low back pain Past Surgical History: Appendectomy, Cholecystectomy, Tubal ligation Additional Past Surgical Histo: Left shoulder rotator cuff x 3, L-spine fusion, R eye prosthetic, Smoking: Cigarettes, Less than 1pk/day, Quit Less Than 1 Year Alcohol Use: Rarely Drug Use: None General Adult EDM: Chief Complaint: SHOUDLER HPI: HPI: ".. I hurt this Rt. shoulder.. " " It is nga like my Lt. shoulder.. when I had a rotator cuff injury..." Patient is a 45 year old female who presents with above hx and complaints of right shoulder pain. Patient denies any specific history of injury. Pain appears to be exacerbated with movement of the right shoulder. Does have some increased pain with isolation of rotator cuff muscles. Patient does have deltoid sensation. Distal neurovascular is equal to left hand. Patient does have past medical history of kidney stones, chronic low back pain rotator cuff injury left shoulder, spinal fusions, arthritis, right eye prosthetic placement, patient does continue to smoke but has attempted to stop this past year.. The patient also has history of surgeries appendectomy, cholecystectomy and tubal ligation. Patient denies any recent travel. No specific ill contacts. Has not gotten Covid vaccination. Patient denies any history of immunosuppression. Review of Systems: Review of Systems: Constitutional: Denies fever or chills Eyes: Denies change in visual acuity HENT: Denies nasal congestion or sore throat Respiratory: Denies cough or shortness of breath Cardiovascular: Denies chest pain or edema GI: Denies abdominal pain, nausea, vomiting, bloody stools or diarrhea : Denies dysuria Musculoskeletal: Complains of right shoulder pain Integument: Denies rash Neurologic: Denies headache, focal weakness or sensory changes Endocrine: Denies polyuria or polydipsia Lymphatic: Denies swollen glands Psychiatric: Denies depression or anxiety Family History: Family History: Noncontributory to presentation Current Medications: Current Meds: See nursing for home meds Allergies: Allergies: Allergies Coded Allergies Type Severity Reaction Last Updated Verified cyclobenzaprine Allergy Unknown 03/16/21 Yes meloxicam Allergy Unknown 03/16/21 Yes naproxen Allergy Unknown 03/16/21 Yes tramadol Allergy Unknown 03/16/21 Yes Physical Exam: PE: Constitutional: Mild distress, non-toxic appearance. [] HENT: Normocephalic, atraumatic, bilateral external ears normal, oropharynx moist, no oral exudates, nose normal. [] Eyes: Left conjunctiva normal, no discharge. Has a right eye prosthetic Neck: Normal range of motion, no tenderness, supple, no stridor. Collar Cardiovascular:Heart rate regular rhythm, no murmur []. Bedside monitor shows sinus rhythm 90s no acute morphology. Lungs & Thorax: Bilateral breath sounds equal apex scattered wheezes auscultation [] Abdomen: Bowel sounds normal, soft, no tenderness, no masses, no pulsatile masses. Old scars Skin: Warm, dry, no erythema, no rash. Poor turgor Back: No tenderness, no CVA tenderness. [] Extremities: No tenderness except in right shoulder, no cyanosis, no clubbing, ROM intact, no edema. Arthritic changes changes.. No cording appreciated. Surgery scars on left shoulder. Both shoulders have crepitation with range of motion. Isolating rotator cuff muscles on right this increases her pain. Neurologic: Alert and oriented X 3, moves all extremities on request, has distal sensory, no focal deficits noted. [] Psychologic: Affect anxious, judgement normal, mood normal. [] Current Patient Data: Vital Signs: Vital Signs Date Time Temp Pulse Resp B/P (MAP) Pulse Ox O2 Delivery O2 Flow Rate FiO2 07/04/21 19:34 98.5 99 16 128/54 (78) 99 Room Air EKG: EKG: [] Radiology/Procedures: Radiology/Procedures: [][address] [address] IMAGING REPORT Signed PATIENT: SIMON AZAR ACCOUNT: [id number] : 1975 LOCATION: ER AGE: 45 SEX: F EXAM STATUS: REG ER ORD. PHYSICIAN: SHAWANDA MORALES MD REASON: pain PROCEDURE: SHOULDER RIGHT 1V XR RT SHOULDER 1 VIEW History: Reason: pain / Spl. Instructions: / History: Technique: 3 views right shoulder Comparison: January 05, 2019 Findings: Normal alignment. No acute fracture. Impression: 1. No acute osseous abnormality. Electronically signed by: Jakob Whitehead DO (07/04/2021 9:56 PM) [facility] DICTATED AND SIGNED BY: JAKOB WHITEHEAD DO DATE: 07/04/212153 CC: SHAWANDA MORALES MD; PCP,NO ~MTH0 0 IMAGING REPORT Signed PATIENT: SIMON AZAR ACCOUNT: [id number] : 1975 LOCATION: ER AGE: 45 SEX: F EXAM STATUS: REG ER ORD. PHYSICIAN: SHAWANDA MORALES MD REASON: pain PROCEDURE: SHOULDER RIGHT 1V XR RT SHOULDER 1 VIEW History: Reason: pain / Spl. Instructions: / History: Technique: 3 views right shoulder Comparison: January 05, 2019 Findings: Normal alignment. No acute fracture. Impression: 1. No acute osseous abnormality. Electronically signed by: Jakob Whitehead DO (07/04/2021 9:56 PM) [facility] DICTATED AND SIGNED BY: JAKOB WHITEHEAD DO DATE: 07/04/212153 CC: SHAWANDA MORALES MD; PCP,NO ~MTH0 0 Heart Score: C/O Chest Pain: N/A Risk Factors: Risk Factors: DM, Current or recent (<one month) smoker, HTN, HLP, family history of CAD, obesity. Risk Scores: Score 0 - 3: 2.5% MACE over next 6 weeks - Discharge Home Score 4 - 6: 20.3% MACE over next 6 weeks - Admit for Clinical Observation Score 7 - 10: 72.7% MACE over next 6 weeks - Early Invasive Strategies Course & Med Decision Making: Course & Med Decision Making Pertinent Labs and Imaging studies reviewed. (See chart for details) Patient use warm compresses. Patient take anti-inflammatories. Patient follow- up primary care. Consider follow-up of [facility] Orth[facility]. May need a MRI to truly evaluate right shoulder discomfort. May be a candidate for a steroid injection injection for right shoulder bursitis. Follow-up primary care. Must Impression: 1. Rotator Cuff Injury 2. Bursitis [] Adry Disclaimer: Adry Disclaimer: This electronic medical record was generated, in whole or in part, using a voice recognition dictation system. Departure Departure: Referrals: PCP,NO (PCP) Adry Disclaimer This chart was dictated in whole or in part using Voice Recognition software in a busy, high-work load, and often noisy Emergency Department environment. It may contain unintended and wholly unrecognized errors or omissions. Dragon Disclaimer This chart was dictated in whole or in part using Voice Recognition software in a busy, high-work load, and often noisy Emergency Department environment. It may contain unintended and wholly unrecognized errors or omissions. SHAWANDA MORALES MD Jul 04, 2021 20:35
[2021-07-04] MEDS ORDERED: oxyCODONE/APAP 5/325 1 TAB TABLET PO ONE (21:30)
--- NOTE | 2021-07-04 21:56 | RAD ---
XR CHEST 2V History: Reason: pain / Spl. Instructions: / History: Comparison: February 14, 2021 Findings: No consolidation or pleural effusion. Normal heart size. No pneumothorax. Surgical clips right upper quadrant. Impression: 1. No acute cardiopulmonary process. Electronically signed by: Jakob Vega DO (07/04/2021 9:54 PM) [facility]
--- NOTE | 2021-07-04 21:58 | RAD ---
XR RT SHOULDER 1 VIEW History: Reason: pain / Spl. Instructions: / History: Technique: 3 views right shoulder Comparison: January 05, 2019 Findings: Normal alignment. No acute fracture. Impression: 1. No acute osseous abnormality. Electronically signed by: Jakob Vega DO (07/04/2021 9:56 PM) [facility]
[2021-07-05 00:05] VITALS: BP 124/56
== END 2021-07-05 00:10 | disposition home or self-care (01) ==
LOC: ER 18:33
DX: S46.001A Unspecified injury of muscle(s) and tendon(s) of the rotator cuff of right shoulder, initial encounter (principal); M75.51 Bursitis of right shoulder; M19.90 Unspecified osteoarthritis, unspecified site; Z87.442 Personal history of urinary calculi; Z87.891 Personal history of nicotine dependence; X58.XXXA Exposure to other specified factors, initial encounter; Y93.89 Activity, other specified; Y92.89 Other specified places as the place of occurrence of the external cause; Y99.8 Other external cause status
CPT/HCPCS: 71046; 73020; 99284

== ENCOUNTER 2021-07-07 14:40 | Emergency (ER) | payer SELFPAY ==
[~2021-07-07] VITALS: Ht 152.4 cm; Wt 48.0 kg
[2021-07-07 14:57] VITALS: BP 122/60
[2021-07-07] MEDS ORDERED: HYDROcodone/APAP 5/325MG 1 TAB TABLET PO ONE (15:15)
[2021-07-07] MEDS ORDERED: HYDR-2759 PO (15:17)
--- NOTE | 2021-07-07 15:18 | PHYS DOC ---
Past History Past Medical History: Anxiety, Arthritis, Bronchitis, Kidney Stones, Sciatica Additional Past Medical Histor: low back pain Past Surgical History: Appendectomy, Cholecystectomy, Tubal ligation Additional Past Surgical Histo: Left shoulder rotator cuff x 3, L-spine fusion, R eye prosthetic, Smoking: Cigarettes, Less than 1pk/day, Quit Less Than 1 Year Alcohol Use: None Drug Use: None General Adult EDM: Chief Complaint: SHOULDER INJURY HPI: HPI: 45-year-old female presents with right shoulder pain and cough. Her shoulder pain has been diagnosed as bursitis in the past rotator cuff tear. Patient was told to come back to the emergency room if it did not get better so she came back today. She has an appointment with orthopedics but has not for a week. She also complains of cough got worse last night. She gets bronchitis once or twice a year and wants to make sure she does not have that or pneumonia. She denies fever or chills. She has no other complaints this time. Review of Systems: Review of Systems: Constitutional: Denies fever or chills Eyes: Denies change in visual acuity HENT: Denies nasal congestion or sore throat Respiratory: Cough without shortness of breath Cardiovascular: Denies chest pain or edema GI: Denies abdominal pain, nausea, vomiting, bloody stools or diarrhea : Denies dysuria Musculoskeletal: Right shoulder pain Integument: Denies rash Neurologic: Denies headache, focal weakness or sensory changes Endocrine: Denies polyuria or polydipsia Lymphatic: Denies swollen glands Psychiatric: Denies depression or anxiety Allergies: Allergies: Allergies Coded Allergies Type Severity Reaction Last Updated Verified cyclobenzaprine Allergy Unknown 03/16/21 Yes meloxicam Allergy Unknown 03/16/21 Yes naproxen Allergy Unknown 03/16/21 Yes tramadol Allergy Unknown 03/16/21 Yes Physical Exam: PE: Constitutional: Well developed, well nourished, no acute distress, non-toxic appearance. [] HENT: Normocephalic, atraumatic, bilateral external ears normal, oropharynx moist, no oral exudates, nose normal. [] Eyes: PERRLA, EOMI, conjunctiva normal, no discharge. [] Neck: Normal range of motion, no tenderness, supple, no stridor. [] Cardiovascular:Heart rate regular rhythm, no murmur [] Lungs & Thorax: Bilateral breath sounds clear to auscultation [] Abdomen: Bowel sounds normal, soft, no tenderness, no masses, no pulsatile masses. [] Skin: Warm, dry, no erythema, no rash. [] Back: No tenderness, no CVA tenderness. [] Extremities: No tenderness, no cyanosis, no clubbing, ROM intact, no edema. [] Neurologic: Alert and oriented X 3, normal motor function, normal sensory function, no focal deficits noted. [] Psychologic: Affect normal, judgement normal, mood normal. [] Current Patient Data: Vital Signs: Vital Signs Date Time Temp Pulse Resp B/P (MAP) Pulse Ox O2 Delivery O2 Flow Rate FiO2 07/07/21 14:57 99.3 68 15 122/60 (80) 98 Room Air EKG: EKG: [] Radiology/Procedures: Radiology/Procedures: [] Impressions: XR CHEST 1V History: Reason: cough, fever / Spl. Instructions: / History: Comparison: July 04, 2021 Findings: No consolidation or pleural effusion. Normal heart size. No pneumothorax. Surgical clips right upper quadrant. Impression: 1. No acute cardiopulmonary process. Electronically signed by: Jakob Whitehead DO (07/07/2021 3:24 PM) [facility] DICTATED AND SIGNED BY: JAKOB WHITEHEAD DO DATE: 07/07/21 1523 CC: JERI OLIVAREZ DO; PCP,NO ~MTH0 0 Heart Score: C/O Chest Pain: N/A Risk Factors: Risk Factors: DM, Current or recent (<one month) smoker, HTN, HLP, family history of CAD, obesity. Risk Scores: Score 0 - 3: 2.5% MACE over next 6 weeks - Discharge Home Score 4 - 6: 20.3% MACE over next 6 weeks - Admit for Clinical Observation Score 7 - 10: 72.7% MACE over next 6 weeks - Early Invasive Strategies Course & Med Decision Making: Course & Med Decision Making Pertinent Labs and Imaging studies reviewed. (See chart for details) The patient's chest x-ray is unremarkable. For her shoulder pain, I have encouraged her to keep her appointment with orthopedics next week. I will give her 1 [place] 5/325 in the emergency room and a short course for home. The roberto ent does have multiple entries in the drug tracking database but the last one was early May. [] Adry Disclaimer: Adry Disclaimer: This electronic medical record was generated, in whole or in part, using a voice recognition dictation system. Departure Departure: Impression: Primary Impression: Right shoulder pain Qualified Codes: M25.511 - Pain in right shoulder Disposition: HOME / SELF CARE / HOMELESS Condition: STABLE Referrals: PCP,NO (PCP) Patient Instructions: Shoulder Pain, [id number]-rg-[id number] Scripts Hydrocodone/Acetaminophen (Hydrocodone-Acetamin 5-325 mg) 1 Each Tablet 1 EACH PO Q4-6HRS PRN for PAIN, #10 TAB Prov: JERI OLIVAREZ DO 07/07/21 JERI OLIVAREZ DO Jul 07, 2021 15:18
--- NOTE | 2021-07-07 15:26 | RAD ---
XR CHEST 1V History: Reason: cough, fever / Spl. Instructions: / History: Comparison: July 04, 2021 Findings: No consolidation or pleural effusion. Normal heart size. No pneumothorax. Surgical clips right upper quadrant. Impression: 1. No acute cardiopulmonary process. Electronically signed by: Jkaob Vega DO (07/07/2021 3:24 PM) [facility] [place]
== END 2021-07-07 15:51 | disposition home or self-care (01) ==
LOC: ER 14:40
DX: M25.511 Pain in right shoulder (principal); F17.210 Nicotine dependence, cigarettes, uncomplicated; Z87.442 Personal history of urinary calculi; Z90.49 Acquired absence of other specified parts of digestive tract; Z98.51 Tubal ligation status; Z88.6 Allergy status to analgesic agent; Z88.5 Allergy status to narcotic agent
CPT/HCPCS: 71045; 99283-25

== ENCOUNTER 2021-08-09 13:50 | Emergency (ER) | payer SELFPAY ==
[~2021-08-09] VITALS: Ht 152.4 cm; Wt 48.0 kg
[2021-08-09 13:50] VITALS: BP 104/50
[~2021-08-09 13:50] MED LIST changes: +DICY20TA PO; -DICY20TA3 PO; +HYDR-2759 PO
--- NOTE | 2021-08-09 14:23 | PHYS DOC ---
Past History Past Medical History: Anxiety, Arthritis, Bronchitis, Kidney Stones, Sciatica Additional Past Medical Histor: low back pain Past Surgical History: Appendectomy, Cholecystectomy, Tubal ligation Additional Past Surgical Histo: Left shoulder rotator cuff x 3, L-spine fusion, R eye prosthetic, Smoking: Cigarettes, Less than 1pk/day, Quit Less Than 1 Year Alcohol Use: None Drug Use: None General Adult EDM: Chief Complaint: SHOULDER INJURY HPI: HPI: Patient is a 45-year-old female coming in for right shoulder pain. Patient suggest that she tripped over her dog and caught herself on her outstretched hand and arm. States she felt a pop and is complaining of pain over her shoulder blade. Is right-handed. Otherwise has been well Review of Systems: Review of Systems: All other systems within normal limits except for as noted in the HPI Allergies: Allergies: Allergies Coded Allergies Type Severity Reaction Last Updated Verified cyclobenzaprine Allergy Unknown 03/16/21 Yes meloxicam Allergy Unknown 03/16/21 Yes naproxen Allergy Unknown 03/16/21 Yes tramadol Allergy Unknown 03/16/21 Yes Physical Exam: PE: Constitutional: Well developed, well nourished, no acute distress, non-toxic appearance. [] HENT: Normocephalic, atraumatic, bilateral external ears normal, nose normal. [] Eyes: PERRLA, conjunctiva normal, no discharge. [] Neck: No rigidity, supple, no stridor. [] Cardiovascular: Regular rate and rhythm, brisk cap refill [] Lungs & Thorax: Non labored symmetric respirations, no tachypnea or respiratory distress [] Abdomen: Soft, nondistended. Skin: Warm, dry, no erythema, no rash. [] Back: Unremarkable Extremities: No deformities, range of motion grossly intact, no lower extremity edema. Range of motion of right shoulder intact, no deformity, tenderness palpation on scapula and glenohumeral joint [] Neurologic: Alert and oriented X 3, no focal deficits noted. [] Psychologic: Affect normal, judgement normal, mood normal. [] EKG: EKG: [] Radiology/Procedures: Radiology/Procedures: [address] [address] IMAGING REPORT Signed PATIENT: SIMON AZAR ACCOUNT: [id number] : 1975 LOCATION: ER AGE: 45 SEX: F EXAM STATUS: REG ER ORD. PHYSICIAN: GERALDINE GILMORE MD REASON: fall, pain PROCEDURE: SHOULDER 2+V RIGHT EXAM: XR SHOULDER_RIGHT 2+ VIEWS, XR HUMERUS_RT 2 VIEWS 08/09/2021 2:15 PM CLINICAL INDICATION: Fall, pain COMPARISON: None TECHNIQUE: 3 views of the right shoulder and 2 views of the right humerus. FINDINGS: Right shoulder: No acute fracture. Alignment is normal. The glenohumeral and acromioclavicular joints are maintained. The subacromial space is preserved. Soft tissue is normal. Right humerus: No acute fracture. Alignment is normal. Soft tissue is normal. IMPRESSION: No acute osseous abnormality of the right shoulder or right humerus. Electronically signed by: Geraldine Thornton MD (08/09/2021 2:39 PM) [id number] DICTATED AND SIGNED BY: GERALDINE THORNTON MD DATE: 08/09/211434 CC: GERALDINE GILMORE MD; PCP,NO ~MTH0 0 [] Heart Score: C/O Chest Pain: No Risk Factors: Risk Factors: DM, Current or recent (<one month) smoker, HTN, HLP, family history of CAD, obesity. Risk Scores: Score 0 - 3: 2.5% MACE over next 6 weeks - Discharge Home Score 4 - 6: 20.3% MACE over next 6 weeks - Admit for Clinical Observation Score 7 - 10: 72.7% MACE over next 6 weeks - Early Invasive Strategies Course & Med Decision Making: Course & Med Decision Making Pertinent Labs and Imaging studies reviewed. (See chart for details) [] Dragon Disclaimer: Dragon Disclaimer: This electronic medical record was generated, in whole or in part, using a voice recognition dictation system. Departure Departure: Impression: Primary Impression: Right shoulder pain Disposition: HOME / SELF CARE / HOMELESS Condition: STABLE Referrals: PCP,NO (PCP) Patient Instructions: RICE - Routine Care for Injuries, Shoulder Pain GERALDINE GILMORE MD Aug 09, 2021 14:23
[2021-08-09] MEDS ORDERED: ACETAMINOPHEN/CODEINE 300/30MG TABLET PO ONE (14:30)
--- NOTE | 2021-08-09 14:41 | RAD ---
EXAM: XR SHOULDER_RIGHT 2+ VIEWS, XR HUMERUS_RT 2 VIEWS 08/09/2021 2:15 PM CLINICAL INDICATION: Fall, pain COMPARISON: None TECHNIQUE: 3 views of the right shoulder and 2 views of the right humerus. FINDINGS: Right shoulder: No acute fracture. Alignment is normal. The glenohumeral and acromioclavicular joints are maintained. The subacromial space is preserved. Soft tissue is normal. Right humerus: No acute fracture. Alignment is normal. Soft tissue is normal. IMPRESSION: No acute osseous abnormality of the right shoulder or right humerus. Electronically signed by: Geraldine Thornton MD (08/09/2021 2:39 PM) [id number]
== END 2021-08-09 14:52 | disposition home or self-care (01) ==
LOC: ER 13:50
DX: M25.511 Pain in right shoulder (principal); F41.9 Anxiety disorder, unspecified; M19.90 Unspecified osteoarthritis, unspecified site; Z87.891 Personal history of nicotine dependence; Z87.442 Personal history of urinary calculi; Z90.89 Acquired absence of other organs; Z90.49 Acquired absence of other specified parts of digestive tract; Z98.51 Tubal ligation status; Z88.8 Allergy status to other drugs, medicaments and biological substances
CPT/HCPCS: 73030; 73060; 99284

== ENCOUNTER 2021-09-11 15:18 | Emergency (ER) | payer SELFPAY ==
[~2021-09-11] VITALS: Ht 152.4 cm; Wt 48.0 kg
[2021-09-11] MEDS ORDERED: ASPIRIN CHEWABLE 81 MG TABLET. PO ONE (15:45)
--- NOTE | 2021-09-11 15:48 | PHYS DOC ---
Past History Past Medical History: Anxiety, Arthritis, Bronchitis, Kidney Stones, Sciatica Additional Past Medical Histor: low back pain Past Surgical History: Appendectomy, Cholecystectomy, Tubal ligation Additional Past Surgical Histo: Left shoulder rotator cuff x 3, L-spine fusion, R eye prosthetic, Smoking: Cigarettes, Less than 1pk/day, Quit Less Than 1 Year Alcohol Use: Occasionally Drug Use: None Adult General Chief Complaint Chief Complaint: CHEST PAIN HPI HPI Patient is a 45-year-old female presenting via POV for chest pain. Onset was this morning at 3:30 AM and awoke her from sleep. States pain is left-sided deep without radiation. States pain is dull and 7/10 in severity, has been constant since onset. She reports she visited family members and notified them of this pain, they were subsequently worried and advised she present to the ER for evaluation. Denies any history of cardiac issues, no diagnosed medical conditions, takes no medications on a daily basis. Has prior history of tobacco abuse, rare alcohol, no illicit drug abuse. Reports no early cardiac disease in first-degree relatives less than 50 years old Review of Systems Review of Systems Fourteen body systems of review of systems have been reviewed. See HPI for pertinent positives and negative responses, other king all other systems are negative, non-pertinent or non-contributory Allergies Allergies Allergies Coded Allergies Type Severity Reaction Last Updated Verified cyclobenzaprine Allergy Unknown 03/16/21 Yes meloxicam Allergy Unknown 03/16/21 Yes naproxen Allergy Unknown 03/16/21 Yes tramadol Allergy Unknown 03/16/21 Yes Physical Exam Physical Exam Constitutional: Well developed, well nourished, no acute distress, non-toxic appearance. HENT: Normocephalic, atraumatic, bilateral external ears normal, oropharynx moist, no oral exudates, nose normal. Eyes: PERRLA, EOMI, conjunctiva normal, no discharge. Neck: Normal range of motion, no tenderness, supple, no stridor. Cardiovascular: Heart rate regular, sinus rhythm, no murmurs rubs or gallops Lungs & Thorax: Bilateral breath sounds clear to auscultation Abdomen: Bowel sounds normal, soft, no tenderness, no masses, no pulsatile masses. Nonsurgical abdomen, no peritoneal signs Skin: Warm, dry, no erythema, no rash. Back: No tenderness, no CVA tenderness. Extremities: No tenderness, no cyanosis, no clubbing, ROM intact, no edema. Neurologic: Alert and oriented X 3, grossly normal motor & sensory function, no focal deficits noted. Psychologic: Affect normal, judgement normal, mood normal. Current Patient Data Vital Signs Vital Signs Date Time Temp Pulse Resp B/P (MAP) Pulse Ox O2 Delivery O2 Flow Rate FiO2 09/11/21 15:32 98.2 80 16 122/66 (84) 99 Room Air Lab Results Laboratory Tests Test 09/11/21 15:54 White Blood Count 8.6 x10^3/uL Red Blood Count 4.45 x10^6/uL Hemoglobin 12.7 g/dL Hematocrit 39.0 % Mean Corpuscular Volume 88 fL Mean Corpuscular Hemoglobin 29 pg Mean Corpuscular Hemoglobin Concent 33 g/dL Red Cell Distribution Width 16.0 % Platelet Count 320 x10^3/uL Neutrophils (%) (Auto) 60 % Lymphocytes (%) (Auto) 31 % Monocytes (%) (Auto) 6 % Eosinophils (%) (Auto) 2 % Basophils (%) (Auto) 1 % Neutrophils # (Auto) 5.2 x10^3uL Lymphocytes # (Auto) 2.7 x10^3/uL Monocytes # (Auto) 0.5 x10^3/uL Eosinophils # (Auto) 0.2 x10^3/uL Basophils # (Auto) 0.1 x10^3/uL Sodium Level 141 mmol/L Potassium Level 5.0 mmol/L Chloride Level 107 mmol/L Carbon Dioxide Level 25 mmol/L Anion Gap 9 Blood Urea Nitrogen 12 mg/dL Creatinine 0.7 mg/dL Estimated GFR (Cockcroft-Gault) 89.7 Glucose Level 104 mg/dL Calcium Level 8.7 mg/dL Troponin I High Sensitivity 5 ng/L Current Medications Medications (Trade) Dose Ordered Sig/Geovanny Route PRN Reason Start Time Stop Time Status Last Admin Dose Admin Aspirin (Aspirin Chewable) 324 mg 1X ONCE PO 09/11/21 15:45 09/11/21 15:50 DC 09/11/21 15:45 EKG EKG EKG ordered and interpreted by myself at 1533 hrs. is sinus rhythm at 67 bpm, u nremarkable intervals, no axis deviation, no obvious ischemic findings, no STEMI Radiology/Procedures Radiology/Procedures EXAM: CHEST 1 VIEW History: Chest pain COMPARISON: 07/04/2021 TECHNIQUE: Single portable radiograph of the chest FINDINGS: The cardiac silhouette is unremarkable. The lungs are clear bilaterally. The costophrenic sulci are clear and well demarcated. IMPRESSION: No radiographic evidence of an acute cardiopulmonary process. Electronically signed by: Jamil Mcwilliams MD (09/11/2021 4:17 PM) [id number] Heart Score C/O Chest Pain: Yes HEART Score for Chest Pain: HEART Score for Chest Pain Response (Comments) Value History Slighlty/Non-Suspicious 0 ECG Normal 0 Age >45 - < 65 1 Risk Factors No Risk Factors 0 Troponin < Normal Limit 0 Total 1 Risk Factors: Risk Factors: DM, Current or recent (<one month) smoker, HTN, HLP, family history of CAD, obesity. Risk Scores: Risk Factors: DM, Current or recent (<one month) smoker, HTN, HLP, family h istory of CAD, obesity. Course & Med Decision Making Course & Med Decision Making ABCs unremarkable HPI physical exam and comprehensive ER work-up nonconcerning for any emergent or surgical issues I reviewed heart score with patient, low risk for adverse cardiac events but I did disclose this might be an acute presentation more concerning pathology Ultimately patient felt reassured with ER work-up today and has access to outpatient PCP for which she plans to call tomorrow to review need for close outpatient follow-up and continued work-up Strict return precautions discussed and understood by patient, all questions and concerns addressed prior to ER departure Adry Disclaimer Adry Disclaimer This electronic medical record was generated, in whole or in part, using a voice recognition dictation system. Departure Departure: Impression: Primary Impression: Chest pain Disposition: HOME / SELF CARE / HOMELESS Condition: STABLE Referrals: PCP,NO (PCP) Additional Instructions: You were seen for chest pain. Your workup did not show any acute abnormalities today, but does not indicate that you do not have underlying cardiovascular disease. You do need to follow up with your primary doctor and potentially a pharmacy informaticist for further evaluation and treatment. You should return to the ED if you develop worsening chest pain, shortness of breath, fever, abnormal sweating, leg swelling, or any other new or concerning symptoms. TUAN KENNEY DO Sep 11, 2021 15:48
--- NOTE | 2021-09-11 16:19 | RAD ---
EXAM: CHEST 1 VIEW History: Chest pain COMPARISON: 07/04/2021 TECHNIQUE: Single portable radiograph of the chest FINDINGS: The cardiac silhouette is unremarkable. The lungs are clear bilaterally. The costophrenic sulci are clear and well demarcated. IMPRESSION: No radiographic evidence of an acute cardiopulmonary process. Electronically signed by: Jamil Mcwilliams MD (09/11/2021 4:17 PM) [id number]
[2021-09-11 16:34] VITALS: BP 121/64
[2021-09-11 16:46] LABS: CALCIUM 8.7 mg/dL (8.5-10.1); CREATININE 0.7 mg/dL (0.6-1.0); GFR 89.7
[2021-09-11 16:49] LABS: BASO # 0.1 x10^3/uL (0.0-0.2); BASO % 1 % (0-3); EOS # 0.2 x10^3/uL (0.0-0.7); EOS % 2 % (0-3); HEMOGLOBIN 12.7 g/dL (12.0-15.5); LYMPH # 2.7 x10^3/uL (1.0-4.8); LYMPH % 31 % (24-48); MEAN CORPUSCULAR HEMOGLOBIN 29 pg (25-35); MEAN CORPUSCULAR HGB CONC 33 g/dL (31-37); MEAN CORPUSCULAR VOLUME 88 fL (79-100); MONO # 0.5 x10^3/uL (0.0-1.1); MONO % 6 % (0-9); NEUT # 5.2 x10^3uL (1.8-7.7); NEUT % 60 % (31-73); PLATELET COUNT 320 x10^3/uL (140-400); RED BLOOD COUNT 4.45 x10^6/uL (3.50-5.40); WHITE BLOOD COUNT 8.6 x10^3/uL (4.0-11.0)
--- NOTE | 2021-09-11 17:15 | EKG ---
[address] [address] Test Date: 2021-09-11 Test Time: 15:29:59 Pat Name: SIMON AZAR Department: Room: Gender: F [employer]: CAROLYN : 1975 Requested By: TUAN KENNEY Order Number: [id number] Reading MD: Robert Walker MD Measurements Intervals [place] Rate: 67 P: 43 [place]: 164 QRS: 48 QRSD: 68 T: 30 QT: 338 QTc: 360 Interpretive Statements SINUS RHYTHM Electronically Signed On 09-11-2021 20:19:33 [employer] by Robert Walker MD
== END 2021-09-11 18:02 | disposition home or self-care (01) ==
LOC: ER 15:18
DX: R07.89 Other chest pain (principal); F41.9 Anxiety disorder, unspecified; M19.90 Unspecified osteoarthritis, unspecified site; Z87.442 Personal history of urinary calculi; Z87.891 Personal history of nicotine dependence; Z90.89 Acquired absence of other organs; Z90.49 Acquired absence of other specified parts of digestive tract; Z98.51 Tubal ligation status; Z88.8 Allergy status to other drugs, medicaments and biological substances
CPT/HCPCS: 36415; 71045; 80048; 84484; 85025; 93005; 99285